=== PATIENT | female | born 1945 | race Caucasian/White ===

== ENCOUNTER 2023-02-25 09:36 | Outpatient (REF) | payer MEDICARE, SELFPAY ==
[2023-02-25 11:14] LABS: MANUAL DIFF FLAG NO
[2023-02-25 12:06] LABS: Basophils Absolute Auto 0.1 X10*3/uL (0.0-0.2); Basophils Percent Auto 0.9 % (0-2); Eosinophils Absolute Auto 0.2 X10*3/uL (0.0-0.4); Eosinophils Percent Auto 2.8 % (0-4); Hematocrit 39.5 % (37.0-47.0); Hemoglobin 13.3 g/dl (12.0-16.0); Imm Gran Abs Auto 0.01 X10*3/uL (0.00-0.03); Imm Gran Pct Auto 0.2 % (0.0-0.4); Lymphocytes Absolute Auto 2.5 X10*3/uL (1.2-4.9); Lymphocytes Percent Auto 38.5 % (20-40); Mean Corpuscular HGB Conc 33.7 g/dl (31.0-35.0); Mean Corpuscular Hemoglobin 31.5 pg (27.0-33.0); Mean Corpuscular Volume 93.6 fL (80.0-98.0); Mean Platelet Volume 9.3 fL (9.4-12.3); Monocytes Absolute Auto 0.6 X10*3/uL (0.1-1.2); Monocytes Percent Auto 9.7 % (2-11); Neutrophils Absolute Auto 3.1 x10*3/uL (2.0-8.3); Neutrophils Percent Auto 47.9 % (45-73); Platelet Count 217 X10*3/uL (160-400); Red Blood Count 4.22 X10*6/uL (4.20-5.50); Red Cell Distribution Width 13.5 % (11.0-16.0); White Blood Count 6.4 X10*3/uL (4.8-10.8)
[2023-02-25 14:32] LABS: Alanine Aminotransferase 32 U/L (0-31); Alkaline Phosphatase 84 U/L (39-117); Anion Gap 12 (12-20); Aspartate Amino Transferase 28 U/L (5-31); Bilirubin Total 0.6 mg/dL (0.0-1.0); Blood Urea Nitrogen 15 mg/dL (9-16); Calcium 9.1 mg/dL (8.4-10.2); Carbon Dioxide 27 mmol/L (22-29); Chloride 109 mmol/L (96-108); Estimated Glomerular Filt Rate > 60; Glucose Random 85 mg/dL (60-115); Sodium 144 mmol/L (135-145); Total Protein 6.6 g/dL (6.5-8.0)
[2023-02-25 14:52] LABS: Thyroid Stimulating Hormone 0.45 uIU/mL (0.32-4.0); Vitamin D 25-OH Total 24.7 ng/mL (>30)
== END 2023-02-25 09:37 | disposition home or self-care (01) ==
LOC: HO.MANLDS 09:36
PROVIDERS: Visit Provider Internal Medicine
DX: I10 Essential (primary) hypertension (principal); E03.9 Hypothyroidism, unspecified; Z13.21 Encounter for screening for nutritional disorder
CPT/HCPCS: 36415; 80053; 82306; 84443; 85025

== ENCOUNTER 2023-10-31 10:31 | Outpatient (REF) | payer MEDICARE, SELFPAY ==
[2023-11-01 09:09] LABS: Lyme Abs Screen <0.90 index
== END 2023-10-31 10:32 | disposition home or self-care (01) ==
LOC: HO.MANLDS 10:31
PROVIDERS: Visit Provider Internal Medicine
DX: A69.20 Lyme disease, unspecified (principal)
CPT/HCPCS: 36415; 86617; 86618

== ENCOUNTER 2025-03-13 09:40 | Outpatient (REF) | payer MEDICARE, SELFPAY ==
[2025-03-13 13:34] LABS: MANUAL DIFF FLAG NO
[2025-03-13 13:37] LABS: Basophils Absolute Auto 0.1 X10*3/uL (0.0-0.2); Eosinophils Absolute Auto 0.1 X10*3/uL (0.0-0.4); Eosinophils Percent Auto 1.5 % (0-4); Hematocrit 40.7 % (37.0-47.0); Hemoglobin 13.7 g/dl (12.0-16.0); Imm Gran Abs Auto 0.02 X10*3/uL (0.00-0.03); Imm Gran Pct Auto 0.3 % (0.0-0.4); Lymphocytes Absolute Auto 2.3 X10*3/uL (1.2-4.9); Lymphocytes Percent Auto 37.3 % (20-40); Mean Corpuscular HGB Conc 33.7 g/dl (31.0-35.0); Mean Corpuscular Hemoglobin 32.2 pg (27.0-33.0); Mean Corpuscular Volume 95.8 fL (80.0-98.0); Monocytes Absolute Auto 0.6 X10*3/uL (0.1-1.2); Monocytes Percent Auto 10.1 % (2-11); Neutrophils Percent Auto 49.8 % (45-73); Platelet Count 251 X10*3/uL (160-400); Red Blood Count 4.25 X10*6/uL (4.20-5.50); Red Cell Distribution Width 13.4 % (11.0-16.0); White Blood Count 6.1 X10*3/uL (4.8-10.8)
[2025-03-13 14:18] LABS: Alanine Aminotransferase 27 U/L (0-31); Albumin Level 4.1 g/dL (3.5-5.0); Alkaline Phosphatase 90 U/L (39-117); Anion Gap 13 (12-20); Aspartate Amino Transferase 31 U/L (5-31); Bilirubin Total 0.5 mg/dL (0.0-1.0); Blood Urea Nitrogen 16 mg/dL (9-16); Calcium 9.5 mg/dL (8.4-10.2); Carbon Dioxide 27 mmol/L (22-29); Chloride 106 mmol/L (96-108); Estimated Glomerular Filt Rate > 60; Glucose Random 102 mg/dL (60-115); Sodium 142 mmol/L (135-145); Total Protein 7.4 g/dL (6.5-8.0)
[2025-03-13 14:27] LABS: Thyroid Stimulating Hormone 3.89 uIU/mL (0.32-4.0)
== END 2025-03-13 09:41 | disposition home or self-care (01) ==
LOC: HO.MANLDS 09:40
PROVIDERS: Visit Provider Internal Medicine
DX: E78.00 Pure hypercholesterolemia, unspecified (principal); E03.9 Hypothyroidism, unspecified; I10 Essential (primary) hypertension
CPT/HCPCS: 36415; 80053; 84443; 85025

== ENCOUNTER 2025-11-11 09:00 | Outpatient (REF) | payer MEDICARE, SELFPAY ==
[2025-11-11 14:53] LABS: Appearance Urine Turbid; Glucose Urine UA Negative (Negative); PH 6.0 (5.0-9.0); UMIC TRIGGER UACC YES
[2025-11-11 14:58] LABS: Specific Gravity - Urine 1.025 (1.005-1.025)
[2025-11-11 15:04] LABS: UACC Culture Trigger YES
--- OUTSIDE RECORDS SUMMARY | 2025-11-11 16:00 | XMS_ITS | Encounter Summary ---
Author Organization [facility] Address [address] [place] [address] [place] [address] Phone Care Team Providers Care Certified Marine Mechanic Name Role Phone Salvador Alanis DO Primary Care Provider [phone] Encounter Details Date Type Department Care Team (Late Contact Info) Description 07/07/2021 Procedure Pass [facility], [address] [address] Social History Tobacco Use Types Packs/Day Years Used Date Smoking Tobacco: Never Smokeless Tobacco: Never Alcohol Use Standard Drinks/Week Comments No 0 (1 standard drink = 0.6 oz pur e alcohol) Comments No Sex and Gender Information Value Date Recorded Sex Assigned at Female 03/10/2018 11:16 AM EDT Legal Sex Female 10:10 PM EDT Gender Identity Female 03/10/2018 11:16 AM EDT Sexual Orientation Straight 03/10/2018 11 :16 AM EDT 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 Not on file N ot on file documented as of this encounter Plan of Treatment Upcoming Encounters Date Type Department Care Team (Late st Contact Info) Description 12/30/2025 1:00 PM EST Office Visit [facility] [address] [place] [address] 3rd Floor, [address] [place] [address] Cj Foreman MD 22 [facility], [address] [address] [email or web address] documented as of this encounter Visit Diagnoses Not on filedocumented in this encounter Care Teams Certified Marine Mechanic Relationship Specialty Start Date End Date Salvador Alanis DO [email or web address] PCP - General 09/01/17 documented as of this encounter Additional Source Comments The information contained in this document represents components of the legal health record. It is not the complete legal health record.[facility]
--- OUTSIDE RECORDS SUMMARY | 2025-11-11 16:00 | XMS_ITS | Encounter Summary ---
Author Organization [facility] Address [address] [place] [address] [place] [address] Phone Care Team Providers Care Sales And Marketing Vice President Name Role Phone Salvador Alanis DO Primary Care Provider [phone] Encounter Details Date Type Department Care Team (Late Contact Info) Description 06/01/2021 Procedure Pass [facility], [address] [address] Social History Tobacco Use Types Packs/Day Years [...] Description 12/30/2025 1:00 PM EST Office Visit [facility] [address] [place] [address] 3rd Floor, [address] [place] [address] Cj Foreman MD 22 [facility], [address] [address] [email or web address] documented as of this encounter Visit Diagnoses Not on filedocumented in this encounter Care Teams Sales And Marketing Vice President Relationship Specialty Start Date End Date Salvador Alanis DO [email or web address] PCP - General 09/01/17 documented as of this encounter Additional Source Comments The information contained in this document represents components of the legal health record. It is not the complete legal health record.[facility]
--- OUTSIDE RECORDS SUMMARY | 2025-11-11 16:00 | XMS_ITS | Encounter Summary ---
Author Organization [facility] Address [address] [facility] [address] [place] [address] Phone Care Team Providers Care Drip Box Tender Name Role Phone Salvador Alanis DO Primary Care Provider [phone] Encounter Details Date Type Department Care Team (Latest Contact Info) Description 12/31/2021 Transcribe Orders Virtual Department [address] [place] [address] Sheron Major PA [address] [facility] [place] [address] [place] [address] Other chest pain (Primary Dx) Social History Tobacco Use Types Packs/Day Years [...] Description 12/30/2025 1:00 PM EST Office Visit [facility] [address] [facility] 3rd Floor, [address] [place] [address] Cj Foreman MD 22 [facility], [address] [place] [address] documented as of this encounter Results * ECG 12-LEAD (01/04/2022 11:54 AM EST) Ventricular Rate EKG/MIN 62 BPM [facility] Atrial Rate 62 BPM [facility] NC Interval 208 ms [facility] QRS Duration 88 ms [facility] QT Interval 424 ms [facility] QTC Interval 430 ms [facility] P [place] 79 degrees [facility] R Wave [place] 36 degrees [facility] T Wave [place] 84 degrees [facility] 01/04/2022 11:5 4 AM EST 01/05/2022 8:39 AM EST Narrative [facility] - 01/05/2022 8:39 AM EST Normal sinus rhythm Possible Anterior infarct , age undetermined Abnormal ECG When compared with ECG of 07-DEC-2018 05:13, No significant change was found Confirmed by Brandon Maria ([id number]) on 01/05/2022 8:39:37 AM Sheron ESQUIVEL ECG ORDERABLES Final Resul t [facility] documented in this encounter Visit Diagnoses Diagnosis Other chest pain- Primary Other chest pain documented in this encounter Care Teams Drip Box Tender Relationship Specialty Start Date End Date Salvador Alanis DO PCP - General 09/01/17 documented as of this encounter Additional Source Comments The information contained in this document represents components of the legal health record. It is not the complete legal health record.[facility]
--- OUTSIDE RECORDS SUMMARY | 2025-11-11 16:00 | XMS_ITS | Encounter Summary ---
Author Organization [facility] Address [address] [facility] [address] [place] [address] Phone Care Team Providers Care Kitman Name Role Phone Salvador Alanis DO Primary Care Provider [phone] Encounter Details Date Type Department Care Team (Late st Contact Info) Description 09/24/2024 Procedure Pass [facility], [facility] [address] [place] [address] Social History Tobacco Use Types Packs/Day Years Used Date Smoking Tobacco: Never Smokeless Tobacco: Never Alcohol Use Standard Drinks/Week Comments No 0 (1 standard drink = 0.6 oz pur e alcohol) Home Health Assessment: Transportation Answer Date Recorded Lack of Transportation (Medical) No 04/19/2024 Lack of Transportation (Non-Medical) No 04/19/2024 Patient Unable or Declines to Respond No 04/19/2024 Education Answer Date Recorded Are you interested in more education? Not on nurys e 03/11/2023 Are you concerned about learning? Not on file 03/11/2023 No 03/11/2023 No 03/11/2023 Food Answer Date Recorded Within the past 6 months we worried whether our food would run out before we got money to buy more. Never True 02/27/2024 Within the past 6 months the food we bought just didn't last and we didn't have enough money to get more. Never True Residential Stability Answer Date Recor ded What is your housing situation today? I have tj sing 02/27/2024 How many times have you move d in the past 12 months? Zero (I did not move) 02/27/2024 Paying for Meds Answer Date Recorded Do you have trouble paying for medicines? No 02/27/2024 Paying Utility Bills Answer Date Record ed Do you have trouble paying your heating or elect ricity bill? No 02/27/2024 Transportation Answer Date Recorded Has the lack of transportati on kept you from medical appointments or from getting medications? No 02/27/2024 Digital Access Answer Date Recorded No 02/27/2024 Yes 02/27/2024 Do you have reliable internet access at home? Ye s 02/27/2024 Do you have a device (e.g., phone, tablet, computer) with a working camera? Yes 02/27/2024 Intimate Partner Violence Answer Date R ecorded Are you denied basic needs s uch as food, clothing, or medical care? No 02/27/2024 In the past 12 months have y ou been in a relationship with a person who hurts, threatens, or tries to control you? No 02/27/2024 Are you denied basic needs s uch as food, clothing, or medical care? No 02/27/2024 In the past 12 months have y ou been in a relationship with a person who hurts, threatens, or tries to control you? No 02/27/2024 Comments No Sex and Gender Information Value [...] Description 12/30/2025 1:00 PM EST Office Visit [facility] [address] [place] [address] 3rd Floor, [address] [place] [address] Cj Foreman MD [address] [place] [address], [address] [address] documented as of this encounter Visit Diagnoses Not on filedocumented in this encounter Care Teams Kitman Relationship Specialty Start Date End Date Salvador Alanis DO PCP - General 09/01/17 documented as of this encounter Additional Source Comments The information contained in this document represents components of the legal health record. It is not the complete legal health record.[facility]
--- OUTSIDE RECORDS SUMMARY | 2025-11-11 16:00 | XMS_ITS | Encounter Summary ---
Author Organization [facility] Address [address] [place] [address] [place] [address] Phone Care Team Providers Care Fire And Explosion Investigator Name Role Phone Salvador Alanis DO Primary Care Provider [phone] Encounter Details Date Type Department Care Team (Late st Contact Info) Description 05/09/2020 Ancillary Orders [facility] [address] [place] [address] Nickie Bird PA-C [address] [place] [address] Orth[facility] Medicine, [place] [address] [email or web address] Social History Tobacco Use Types Packs/Day Years [...] Description 12/30/2025 1:00 PM EST Office Visit [facility] [address] [place] [address] 3rd Floor, [address] [place], [place] [address] Cj Foreman MD 22 [facility], [address] [place] [address] [email or web address] documented as of this encounter Visit Diagnoses Not on filedocumented in this encounter Care Teams Fire And Explosion Investigator Relationship Specialty Start Date End Date IleanaSalvador mulliganDO [email or web address] PCP - General 09/01/17 documented as of this encounter Additional Source Comments The information contained in this document represents components of the legal health record. It is not the complete legal health record.[facility]
--- OUTSIDE RECORDS SUMMARY | 2025-11-11 16:00 | XMS_ITS | Encounter Summary ---
Author Organization [facility] Address [address] [facility] [address] [place] [address] Phone Care Team Providers Care Marine Engineering Technicians Name Role Phone Salvador Alanis DO Primary Care Provider [phone] Encounter Details Date Type Department Care Team (Late st Contact Info) Description 05/10/2025 Procedure Pass [facility] [address] [place] [address] Social History Tobacco Use Types Packs/Day Years [...] Description 12/30/2025 1:00 PM EST Office Visit [facility] [address] [place] [address] 3rd Floor, [address] [place] [address] Cj Foreman MD [address] [place] [address], [address] [address] documented as of this encounter Visit Diagnoses Not on filedocumented in this encounter Care Teams Marine Engineering Technicians Relationship Specialty Start Date End Date Salvador Alanis DO PCP - General 09/01/17 documented as of this encounter Additional Source Comments The information contained in this document represents components of the legal health record. It is not the complete legal health record.[facility]
--- OUTSIDE RECORDS SUMMARY | 2025-11-11 16:00 | XMS_ITS | Encounter Summary ---
Author Organization [facility] Address [address] [place] [address] [place] [address] Phone Care Team Providers Care Director School Of Nursing Name Role Phone Salvador Alanis DO Primary Care Provider [phone] Encounter Details Date Type Department Care Team (Late st Contact Info) Description 07/27/2022 Procedure Pass [facility], [address] [address] Social History Tobacco Use Types Packs/Day Years [...] Description 12/30/2025 1:00 PM EST Office Visit [facility] [address] [place] [address] 3rd Floor, [address] [place] [address] Cj Foreman MD 22 [facility], [address] [address] [email or web address] documented as of this encounter Visit Diagnoses Not on filedocumented in this encounter Care Teams Director School Of Nursing Relationship Specialty Start Date End Date Salvador Alanis DO [email or web address] PCP - General 09/01/17 documented as of this encounter Additional Source Comments The information contained in this document represents components of the legal health record. It is not the complete legal health record.[facility]
--- OUTSIDE RECORDS SUMMARY | 2025-11-11 16:00 | XMS_ITS | Encounter Summary ---
Author Organization [facility] Address [address] [facility] [address] [place] [address] Phone Care Team Providers Care Obstetrical Tech Name Role Phone Salvador Alanis DO Primary Care Provider Encounter Details Date Type Department Care Team (Late st Contact Info) Description 07/20/2024 Transcribe Orders [address] [address] Salvador Alanis DO [address] [facility] [address] [place], [place] [id number] Nonvenomous insect bite of face without infection, subsequent encounter (Primary Dx) Social History Tobacco Use Types [...] your housing situation today? I have tj gaines 02/27/2024 How many times have you move [...] Description 12/30/2025 1:00 PM EST Office Visit [facility] [address] [place] [address] 3rd Floor, [address] [place] [address] Cj Foreman MD 22 [facility], [address] [address] [email or web address] documented as of this encounter Results * Lyme Screen with Reflex to Immunoblot, Blood (07/20/2024 11:32 AM EDT) Lyme AB IgG Negative Negative [facility] Lyme AB IgM Negative Negative [facility] Blood 07/20/2024 11:3 2 AM EDT 07/20/2024 11:42 AM EDT us Salvador Alanis DO LAB BLOOD BKR ORDERABLES Final R esult [facility] [address] [place] [address] documented in this encounter Visit Diagnoses Diagnosis Nonvenomous insect bite of face without infection, subsequent encounter- Primary documented in this encounter Care Teams Obstetrical Tech Relationship Specialty Start Date End Date Salvador Alanis DO [email or web address] PCP - General 09/01/17 documented as of this encounter Additional Source Comments The information contained in this document represents components of the legal health record. It is not the complete legal health record.[facility]
--- OUTSIDE RECORDS SUMMARY | 2025-11-11 16:00 | XMS_ITS | Encounter Summary ---
Author Organization [facility] Address [address] [facility] [address] [place] [address] Phone Care Team Providers Care Analytical Engineer Name Role Phone Salvador Alanis DO Primary Care Provider [phone] Encounter Details Date Type Department Care Team (Late st Contact Info) Description 03/22/2025 Ancillary Orders [facility], [facility] [address] [place] [address] Salvador Alanis DO [address] [facility] [place] [address] [email or web address] Abnormal mammogram (Primary Dx) Social History Tobacco Use Types [...] Description 12/30/2025 1:00 PM EST Office Visit [facility] 22 [facility] 3rd Floor, [address] [place] [address] Cj Foreman MD 22 [facility], [address] [place] [address] [email or web address] documented as of this encounter Visit Diagnoses Diagnosis Abnormal mammogram- Primary Abnormal mammogram, unspecified documented in this encounter Care Teams Analytical Engineer Relationship Specialty Start Date End Date IleanaSalvador mulligan DO Jack [email or web address] PCP - General 09/01/17 documented as of this encounter Additional Source Comments The information contained in this document represents components of the legal health record. It is not the complete legal health record.[facility]
--- OUTSIDE RECORDS SUMMARY | 2025-11-11 16:00 | XMS_ITS | Encounter Summary ---
Author Organization [facility] Address [address] [facility] [address] [place] [address] Phone Care Team Providers Care Research Geologist Name Role Phone Salvador Alanis DO Primary Care Provider [phone] Encounter Details Date Type Department Care Team (Late Contact Info) Description 07/07/2021 Ancillary Orders [facility] Department [address] [place] [address] Salvador Alanis DO [address] [facility] [address] [place] [address] [email or web address] Breast screening Social History Tobacco Use Types Packs/Day Years [...] Description 12/30/2025 1:00 PM EST Office Visit [facility] [address] [facility] 3rd Floor, [address] [place] [address] Cj Foreman MD 22 [facility], [address] [place] [address] documented as of this encounter Results * BI MAMMOGRAM SCREENING WITH TOMOSYNTHESIS WITH CAD (BILATERAL) (09/25/2021 1:49 PM EST) Anatomical Region Laterality Modality Breast Left, Breast Right, Breast Bilateral Bila teral Mammography 09/25/2021 2:06 PM EST Impressions 09/25/2021 2:08 PM EST No mammographic evidence of malignancy. Recommend routine annual surveillance. BI-RADS CATEGORY: 2 - Benign finding. DENSITY: There are scattered fibroglandular densities. Narrative 09/25/2021 2:08 PM EST 76-year-old female with no current breast symptoms. Comparison made to previous on 09/24/2020 and as far back as 06/05/2015. Interpretation made in conjunction with computer-aided detection and tomosynthesis. There are scattered areas of fibroglandular density. Chronic left breast nodularity and benign bilateral micro/macro and vascular calcifications. There are no suspicious masses, areas of architectural distortion, or suspicious clusters of microcalcifications. Procedure Note Grady Bush MD - 09/25/2021 76-year-old female with no current breast symptoms. Comparison made toprevious on 09/24/2020 and as far back as 06/05/2015. Interpretation madein conjunction with computer-aided detection and tomosynthesis. There are scattered areas of fibroglandular density. Chronic left breastnodularity and benign bilateral micro/macro and vascular calcifications. There are no suspicious masses, areas of architectural distortion, orsuspicious clusters of microcalcifications. IMPRESSION: No mammographic evidence of malignancy. Recommend routine annualsurveillance. BI-RADS CATEGORY: 2 - Benign finding. DENSITY: There are scattered fibroglandular densities. us Salvador Alanis DO IMG MG EXAMS Final Result documented in this encounter Visit Diagnoses Diagnosis Breast screening Breast screening, unspecified Breast screening Breast screening, unspecified documented in this encounter Care Teams Research Geologist Relationship Specialty Start Date End Date Salvador Alanis DO [email or web address] PCP - General 09/01/17 documented as of this encounter Additional Source Comments The information contained in this document represents components of the legal health record. It is not the complete legal health record.[facility]
--- OUTSIDE RECORDS SUMMARY | 2025-11-11 16:00 | XMS_ITS | Encounter Summary ---
Author Organization [facility] Address [address] [place] [address] [place] [address] Phone Care Team Providers Care Bag Turner Name Role Phone Salvador Alanis DO Primary Care Provider [phone] Encounter Details Date Type Department Care Team (Late Contact Info) Description 08/14/2021 Procedure Pass [place] Admitting Dept - Virtual Department [address] [place] [address] Social History Tobacco Use Types Packs/Day Years [...] Description 12/30/2025 1:00 PM EST Office Visit [facility] [address] [place] [address] 3rd Floor, [address] [place] [address] Cj Foreman MD 22 [facility], [address] [address] [email or web address] documented as of this encounter Visit Diagnoses Not on filedocumented in this encounter Care Teams Bag Turner Relationship Specialty Start Date End Date Salvador Alanis DO [email or web address] PCP - General 09/01/17 documented as of this encounter Additional Source Comments The information contained in this document represents components of the legal health record. It is not the complete legal health record.[facility]
--- OUTSIDE RECORDS SUMMARY | 2025-11-11 16:00 | XMS_ITS | Encounter Summary ---
Author Organization [facility] Address [address] [place] [address] [place] [address] Phone Care Team Providers Care Aluminum Siding Mechanic Name Role Phone Salvador Alanis DO Primary Care Provider [phone] Encounter Details Date Type Department Care Team (Late st Contact Info) Description 05/09/2020 Ancillary Orders [address] [address] Nickie Bird PA-C [address] [place] [address] Orthopedics & Sports Medicine, [place] [address] [email or web address] Left ankle pain, unspecified chronicity Social History Tobacco Use Types Packs/Day Years [...] Description 12/30/2025 1:00 PM EST Office Visit [facility] [address] [place] [address] 3rd Floor, [address] [place] [address] Cj Foreman MD 22 [facility], [address] [place] [address] [email or web address] documented as of this encounter Results * XR ANKLE 3 OR MORE VIEWS (LEFT) (05/09/2020 2:53 PM EDT) Narrative SYSTEMGENERATED, DOCUMENTATION - 05/09/2020 2:53 PM EDT This image report has been auto-finalized and has not been read by a Radiologist. Interpretation has been included in the provider encounter note for this date of service. Nickie Bird PA-C IMG XR LOWER EXTREMITY F inal Result documented in this encounter Visit Diagnoses Diagnosis Left ankle pain, unspecified chronicity Left ankle pain, unspecified chronicity documented in this encounter Care Teams Aluminum Siding Mechanic Relationship Specialty Start Date End Date Salvador Alanis DO [email or web address] PCP - General 09/01/17 documented as of this encounter Additional Source Comments The information contained in this document represents components of the legal health record. It is not the complete legal health record.[facility]
--- OUTSIDE RECORDS SUMMARY | 2025-11-11 16:00 | XMS_ITS | Encounter Summary ---
Author Organization [facility] Address [address] [facility] [address] [place] [address] Phone Care Team Providers Care Otologist Name Role Phone Salvador Alanis DO Primary Care Provider [phone] Encounter Details Date Type Department Care Team (Late st Contact Info) Description 04/10/2025 Ancillary Orders [facility], Mammography- [facility] [address] [place] [address] Salvador Alanis DO [address] [place] [address] [email or web address] Abnormal mammogram (Primary Dx); Other abnormal and inconclusive findings on diagnostic imaging of breast Social History Tobacco Use Types Packs/Day Years [...] 12/30/2025 1:00 PM EST Office Visit [facility] [address] [place] [address] 3rd Floor, [address] [place] [address] Cj Foreman MD [address] [facility], [address] [place] [address] documented as of this encounter Results * BI MAMMOGRAM DIAGNOSTIC WITH TOMOSYNTHESIS WITH CAD (LEFT) (05/01/2025 1:58 PM EDT) Anatomical Region Laterality Modality Breast Left Left Mammography 05/01/2025 2:04 PM EDT Impressions 05/01/2025 2:46 PM EDT No imaging findings suspicious for malignancy. Bilateral screening mammography recommended in one year. BI-RADS 2 BENIGN Results and recommendations were communicated to the patient at time of examination. Narrative 05/01/2025 2:46 PM EDT BI MAMMOGRAM DIAGNOSTIC WITH TOMOSYNTHESIS WITH CAD (LEFT), BI US BREAST LIMITED (LEFT) Additional patient information: COMPARISON: Comparison is made with relevant prior imaging. Breast composition: There are scattered areas of fibroglandular density. FINDINGS: Left Mammogram: There is no persisting suspicious focal asymmetry in the anterior left breast. Ultrasound scanning of all of the subareolar and periareolar portions of the breast are performed. There is no sonographic abnormality. The finding is consistent with superimposed benign fibroglandular tissue. Procedure Note Andrea Flores MD - 05/01/2025 BI MAMMOGRAM DIAGNOSTIC WITH TOMOSYNTHESIS WITH CAD (LEFT), BI US BREASTLIMITED (LEFT) Additional patient information: COMPARISON: Comparison is made with relevant prior imaging. Breast composition: There are scattered areas of fibroglandular density. FINDINGS: Left Mammogram: There is no persisting suspicious focal asymmetry in the anterior leftbreast. Ultrasound scanning of all of the subareolar and periareolarportions of the breast are performed. There is no sonographic abnormality.The finding is consistent with superimposed benign fibroglandulartissue. IMPRESSION: No imaging findings suspicious for malignancy. Bilateral screeningmammography recommended in one year. BI-RADS 2 BENIGN Results and recommendations were communicated to the patient at time ofexamination. us Salvador A Bigda DO IMG MG EXAMS Final Result documented in this encounter Visit Diagnoses Diagnosis Abnormal mammogram- Primary Abnormal mammogram, unspecified Other abnormal and inconclusive findings on diagnostic imaging of breast Other abnormal and inconclusive findings on diagnostic imaging of breast documented in this encounter Care Teams Otologist Relationship Specialty Start Date End Date Salvador Alanis DO [email or web address] PCP - General 09/01/17 documented as of this encounter Additional Source Comments The information contained in this document represents components of the legal health record. It is not the complete legal health record.[facility]
--- OUTSIDE RECORDS SUMMARY | 2025-11-11 16:00 | XMS_ITS | Encounter Summary ---
Author Organization [facility] Address [address] [place] [address] [place] [address] Phone Care Team Providers Care Chief Minister Name Role Phone Salvador Alanis DO Primary Care Provider [phone] Reason for Referral * MRI/CAT Scan - Closed Specialty Diagnoses / Procedures Referred By Tara t Referred To Contact Radiology Diagnoses Mass of right knee Procedures MRI Knee (Right) Tyler Abebe MD Phone: tel: fax: [email or web address] Referral ID Status Reason Start Date Expiration Date Visits Re quested Visits Authorized [id number] Closed 06/01/2021 06/01/2022 1 1 Encounter Details Date Type Department Care Team (Late st Contact Info) Description 06/01/2021 Transcribe Orders Virtual Department 30 [place] [address] Tyler Abebe MD [address] [address] [email or web address] Mass of right knee (Primary Dx) Social History Tobacco Use Types [...] Date 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 Not on file Not on file N ot on file documented as of this encounter Plan of Treatment Upcoming Encounters Date Type Department Care Team (Late st Contact Info) Description 12/30/2025 1:00 PM EST Office Visit [facility] [address] [facility] 3rd Floor, [address] [place] [address] Cj Foreman MD 22 [facility], [address] [place] [address] [email or web address] documented as of this encounter Results * MRI KNEE WITHOUT CONTRAST (RIGHT) (06/18/2021 5:58 PM EDT) Anatomical Region Laterality Modality Knee Right Magnetic Resonan ce 06/18/2021 6:18 PM EDT Impressions 06/18/2021 6:40 PM EDT Fatty lesion at the posterior lateral margin of the knee does not have geographic defining boundaries of lipoma. No clearly worrisome components currently apparent. Degenerative changes about the knee as above described. Narrative 06/18/2021 6:40 PM EDT HISTORY: Right knee mass, lipomatous COMPARISON: Radiographs September 2013 TECHNIQUE: Exam performed on a 1.5 Natasha high-field MRI scanner. 3 plane axial proton density with fat saturation, sagittal T2 with fat saturation, and sagittal T1-weighted sequences are obtained. FINDINGS: A BB is placed in the region of the mass along the posterior medial aspect of the knee. There are no specific finding features of this area such as a capsule. There is some interstitial connective tissue apparent but it is no different than that seen elsewhere about the knee. No nonfatty soft tissue components apparent. Cruciate ligaments intact. Extensive degenerative change in the medial compartment including stents of degenerative tearing of medial meniscus and peripheral extrusion of mid-body. There is osteophyte formation anteriorly and peripherally. Lateral compartment has some cartilage heterogeneity and some irregularity but without the cartilage loss seen at the medial compartment. Degenerative signal is seen in the lateral meniscus without similar degrees of degenerative tearing. There is thinning in the patellar cartilage, more over the medial facet and lateral. No abnormal intra-axial. Only trace joint effusion. Trace Spencer's cyst. No worrisome marrow signal change. There does appear to be tendinopathy and some bony proliferation near the medial head gastrocnemius origin with what is probably some type change at was evident on the prior radiographs as well. There is abnormal signal and some tendon separation along the margin there. There is a small bony density near the origin of the lateral head of the gastrocnemius which could be a small tug change as well. This is less likely to be a sequestered body and is probably attached based on the T1 sagittal appearance. No worrisome marrow signal changes. Procedure Note Brandon Minor MD - 06/18/2021 HISTORY: Right knee mass, lipomatous COMPARISON: Radiographs September 2013 TECHNIQUE: Exam performed on a 1.5 Natasha high-field MRI scanner. 3 planeaxial proton density with fat saturation, sagittal T2 with fat saturation,and sagittal T1- weighted sequences are obtained. FINDINGS: A BB is placed in the region of the mass along the posterior medial aspectof the knee. There are no specific finding features of this area such as acapsule. There is some interstitial connective tissue apparent but it isno different than that seen elsewhere about the knee. No nonfatty softtissue components apparent. Cruciate ligaments intact. Extensive degenerative change in the medialcompartment including stents of degenerative tearing of medial meniscusand peripheral extrusion of mid-body. There is osteophyte formationanteriorly and peripherally. Lateral compartment has some cartilageheterogeneity and some irregularity but without the cartilage loss seen atthe medial compartment. Degenerative signal is seen in the lateralmeniscus without similar degrees of degenerative tearing. There is thinning in the patellar cartilage, more over the medial facetand lateral. No abnormal intra-axial. Only trace joint effusion. TraceBaker's cyst. No worrisome marrow signal change. There does appear to be tendinopathyand some bony proliferation near the medial head gastrocnemius origin withwhat is probably some type change at was evident on the prior radiographsas well. There is abnormal signal and some tendon separation along themargin there. There is a small bony density near the origin of the lateralhead of the gastrocnemius which could be a small tug change as well. Thisis less likely to be a sequestered body and is probably attached based onthe T1 sagittal appearance. No worrisome marrow signal changes. IMPRESSION: Fatty lesion at the posterior lateral margin of the knee does not havegeographic defining boundaries of lipoma. No clearly worrisome componentscurrently apparent. Degenerative changes about the knee as abovedescribed. us Tyler Abebe MD IMG MR EXTREMITY Final Res ult documented in this encounter Visit Diagnoses Diagnosis Mass of right knee- Primary Mass of right knee documented in this encounter Care Teams Chief Minister Relationship Specialty Start Date End Date Salvador Alanis DO [email or web address] PCP - General 09/01/17 documented as of this encounter Additional Source Comments The information contained in this document represents components of the legal health record. It is not the complete legal health record.[facility]
--- OUTSIDE RECORDS SUMMARY | 2025-11-11 16:00 | XMS_ITS | Encounter Summary ---
Author Organization [facility] Address [address] [place] [address] Phone Care Team Providers Care Sanitarian Inspector Name Role Phone Salvador Alanis DO Primary Care Provider [phone] Reason for Referral * MRI/CAT Scan - Closed Specialty Diagnoses / Procedures Referred By Tara pruett Referred To Contact Radiology Diagnoses Family history of ischemic heart disease and other diseases of the circulatory system Procedures MRI Angio Brain Salvador Alanis DO Phone: tel: fax: [email or web address] Referral ID Status Reason Start Date Expiration Date Visits Re quested Visits Authorized [id number] Closed 10/27/2022 10/27/2023 1 1 Encounter Details Date Type Department Care Team (Late st Contact Info) Description 10/27/2022 Transcribe Orders Virtual Department [address] [place] [address] Salvador Alanis DO [address] [place] [address] [email or web address] Family history of ischemic heart disease and other diseases of the circulatory system (Primary Dx) Social History Tobacco Use Types [...] Description 12/30/2025 1:00 PM EST Office Visit [facility] [address] [facility] 3rd Floor, [address] [place] [address] Cj Foreman MD 22 [facility], [address] [place] [address] [email or web address] documented as of this encounter Results * MRA HEAD WITHOUT CONTRAST (01/02/2023 1:54 PM EST) Anatomical Region Laterality Modality Head Magnetic Resonan ce 01/03/2023 12:3 8 PM EST Impressions 01/03/2023 3:29 PM EST No evidence of cerebral artery aneurysms. No other significant abnormalities on MRA of the brain. Narrative 01/03/2023 3:29 PM EST MRI ANGIO BRAIN WITHOUT CONTRAST HISTORY: First-degree relative with cerebral artery aneurysm. High risk screening. TECHNIQUE: MRI ANGIO BRAIN WITHOUT CONTRAST MRA of the head was performed utilizing yrwq-oq-jxvgnh technique (no gadolinium). Maximal intensity projection 3D angiographic reformatted images were performed. COMPARISON: CT brain 12/07/2018. FINDINGS: MRA HEAD: Anterior Circulation: Normal flow within the intracranial internal carotid arteries, anterior cerebral arteries and the middle cerebral arteries. No severe stenosis, occlusion, aneurysm or arteriovenous malformation. Posterior Circulation: Normal flow within the intracranial vertebral arteries, basilar artery and posterior cerebral arteries. No severe stenosis, occlusion, aneurysm or arteriovenous malformation. Procedure Note Andrea Flores MD - 01/03/2023 MRI ANGIO BRAIN WITHOUT CONTRAST HISTORY: First-degree relative with cerebral artery aneurysm. High riskscreening. TECHNIQUE: MRI ANGIO BRAIN WITHOUT CONTRAST MRA of the head was performed utilizing jlwp-gu-fqgaow technique (nogadolinium). Maximal intensity projection 3D angiographic reformattedimages were performed. COMPARISON: CT brain 12/07/2018. FINDINGS: MRA HEAD: Anterior Circulation: Normal flow within the intracranial internal carotidarteries, anterior cerebral arteries and the middle cerebral arteries. Nosevere stenosis, occlusion, aneurysm or arteriovenous malformation. Posterior Circulation: Normal flow within the intracranial vertebralarteries, basilar artery and posterior cerebral arteries. No severestenosis, occlusion, aneurysm or arteriovenous malformation. IMPRESSION: No evidence of cerebral artery aneurysms. No other significantabnormalities on MRA of the brain. Salvador Alanis DO IMG MR HEAD/NECK Final Result documented in this encounter Visit Diagnoses Diagnosis Family history of ischemic heart disease and other diseases of the circulatory system- Primary Family history of ischemic heart disease and other diseases of the circulatory system documented in this encounter Care Teams Sanitarian Inspector Relationship Specialty Start Date End Date Salvador Alanis DO [email or web address] PCP - General 09/01/17 documented as of this encounter Additional Source Comments The information contained in this document represents components of the legal health record. It is not the complete legal health record.[facility]
--- OUTSIDE RECORDS SUMMARY | 2025-11-11 16:00 | XMS_ITS | Encounter Summary ---
Author Organization [facility] Address [address] [place] [address] Phone Care Team Providers Care Historic Preservationist Name Role Phone Salvador Alanis DO Primary Care Provider [phone] Reason for Referral * Physical Therapy (Routine) - Closed Specialty Diagnoses / Procedures Referred By Tara pruett Referred To Contact Physical Therapy Diagnoses Encounter for rehabilitation System, Provider Not In, [facility] [id number] [place] [address] Phone: tel: Referral ID Status Reason Start Date Expiration Date Visits Re quested Visits Authorized [id number] Closed 05/08/2019 11/13/2019 25 25 Encounter Details Date Type Department Care Team (Late st Contact Info) Description 05/08/2019 Transcribe Orders [facility] [address] [place] [address] Salvador Alanis DO [address] [place] [address] [email or web address] Encounter for rehabilitation (Primary Dx) Social History Tobacco Use Types [...] Office Visit [facility] [address] [facility] 3rd Floor, [address] [place] [address] Cj Foreman MD [address] [facility], [address] [place] [address] [email or web address] Scheduled Referrals Name Type Priority Associated Diagnoses Orde r Schedule Ambulatory referral to [facility] Physical Therapy Outpatient Referral Routine Encounter for rehabilitation Ordered: 05/08/2019 documented as of this encounter Visit Diagnoses Diagnosis Encounter for rehabilitation- Primary documented in this encounter Care Teams Historic Preservationist Relationship Specialty Start Date End Date Salvador Alanis DO [email or web address] PCP - General 09/01/17 documented as of this encounter Additional Source Comments The information contained in this document represents components of the legal health record. It is not the complete legal health record.[facility]
--- OUTSIDE RECORDS SUMMARY | 2025-11-11 16:00 | XMS_ITS | Encounter Summary ---
Author Organization [facility] Address [address] [place] [address] [place] [address] Phone Care Team Providers Care Finishing Supervisor Name Role Phone Salvdaor Alanis DO Primary Care Provider [phone] Encounter Details Date Type Department Care Team (Late st Contact Info) Description 12/26/2024 Procedure Pass [facility] [address] [place] [address] Social History Tobacco Use Types Packs/Day Years [...] Description 12/30/2025 1:00 PM EST Office Visit [facility] [address] [place] [address] 3rd Floor, [address] [place] [address] Cj Foreman MD [address] [place] [address], [address] [address] documented as of this encounter Visit Diagnoses Not on filedocumented in this encounter Care Teams Finishing Supervisor Relationship Specialty Start Date End Date Salvador Alanis DO PCP - General 09/01/17 documented as of this encounter Additional Source Comments The information contained in this document represents components of the legal health record. It is not the complete legal health record.[facility]
--- OUTSIDE RECORDS SUMMARY | 2025-11-11 16:01 | XMS_ITS | Encounter Summary ---
Author Organization [facility] Address [address] [facility] [address] [place] [address] Phone Care Team Providers Care Community Organization Worker Name Role Phone Salvador Alanis DO Primary Care Provider [phone] Encounter Details Date Type Department Care Team (Late st Contact Info) Description 04/10/2025 Ancillary Orders [facility], Mammography- [facility] [address] [place] [address] Salvador Alanis DO [address] [place] [address] [email or web address] Abnormal mammogram (Primary Dx); Other abnormal and [...] Description 12/30/2025 1:00 PM EST Office Visit [facility] [address] [place] [address] 3rd Floor, [address] [place] [address] Cj Foreman MD [address] [facility], [address] [place] [address] [email or web address] documented as of this encounter Results * BI US BREAST LIMITED (LEFT) (05/01/2025 2:42 PM EDT) Anatomical Region Laterality Modality Breast Left, Breast Bilateral Left Ul trasound 05/01/2025 2:04 PM EDT Impressions 05/01/2025 2:46 [...] ofexamination. us Salvador A Bigda DO IMG US BREAST Final Result documented in this encounter Visit Diagnoses Diagnosis Abnormal mammogram- Primary Abnormal mammogram, unspecified Other abnormal and inconclusive findings on diagnostic imaging of breast Other abnormal and inconclusive findings on diagnostic imaging of breast documented in this encounter Care Teams Community Organization Worker Relationship Specialty Start Date End Date Salvador Alanis DO [email or web address] PCP - General 09/01/17 documented as of this encounter Additional Source Comments The information contained in this document represents components of the legal health record. It is not the complete legal health record.[facility]
--- OUTSIDE RECORDS SUMMARY | 2025-11-11 16:01 | XMS_ITS | Encounter Summary ---
Author Organization [facility] Address [address] [place] [address] [place] [address] Phone Care Team Providers Care Freight Unloader Name Role Phone Salvador Alanis DO Primary Care Provider [phone] Encounter Details Date Type Department Care Team (Late st Contact Info) Description 11/03/2021 Procedure Pass [facility] [address] [place] [address] Social History Tobacco Use Types Packs/Day Years [...] 12/30/2025 1:00 PM EST Office Visit [facility] [address] [place] [address] 3rd Floor, [address] [place] [address] Cj Foreman MD 22 [facility], [address] [place] [address] [email or web address] documented as of this encounter Visit Diagnoses Not on filedocumented in this encounter Care Teams Freight Unloader Relationship Specialty Start Date End Date Salvador Alanis DO [email or web address] PCP - General 09/01/17 documented as of this encounter Additional Source Comments The information contained in this document represents components of the legal health record. It is not the complete legal health record.[facility]
--- OUTSIDE RECORDS SUMMARY | 2025-11-11 16:01 | XMS_ITS | Encounter Summary ---
Author Organization [facility] Address [address] [place] [address] Phone Care Team Providers Care Forge Helper Name Role Phone London Persaud DO Primary Care Provider [phone] Encounter Details Date Type Department Care Team (Late st Contact Info) Description 11/02/2024 Transcribe Orders Virtual Department 30 [place] [address] London Persaud DO [address] [facility] [address] [email or web address] Encounter for screening for osteoporosis (Primary Dx) Social History Tobacco Use Types [...] Description 12/30/2025 1:00 PM EST Office Visit [facility] [address] [place] [address] 3rd Floor, [address] [place] [address] Cj Foreman MD 22 [facility], [address] [place] [address] documented as of this encounter Results * BD DXA AXIAL (SPINE) WITH HIP (09/11/2025 1:16 PM EDT) Anatomical Region Laterality Modality Bone Density Bone Density 09/11/2025 1:13 PM EDT Impressions 09/12/2025 4:44 PM EDT Interpretation: Osteoporosis. Narrative 09/12/2025 4:44 PM EDT Referred By: LONDON PERSAUD Indications: Osteoporosis Scanner: [email or web address] A with serial# of [id number] located at [facility] Bone Density Scan (DXA) 09/11/25 Details of prior DXA scans are available by clicking View Full Report BMD T- Z- Skeletal Site gm/cm2 score score BMD Change Since Prior Scan ------ ----- ----- PA Spine (L1 L2 L3) 1.008 -0.10 2.60 0.026 (2.6%)* since 01/16/2019 Total Hip (Left) 0.747 -1.60 0.60 -0.100 (-11.8%)* since 01/16/2019 Femoral Neck (Left) 0.563 -2.60 -0.20 -0.029 (-4.9%)* since 01/16/2019 ------ ----- ----- * Denotes significant change when >= 0.022 g/cm2 for the spine, 0.027 g/cm2 for the total hip, 0.029 g/cm2 for the femoral neck. Interpretation: Osteoporosis. Technical Quality: The PA Spine scan was of marginal quality because of scoliosis (which can decrease or increase BMD). FRAX: A FRAX(r) score was not calculated because the patient indicated they had a fragility fracture of spine or hip, which is generally an indication for osteoporosis treatment. Reviewed By: Qiuta Garza MD on 09/12/2025 16:44:19 Additional Information: -World Health Organization criteria classify adults based on lowest T-score at PA spine, hip or forearm: Normal (T-score >= -1.0), Osteopenia (T-score between -1 and -2.5), or Osteoporosis (T-score <= -2.5). At [facility], T-scores are compared to peak bone density of a young white gender matched reference population. - For premenopausal women and men under the age of 50, Z-scores (comparison to age, gender, and ethnicity matched reference population) are used: Above expected range for age (Z-score >= 2.0), Within expected range of age (Z-score 1.9 to -1.9), or Below expected range for age (Z-score <= -2.0). - The Bone Health and Osteoporosis Foundation recommends that treatment be considered in men aged more than 50 years and in postmenopausal women with ANY of the following: Prior hip or vertebral fractures; T-score of <= -2.5 at the PA spine or hip; or 10 year fracture probability by FRAX of >= 3% for the hip or >= 20% for major osteoporotic fracture. - The FRAX algorithm (https://www.arie.ac.uk/FRAX/tool.aspx) is designed to predict 10-year fracture risk in treatment-naive adults between the ages of 40 and 90. It is not intended to be used in those receiving pharmacologic osteoporosis treatment. - The TBS is derived from the texture of the DXA spine image and has been shown to be related to bone microarchitecture and fracture risk. This data provides information independent of BMD value. It adds to fracture risk assessment with a FRAX adjusted for TBS score. If your patient had a TBS and qualified for a FRAX score, the reported FRAX score has been adjusted for TBS. TBS Score Interpretation 1.350 and greater Normal bone microarchitecture 1.200 to 1.350 Partially degraded bone microarchitecture 1.200 and less Degraded bone microarchitecture - Including race/ethnicity in the generation of T- or Z-scores or in the FRAX calculation is complicated, and currently undergoing active review to ensure that we can give patients the best information on their risk of fracture. - Some prior studies may not be compatible with our comparison software. - Click on View Full Report to see subsequent pages with images and prior bone density results. Procedure Note Quita Garza MD - 09/12/2025 Referred By: LONDON PERSAUD Indications: Osteoporosis Scanner: [email or web address] A with serial# of [id number] located at [facility] Bone Density Scan (DXA) 09/11/25 Details of prior DXA scans are available by clicking View Full Report BMD T- Z- Skeletal Site gm/cm2 score score BMD Change Since Prior Scan ------ ----- PA Spine (L1 L2 L3) 1.008 -0.10 2.60 0.026 (2.6%)* since01/16/2019 Total Hip (Left) 0.747 -1.60 0.60 -0.100 (-11.8%)* since01/16/2019 Femoral Neck (Left) 0.563 -2.60 -0.20 -0.029 (-4.9%)* 01/16/2019 ------ ----- * Denotes significant change when >= 0.022 g/cm2 for the spine, 0.027g/cm2 for the total hip, 0.029 g/cm2 for the femoral neck. Interpretation: Osteoporosis. Technical Quality: The PA Spine scan was of marginal quality because of scoliosis (which can decrease or increase BMD). FRAX: A FRAX(r) score was not calculated because the patient indicatedthey had a fragility fracture of spine or hip, which is generally an indication for osteoporosis treatment. Reviewed By: Quita Garza MD on 09/12/2025 16:44:19 Additional Information: -World Health Organization criteria classify adults based on lowestT-score at PA spine, hip or forearm: Normal (T-score >= -1.0), Osteopenia (T-score between -1 and -2.5), or Osteoporosis (T-score <= -2.5). At [facility], T-scores are compared to peak bone density of a young white gender matched reference population. - For premenopausal women and men under the age of 50, Z-scores(comparison to age, gender, and ethnicity matched reference population) are used:Above expected range for age (Z-score >= 2.0), Within expected range of age (Z-score 1.9 to -1.9), or Below expected range for age (Z-score <= -2.0). - The Bone Health and Osteoporosis Foundation recommends that treatment be considered in men aged more than 50 years and in postmenopausal women with ANY of the following: Prior hip or vertebral fractures; T-score of <= -2.5 at the PA spine or hip; or 10 year fracture probability by FRAX of >= 3%for the hip or >= 20% for major osteoporotic fracture. - The FRAX algorithm (https://www.arie.ac.uk/FRAX/tool.aspx) is designed to predict 10-year fracture risk in treatment-naive adultsbetween the ages of 40 and 90. It is not intended to be used in those receiving pharmacologic osteoporosis treatment. - The TBS is derived from the texture of the DXA spine image and has been shown to be related to bone microarchitecture and fracture risk. This data provides information independent of BMD value. It adds to fracture risk assessment with a FRAX adjusted for TBS score. If your patient had a TBSand qualified for a FRAX score, the reported FRAX score has been adjusted for TBS. TBS Score Interpretation 1.350 and greater Normal bone microarchitecture 1.200 to 1.350 Partially degraded bone microarchitecture 1.200 and less Degraded bone microarchitecture - Including race/ethnicity in the generation of T- or Z-scores or in the FRAX calculation is complicated, and currently undergoing active review to ensure that we can give patients the best information on their risk of fracture. - Some prior studies may not be compatible with our comparison software. - Click on View Full Report to see subsequent pages with images andprior bone density results. IMPRESSION: Interpretation: Osteoporosis. us London Persaud DO IMG BD BONE DENSITY DEXA Final R esult documented in this encounter Visit Diagnoses Diagnosis Encounter for screening for osteoporosis- Primary Encounter for screening for osteoporosis documented in this encounter Care Teams Forge Helper Relationship Specialty Start Date End Date London Persaud DO [email or web address] PCP - General 09/01/17 documented as of this encounter Additional Source Comments The information contained in this document represents components of the legal health record. It is not the complete legal health record.[facility]
--- OUTSIDE RECORDS SUMMARY | 2025-11-11 16:01 | XMS_ITS | Encounter Summary ---
Author Organization [facility] Address [address] [place] [address] Phone Care Team Providers Care Problem Manager Name Role Phone Salvador Alanis DO Primary Care Provider [phone] Encounter Details Date Type Department Care Team (Late st Contact Info) Description 03/05/2025 Transcribe Orders Virtual Department 30 [place] [address] Salvador Alanis DO [address] [facility] [place] [address] [email or web address] Chronic cough (Primary Dx) Social History Tobacco Use Types [...] Description 12/30/2025 1:00 PM EST Office Visit [facility] [address] [place] [address] 3rd Floor, [address] [place] [address] Cj Foreman MD 22 [facility], [address] [place] [address] documented as of this encounter Results * XR PARANASAL SINUSES 3 OR MORE VIEWS (03/06/2025 11:39 AM EDT) Anatomical Region Laterality Modality Face Computed Radiogr aphy 03/06/2025 10:0 2 PM EDT Impressions 03/06/2025 10:07 PM EDT Possible left maxillary sinus polyp. Narrative 03/06/2025 10:07 PM EDT XR PARANASAL SINUSES 3 OR MORE VIEWS Referring clinician's provided indication for this examination in Epic: Outside Radiology Order; chronic cough COMPARISON: None FINDINGS: Frontal sinus is hypoplastic. Rounded soft tissue in the left maxillary sinus could reflect a polyp. Right maxillary sinus sphenoid sinus, and ethmoid air cells well-aerated and clear. Mastoid air cells clear. Procedure Note Arianna Benavidez MD - 03/06/2025 XR PARANASAL SINUSES 3 OR MORE VIEWS Referring clinician's provided indication for this examination in Epic:Outside Radiology Order; chronic cough COMPARISON: None FINDINGS: Frontal sinus is hypoplastic. Rounded soft tissue in the left maxillarysinus could reflect a polyp. Right maxillary sinus sphenoid sinus, andethmoid air cells well-aerated and clear. Mastoid air cells clear. IMPRESSION: Possible left maxillary sinus polyp. Salvador Alanis DO IMG XR HEAD AND SHUNT SERIES Fin al Result documented in this encounter Visit Diagnoses Diagnosis Chronic cough- Primary Cough Chronic cough Cough documented in this encounter Care Teams Problem Manager Relationship Specialty Start Date End Date Salvador Alanis DO PCP - General 09/01/17 documented as of this encounter Additional Source Comments The information contained in this document represents components of the legal health record. It is not the complete legal health record.[facility]
--- OUTSIDE RECORDS SUMMARY | 2025-11-11 16:01 | XMS_ITS | Encounter Summary ---
Author Organization [facility] Address [address] [place] [address] Phone Care Team Providers Care Shipwright Supervisor Name Role Phone Salvador Alanis DO Primary Care Provider [phone] Reason for Referral * Physical Therapy (Routine) - Closed Specialty Diagnoses / Procedures Referred By Tara pruett Referred To Contact Physical Therapy Diagnoses Encounter for rehabilitation Marilee Henry PA-C Phone: tel: fax: [email or web address] [address] [address] Phone: tel: Referral ID Status Reason Start Date Expiration Date Visits Re quested Visits Authorized [id number] Closed 12/12/2018 12/12/2019 1 1 Encounter Details Date Type Department Care Team (Late st Contact Info) Description 12/12/2018 Transcribe Orders [facility] [address] [place] [id number] Salvador Alanis DO [address] [place] [address] [place] [address] Encounter for rehabilitation (Primary Dx) Social History [...] Description 12/30/2025 1:00 PM EST Office Visit [facility] [address] [facility] 3rd Floor, [address] [place] [address] Cj Foreman MD 22 [facility], [address] [place] [address] [email or web address] Scheduled Referrals Name Type Priority Associated Diagnoses Orde r Schedule Ambulatory referral to [facility] Physical Therapy Outpatient Referral Routine Encounter for rehabilitation Ordered: 12/12/2018 documented as of this encounter Visit Diagnoses Diagnosis Encounter for rehabilitation- Primary documented in this encounter Care Teams Shipwright Supervisor Relationship Specialty Start Date End Date Salvador Alanis DO PCP - General 09/01/17 documented as of this encounter Additional Source Comments The information contained in this document represents components of the legal health record. It is not the complete legal health record.[facility]
--- OUTSIDE RECORDS SUMMARY | 2025-11-11 16:01 | XMS_ITS | Encounter Summary ---
Author Organization [facility] Address [address] [place] [address] [place] [address] Phone Care Team Providers Care Oceanographer Geological Name Role Phone Salvador Alanis DO Primary Care Provider [phone] Encounter Details Date Type Department Care Team (Late Contact Info) Description 10/27/2022 Procedure Pass [facility], [address] [address] Social History Tobacco Use Types Packs/Day Years [...] Description 12/30/2025 1:00 PM EST Office Visit [facility] [address] [place] [address] 3rd Floor, [address] [place] [address] Cj Foreman MD 22 [facility], [address] [address] [email or web address] documented as of this encounter Visit Diagnoses Not on filedocumented in this encounter Care Teams Oceanographer Geological Relationship Specialty Start Date End Date Salvador Alanis DO [email or web address] PCP - General 09/01/17 documented as of this encounter Additional Source Comments The information contained in this document represents components of the legal health record. It is not the complete legal health record.[facility]
--- OUTSIDE RECORDS SUMMARY | 2025-11-11 16:01 | XMS_ITS | Encounter Summary ---
Author Organization [facility] Address [address] [place] [address] Phone Care Team Providers Care Aws Consultant Name Role Phone Salvador Alanis DO Primary Care Provider Reason for Referral * MRI/CAT Scan - Closed Specialty Diagnoses / Procedures Referred By Tara pruett Referred To Contact Radiology Diagnoses Interstitial lung disease Procedures CT Chest Salvador Alanis DO [address] [place] [address] Phone: tel: fax: [email or web address] Referral ID Status Reason Start Date Expiration Date Visits Re quested Visits Authorized [id number] Closed 02/13/2025 12/16/2025 1 1 Encounter Details Date Type Department Care Team (Late st Contact Info) Description 02/13/2025 Transcribe Orders Virtual Department 30 [place] [address] Salvador Alanis DO [address] [place] [address] [email or web address] Interstitial lung disease (Primary Dx) Social History Tobacco Use Types [...] 12/30/2025 1:00 PM EST Office Visit [facility] [address] [facility] 3rd Floor, [address] [place] [address] Cj Foreman MD 22 [facility], [address] [place] [address] [email or web address] documented as of this encounter Results * CT CHEST (HIGH RESOLUTION) WITHOUT CONTRAST (02/21/2025 4:30 PM EDT) Anatomical Region Laterality Modality Chest Computed Tomogra phy 02/25/2025 9:55 AM EDT Impressions 02/25/2025 10:00 AM EDT 1. No evidence of interstitial lung disease. 2. Several bilateral pulmonary nodules measuring up to 4 mm. If this individual is considered high risk for primary lung malignancy, a follow-up low-dose chest CT in 12 months can be considered. 3. Aneurysmal dilatation of the ascending aorta. Narrative 02/25/2025 10:[address] CHEST (HIGH RESOLUTION) WITHOUT CONTRAST Referring clinician's provided indication for this examination in [facility]: * Interstitial lung disease; Outside Radiology Order TECHNIQUE: Multidetector CT of the chest was performed without intravenous contrast using tailored dose modulation techniques. Thin inspiratory, expiratory and inspiratory prone images were obtained as part of a high-resolution chest CT protocol. COMPARISON: None available. FINDINGS: Devices/Tubes/Lines: None. Lungs: No subpleural reticulation, traction bronchiectasis, or honeycombing. Minimal biapical pleural-parenchymal scarring. There are several bilateral pulmonary nodules measuring up to 4 mm including a 4 mm left upper lobe nodule (6:129), 3 mm right upper lobe nodule (6:129), and 4 mm lingular nodule (6:235). The central airways are clear. Prone imaging shows no posterior reticulation or ground glass opacity. Expiratory imaging shows no significant air trapping. Pleura: Normal. No pleural effusion or pneumothorax. Mediastinum: No pericardial effusion. Status post aortic valve replacement. Aneurysmal dilatation of the ascending aorta measuring 4.8 cm. Coronary artery calcification status post CABG. Small hiatus hernia. Lymph Nodes: No enlarged supraclavicular, axillary, or mediastinal lymph nodes by CT size criteria. Upper Abdomen: Vascular calcifications. Absence of intravenous contrast limits sensitivity for detecting solid organ findings. Chest Wall: No suspicious chest wall mass. Limited evaluation of breast parenchyma by CT. Bones: No destructive osseous lesions. Status post median sternotomy. Degenerative changes are in the imaged spine. Healed left rib fracture deformities. Procedure Note Laila Butt MD - 02/25/2025 CT CHEST (HIGH RESOLUTION) WITHOUT CONTRAST Referring clinician's provided indication for this examination in Epic: *Interstitial lung disease; Outside Radiology Order TECHNIQUE: Multidetector CT of the chest was performed without intravenouscontrast using tailored dose modulation techniques. Thin inspiratory,expiratory and inspiratory prone images were obtained as part [facility]. COMPARISON: None available. FINDINGS: Devices/Tubes/Lines: None. Lungs: No subpleural reticulation, traction bronchiectasis, orhoneycombing. Minimal biapical pleural-parenchymal scarring. There areseveral bilateral pulmonary nodules measuring up to 4 mm including a 4 mmleft upper lobe nodule (6:129), 3 mm right upper lobe nodule (6:129), and4 mm lingular nodule (6:235). The central airways are clear. Prone imagingshows no posterior reticulation or ground glass opacity. Expiratoryimaging shows no significant air trapping. Pleura: Normal. No pleural effusion or pneumothorax. Mediastinum: No pericardial effusion. Status post aortic valvereplacement. Aneurysmal dilatation of the ascending aorta measuring 4.8cm. Coronary artery calcification status post CABG. Small hiatus hernia. Lymph Nodes: No enlarged supraclavicular, axillary, or mediastinal lymphnodes by CT size criteria. Upper Abdomen: Vascular calcifications. Absence of intravenous contrastlimits sensitivity for detecting solid organ findings. Chest Wall: No suspicious chest wall mass. Limited evaluation of breastparenchyma by CT. Bones: No destructive osseous lesions. Status post median sternotomy.Degenerative changes are in the imaged spine. Healed left rib fracturedeformities. IMPRESSION: 1. No evidence of interstitial lung disease. 2. Several bilateral pulmonary nodules measuring up to 4 mm. If thisindividual is considered high risk for primary lung malignancy, afollow-up low-dose chest CT in 12 months can be considered. 3. Aneurysmal dilatation of the ascending aorta. us Salvador Alanis DO IM CT CHEST Final Result documented in this encounter Visit Diagnoses Diagnosis Interstitial lung disease- Primary Postinflammatory pulmonary fibrosis Interstitial lung disease Postinflammatory pulmonary fibrosis documented in this encounter Care Teams Aws Consultant Relationship Specialty Start Date End Date Salvador Alanis DO [email or web address] PCP - General 09/01/17 documented as of this encounter Additional Source Comments The information contained in this document represents components of the legal health record. It is not the complete legal health record.[facility]
--- OUTSIDE RECORDS SUMMARY | 2025-11-11 16:01 | XMS_ITS | Encounter Summary ---
Author Organization [facility] Address [address] [facility] [address] [place] [address] Phone Care Team Providers Care Cotton Jammer Name Role Phone Salvador Alanis DO Primary Care Provider [phone] Encounter Details Date Type Department Care Team (Late st Contact Info) Description 05/07/2024 Procedure Pass [facility] [address] [place] [address] Social History Tobacco Use Types Packs/Day Years [...] Description 12/30/2025 1:00 PM EST Office Visit [facility] [address] [place] [address] 3rd Floor, [address] [place] [address] Cj Foreman MD [address] [place] [address], [address] [address] documented as of this encounter Visit Diagnoses Not on filedocumented in this encounter Care Teams Cotton Jammer Relationship Specialty Start Date End Date Salvador Alanis DO [email or web address] PCP - General 09/01/17 documented as of this encounter Additional Source Comments The information contained in this document represents components of the legal health record. It is not the complete legal health record.[facility]
--- OUTSIDE RECORDS SUMMARY | 2025-11-11 16:01 | XMS_ITS | Encounter Summary ---
Author Organization [facility] Address [address] [facility] [address] [place] [address] Phone Care Team Providers Care Forecast Analyst Name Role Phone Salvador Alanis DO Primary Care Provider [phone] Encounter Details Date Type Department Care Team (Late st Contact Info) Description 08/23/2019 Ancillary Orders [facility] Department [address] [place] [address] Salvador Alanis DO [address] [facility] [place] [address] [place] [address] [email or web address] Breast screening Social History Tobacco Use Types [...] Description 12/30/2025 1:00 PM EST Office Visit [facility] [address] [facility] 3rd Floor, [address] [place] [address] Cj Foreman MD [address] [facility], [address] [place] [address] documented as of this encounter Results * BI MAMMOGRAM SCREENING WITH TOMOSYNTHESIS WITH CAD (BILATERAL) (08/31/2019 12:28 PM EDT) Anatomical Region Laterality Modality Breast Left, Breast Right, Breast Bilateral Bila teral Mammography 08/31/2019 5:38 PM EDT Impressions 08/31/2019 5:43 PM EDT BILATERAL BREASTS: Negative, no evidence of malignancy. Normal interval follow- up is recommended in 12 months. Bi-RADS: BI-RADS CATEGORY: 1 - Negative. DENSITY: The breast tissue is heterogeneously dense, an appearance which lowers the sensitivity of mammography. POS - [id number] Narrative 08/31/2019 5:43 PM EDT STUDY: Bilateral screening mammography with tomosynthesis and CAD TECHNIQUE: Bilateral full-field digital screening mammography is obtained and read in conjunction with computer-aided detection. Tomosynthesis as well as 2-D C view imaging were obtained. COMPARISON: Comparison made to multiple prior, most recent August 14, 2018, and most remote March 22, 2013. BREAST COMPOSITION: The breasts are heterogeneously dense, which may obscure small masses. BILATERAL BREASTS: No significant masses, calcifications or other abnormalities are seen. Procedure Note Anne-Marie Capps MD - 08/31/2019 STUDY: Bilateral screening mammography with tomosynthesis and CAD TECHNIQUE: Bilateral full-field digital screening mammography is obtainedand read in conjunction with computer-aided detection. Tomosynthesis aswell as 2-D C view imaging were obtained. COMPARISON: Comparison made to multiple prior, most recent August, and most remote March 22, 2013. BREAST COMPOSITION: The breasts are heterogeneously dense, which mayobscure small masses. BILATERAL BREASTS: No significant masses, calcifications or otherabnormalities are seen. IMPRESSION: BILATERAL BREASTS: Negative, no evidence of malignancy. Normal intervalfollow-up is recommended in 12 months. Bi-RADS: BI-RADS CATEGORY: 1 - Negative. DENSITY: The breast tissue is heterogeneously dense, an appearance whichlowers the sensitivity of mammography. POS - [id number] Salvador Jack Annabelle AGUILAR IMG MG EXAMS Final Result documented in this encounter Visit Diagnoses Diagnosis Breast screening Breast screening, unspecified Breast screening Breast screening, unspecified documented in this encounter Care Teams Forecast Analyst Relationship Specialty Start Date End Date Salvador Alanis DO PCP - General 09/01/17 documented as of this encounter Additional Source Comments The information contained in this document represents components of the legal health record. It is not the complete legal health record.[facility]
--- OUTSIDE RECORDS SUMMARY | 2025-11-11 16:01 | XMS_ITS | Encounter Summary ---
Author Organization [facility] Address [address] [facility] [address] [place] [address] Phone Care Team Providers Care Editor Continuity And Script Name Role Phone Salvador Alanis DO Primary Care Provider [phone] Encounter Details Date Type Department Care Team (Late st Contact Info) Description 02/13/2025 Procedure Pass [facility], Ct Scan - [address] [address] Social History Tobacco Use Types Packs/Day Years [...] Description 12/30/2025 1:00 PM EST Office Visit [facility] [address] [place] [address] 3rd Floor, [address] [place] [address] Cj Foreman MD [address] [place] [address], [address] [address] [email or web address] documented as of this encounter Visit Diagnoses Not on filedocumented in this encounter Care Teams Editor Continuity And Script Relationship Specialty Start Date End Date Salvador Alanis DO [phone] (work) [email or web address] PCP - General 09/01/17 documented as of this encounter Additional Source Comments The information contained in this document represents components of the legal health record. It is not the complete legal health record.[facility]
--- OUTSIDE RECORDS SUMMARY | 2025-11-11 16:01 | XMS_ITS | Encounter Summary ---
Author Organization [facility] Address [address] [facility] [address] [place] [address] Phone Care Team Providers Care Back Shoe Operator Name Role Phone Salvador Alanis DO Primary Care Provider [phone] Encounter Details Date Type Department Care Team (Late st Contact Info) Description 02/13/2025 Transcribe Orders Virtual Department 30 [place] [address] Salvador Alanis DO [address] [place] [address] [email or web address] Dysphagia, unspecified type (Primary Dx) Social History Tobacco Use Types [...] Description 12/30/2025 1:00 PM EST Office Visit [facility] [address] [place] [address] 3rd Floor, [address] [place] [address] Cj Foreman MD [address] [facility], [address] [place] [address] documented as of this encounter Results * FL (Speech) Video Swallow Study (03/06/2025 12:48 PM EDT) Anatomical Region Laterality Modality Radio Fluoroscop y 03/06/2025 12:5 5 PM EDT Impressions 03/06/2025 4:33 PM EDT No connie aspiration was observed during this examination. Please refer to the clinical notes by the Speech Pathologist for detailed description of the Modified Swallow findings. FLUOROSCOPY TIME: 1 minute 47 seconds NUMBER OF IMAGES: [id number] The examination was performed by RRASánchez. Dr. Jenn Reece was immediately available for portions of the procedure as needed. ATTESTATION: I, Jenn Reece as teaching physician, have reviewed the images for this case and if necessary edited the report originally created by Sánchez Brody. Narrative 03/06/2025 4:33 PM EDT FL MODIFIED BARIUM SWALLOW HISTORY:Dysphagia. COMPARISON:CT chest 02/21/2025. TECHNIQUE: Fluoroscopic assistance was provided for the speech pathologist during video swallow. The patient was observed in the lateral projection while being fed various consistencies of barium (thin liquids, pudding and cracker). FINDINGS: The oral and pharyngeal stages of swallowing will be reported separately by the Department of Speech and Language Pathology. No connie aspiration demonstrated with all trialed barium consistencies. There was an episode of laryngeal penetration with thin liquids. No significant pharyngeal residue, nasopharyngeal reflux or cricopharyngeal achalasia visualized fluoroscopically. Large ventral osteophytes are visualized at C3-6. Procedure Note Jenn Reece MD - 03/06/2025 FL MODIFIED BARIUM SWALLOW HISTORY:Dysphagia. COMPARISON:CT chest 02/21/2025. TECHNIQUE: Fluoroscopic assistance was provided for the speech pathologist duringvideo swallow. The patient was observed in the lateral projection whilebeing fed various consistencies of barium (thin liquids, pudding andcracker). FINDINGS: The oral and pharyngeal stages of swallowing will be reported separatelyby the Department of Speech and Language Pathology. No connie aspiration demonstrated with all trialed barium consistencies.There was an episode of laryngeal penetration with thin liquids. Nosignificant pharyngeal residue, nasopharyngeal reflux or cricopharyngealachalasia visualized fluoroscopically. Large ventral osteophytes arevisualized at C3-6. IMPRESSION: No connie aspiration was observed during this examination. Please refer to the clinical notes by the Speech Pathologist for detaileddescription of the Modified Swallow findings. FLUOROSCOPY TIME: 1 minute 47 seconds NUMBER OF IMAGES: [id number] The examination was performed by Sánchez LEONARDO. Dr. Jenn Reece wasimmediately available for portions of the procedure as needed. ATTESTATION: I, Jenn Reece as teaching physician, have reviewed theimages for this case and if necessary edited the report originally createdby Sánchez Brody. us Salvador Alanis DO IMG FL EXAMS Final Result documented in this encounter Visit Diagnoses Diagnosis Dysphagia, unspecified type- Primary Dysphagia, unspecified type documented in this encounter Care Teams Back Shoe Operator Relationship Specialty Start Date End Date Salvador Alanis DO [email or web address] PCP - General 09/01/17 documented as of this encounter Additional Source Comments The information contained in this document represents components of the legal health record. It is not the complete legal health record.[facility]
--- OUTSIDE RECORDS SUMMARY | 2025-11-11 16:02 | XMS_ITS | Encounter Summary ---
Author Organization [facility] Address [address] [place] [address] [place] [address] Phone Care Team Providers Care Screen Making Supervisor Name Role Phone Salvador Alanis DO Primary Care Provider [phone] Encounter Details Date Type Department Care Team (Late st Contact Info) Description 10/13/2017 Transcribe Orders [address] [address] Nakul Álvarez MD [email or web address] Pain of lower extremity, unspecified laterality (Primary Dx) Social History Tobacco Use Types Packs/Day Years Used Date Smoking Tobacco: Never Smokeless Tobacco: Never Alcohol Use Standard Drinks/Week Comments No 0 (1 standard drink = 0.6 oz pur e alcohol) Comments Unknown Sex and Gender Information Value Date Recorded [...] 12/30/2025 1:00 PM EST Office Visit [facility] [address] [place] [address] 3rd Floor, [address] [place], [place] [phone] Cj Foreman MD [address] [facility], [address] [place] [id number] [email or web address] documented as of this encounter Results * (ABNORMAL) Urinalysis with sediment (10/13/2017 10:47 AM EST) WBC 0-4(A) NONE SEEN /hpf [facility] RBC 0-2(A) NONE SEEN /hpf [facility] URINE EPITHELIAL 0-4(A) NONE SEEN [facility] MUCUS Trace(A) NONE SEEN /hpf [facility] BACTERIA NONE SEEN NONE SEEN [facility] COLOR Yellow Yellow [facility] CLARITY Clear [facility] GLUCOSE Negative Negative [facility] BILI Negative Negative [facility] KETONES Negative Negative [facility] SPECIFIC GRAVITY <1.005 1.005 - 1.030 [facility] BLOOD 1+(A) Negative [facility] PH 5.5 5.0 - 8.0 [facility] Protein-UA Negative Negative [facility] NITRITE Negative Negative [facility] Leukocyte esterase, ur Negative Negative [facility] Urine (Urine) 10/13/2017 10: 47 AM EST 10/13/2017 12:50 PM EST Nakul Álvarez MD LAB URINE ORDERABLES Final Result [address] [address] * Amylase (10/13/2017 10:47 AM EST) AMYLASE 53 28 - 100 U/L [facility] Blood 10/13/2017 10:4 7 AM EST 10/13/2017 12:49 PM EST Nakul Álvarez MD LAB BLOOD BKR ORDERABLES Fi nal Result Performing Organization Address City/[facility]/ZIP Co de Phone Number [address] [address] documented in this encounter Visit Diagnoses Diagnosis Pain of lower extremity, unspecified laterality- Primary documented in this encounter Care Teams Screen Making Supervisor Relationship Specialty Start Date End Date Salvador Alanis DO PCP - General 09/01/17 documented as of this encounter Additional Source Comments The information contained in this document represents components of the legal health record. It is not the complete legal health record.[facility]
--- OUTSIDE RECORDS SUMMARY | 2025-11-11 16:02 | XMS_ITS | Encounter Summary ---
Author Organization [facility] Address [address] [facility] [address] [place] [address] Phone Care Team Providers Care Foreign Car Mechanic Name Role Phone Salvador Alanis DO Primary Care Provider [phone] Encounter Details Date Type Department Care Team (Late st Contact Info) Description 04/25/2024 Procedure Pass [facility] [address] [place] [address] Social History Tobacco Use Types Packs/Day Years [...] 12/30/2025 1:00 PM EST Office Visit [facility] [address] [place] [address] 3rd Floor, [address] [place] [address] Cj Foreman MD [address] [place] [address], [address] [address] documented as of this encounter Visit Diagnoses Not on filedocumented in this encounter Care Teams Foreign Car Mechanic Relationship Specialty Start Date End Date Salvador Alanis DO PCP - General 09/01/17 documented as of this encounter Additional Source Comments The information contained in this document represents components of the legal health record. It is not the complete legal health record.[facility]
--- OUTSIDE RECORDS SUMMARY | 2025-11-11 16:02 | XMS_ITS | Encounter Summary ---
Author Organization [facility] Address [address] [place] [address] [place] [address] Phone Care Team Providers Care Microsoft Bi Architect Name Role Phone Salvador Alanis DO Primary Care Provider [phone] Encounter Details Date Type Department Care Team (Late st Contact Info) Description 09/26/2020 Procedure Pass [facility], [address] [address] Social History Tobacco Use Types Packs/Day Years [...] Description 12/30/2025 1:00 PM EST Office Visit [facility] [address] [place] [address] 3rd Floor, [address] [place] [address] Cj Foreman MD [address] [facility], [address] [address] [email or web address] documented as of this encounter Visit Diagnoses Not on filedocumented in this encounter Care Teams Microsoft Bi Architect Relationship Specialty Start Date End Date Salvador Alanis DO [email or web address] PCP - General 09/01/17 documented as of this encounter Additional Source Comments The information contained in this document represents components of the legal health record. It is not the complete legal health record.[facility]
--- OUTSIDE RECORDS SUMMARY | 2025-11-11 16:02 | XMS_ITS | Encounter Summary ---
Author Organization [facility] Address [address] [facility] [address] [place] [address] Phone Care Team Providers Care Events Intern Name Role Phone Salvador Alanis DO Primary Care Provider [phone] Encounter Details Date Type Department Care Team (Late st Contact Info) Description 02/13/2018 Ancillary Orders Virtual Department [address] [place] [address] Daija Colmenares CNP [address] [place] [address] [email or web address] Pleurodynia; Contusion of left orbital tissues, initial encounter Social History Tobacco Use Types Packs/Day Years [...] Description 12/30/2025 1:00 PM EST Office Visit [facility] [address] [facility] 3rd Floor, [address] [place] [address] Cj Foreman MD [address] [facility], [address] [place] [address] [email or web address] documented as of this encounter Results * XR Orbits Series (02/13/2018 5:01 PM EDT) Anatomical Region Laterality Modality Face Radiographic Madina ging 02/13/2018 5:01 PM EDT Impressions 02/13/2018 5:06 PM EDT No acute fracture. POS - [id number] Narrative 02/13/2018 5:06 PM EDT HISTORY: As above. COMPARISON: CT head 03/07/2013. ORBIT RADIOGRAPH FINDINGS: 6 views obtained. No fracture or malalignment. Paranasal sinuses are clear. Mastoids are clear. No acute soft tissue findings. Procedure Note Lisset Cervantes MD - 02/13/2018 HISTORY: As above. COMPARISON: CT head 03/07/2013. ORBIT RADIOGRAPH FINDINGS: 6 views obtained. No fracture or malalignment. Paranasal sinuses areclear. Mastoids are clear. No acute soft tissue findings. IMPRESSION: No acute fracture. POS - [id number] Daija Colmenares BINDING END STITCHER IMG XR HEAD AND SHUNT SERIE S Final Result * XR RIBS 2 VIEWS (LEFT) (02/13/2018 5:01 PM EDT) Anatomical Region Laterality Modality Chest Radiographic Madina ging 02/13/2018 5:06 PM EDT Impressions 02/13/2018 5:09 PM EDT No acute fracture. POS - [id number] Narrative 02/13/2018 5:09 PM EDT HISTORY: As above. COMPARISON: Left rib x-rays 06/08/2016. LEFT RIB RADIOGRAPH FINDINGS: 4 views obtained. No acute fracture or malalignment. Chronic left anterior sixth rib fracture. No destructive bone lesions. Again noted are mediastinal wires and aortic valve prosthesis. No acute soft tissue findings. Imaged left lung is clear. Procedure Note Lisset Cervantes MD - 02/13/2018 HISTORY: As above. COMPARISON: Left rib x-rays 06/08/2016. LEFT RIB RADIOGRAPH FINDINGS: 4 views obtained. No acute fracture or malalignment. Chronic leftanterior sixth rib fracture. No destructive bone lesions. Again notedare mediastinal wires and aortic valve prosthesis. No acute soft tissuefindings. Imaged left lung is clear. IMPRESSION: No acute fracture. POS - [id number] us Daija Colmenares BINDING END STITCHER IMG XR CHEST Final Resul t documented in this encounter Visit Diagnoses Diagnosis Pleurodynia Painful respiration Contusion of left orbital tissues, initial encounter Contusion of left orbital tissues, initial encounter Pleurodynia Painful respiration documented in this encounter Care Teams Events Intern Relationship Specialty Start Date End Date Salvador Alanis DO [email or web address] PCP - General 09/01/17 documented as of this encounter Additional Source Comments The information contained in this document represents components of the legal health record. It is not the complete legal health record.[facility]
--- OUTSIDE RECORDS SUMMARY | 2025-11-11 16:02 | XMS_ITS | Encounter Summary ---
Author Organization [facility] Address [address] [place] [address] Phone Care Team Providers Care Delinquent Tax Collector Assistant Name Role Phone Salvador Alanis DO Primary Care Provider [phone] Reason for Referral * Outpatient Procedure - Closed Specialty Diagnoses / Procedures Referred By Tara pruett Referred To Contact Radiology Diagnoses Nonrheumatic aortic (valve) stenosis Procedures Adult Echo TTE Salvador Alanis DO Phone: tel: fax: [email or web address] Referral ID Status Reason Start Date Expiration Date Visits Re quested Visits Authorized [id number] Closed 05/07/2024 05/07/2025 1 1 Encounter Details Date Type Department Care Team (Late st Contact Info) Description 05/07/2024 Transcribe Orders Virtual Department 30 [place] [address] Salvador Alanis DO [address] [facility] [place] [address] [email or web address] Nonrheumatic aortic (valve) stenosis (Primary Dx) Social History Tobacco Use Types [...] Description 12/30/2025 1:00 PM EST Office Visit [facility] [address] [facility] 3rd Floor, [address] [place] [address] Cj Foreman MD 22 [facility], [address] [place] [address] [email or web address] documented as of this encounter Results * TTE COMPREHENSIVE (05/11/2024 9:25 AM EDT) Body Surface Area 1.76 m2 Height 160 cm Weight 73 kg Systolic BP 118 mmHg Diastolic BP 64 mmHg Interventricular Septum Thickness 12 6 - 11 mm Left Ventricle Internal Diameter End Diastole 37 37 - 52 mm Left Ventricle Internal Diameter End Systole 27 <35 mm Left Ventricular Outflow Tract Diameter 19.0 mm LVOT VTI REST 161.0 mm Left Ventricular Outflow Tract Velocity 0.7 m/s Left Ventricular Outflow Tract Gradient at Rest 2 mmHg Left Ventricular Posterior Wall Thickness 8 6 - 11 mm Ejection Fraction 64 50 - 75 Percent Left Atrium Dimension Anterior-Posterior 32 15 - 40 mm Aortic Valve Mean Gradient 15 mmHg Aortic Valve Time Velocity Integral 558.0 mm Aortic Valve Peak Velocity 268.0 cm/s Aortic Valve Peak Gradient 29 mmHg Aortic Sinus Diameter 31 <40 mm Ascending Aorta Diameter 47 <36 mm Inferior Vena Cava Diameter 18 <21 mm Mitral Valve A Wave Speed 80.8 cm/s Mitral Valve E Wave Speed 103.0 cm/s Right Ventricle Basal Diameter 42 25 - 41 mm Tricuspid Valve Peak Velocity 2.7 m/s Raw LV EF% 47 % Relative Wall Thickness 0.43 0.22 - 0.42 Aortic Valve Prosthetic Peak Gradient 29 mmHg Aortic Valve Prosthetic Mean Gradient 15 mmHg Aortic Valve Sinus Index by BSA 18 mm/m2 Aorta Sinus Index by Height 1.94 cm/m Aorta Sinus CSA index by Height 4.71 cm2/m Ascending Aorta Index 27 mm/m2 Asc Aorta CSA Index by Height 10.84 cm2/m Right Ventricle to Right Atrium Pressure Gradient 29 mmHg Right Ventricle Peak Systolic Pressure (Assuming RAP 10) 39 mmHg RVSP (Exclusive of RAP) 29 mmHg MGB CV ECHO TV RVSP (ASSUMING RAP OF 5) 34 mmHg Ascending Aorta Index 27 mm Aortic Sinus Index 18 mm Ascending Aorta Diameter 27 mm Aortic Valve Sinus Index 1 18 19 - 27 mm AO ASC DIAM BSA INDEX 26.70 Left Atrial Volume Index 31 16 - 34 mL/m2 Right Ventricle Peak Systolic Pressure 32 mmHg Left Ventricle Ea Lateral Wave Speed 10.2 cm/s Right Ventricle TAPSE 20 >=17 mm MV E/E' Tissue Velocity Lateral 10.10 Right Ventricle Pulse Doppler S Wave 8.5 >=9.5 cm/s Aortic Valve Peak Velocity 268.0 m/s Left Ventricle E Wave Speed 103.0 cm/s Left Ventricle A Wave Speed 80.8 cm/s MV E/A ratio 1.3 Left Ventricle Ea Septal Wave Speed 5.0 cm/s MV E/e' septal 20.60 Left Ventricle E/e' Average 15.3 Left Atrial Volume 55 mL Left Atrial Volume Index by Height 34 mL/m Right Atrium Area 15 cm2 Right Atrium Area index 9 cm2/m2 Right Atrium Pressure Estimated 3 mmHg Echo E/Ea 20.60 Anatomical Region Laterality Modality Heart Ultrasound Narrative 05/11/2024 10:14 AM EDT 1. This patient was imagers normal sinus rhythm. The estimated ejection fraction is normal at 65%. Left ventricular thickness is normal there are no regional wall motion abnormalities. The diastolic function on the study is determinate. 2. Normal RV size and function. 3. There is a bioprosthetic aortic valve in place which is well-seated. The peak gradient is 29 mmHg mean gradient is 15 mmHg, the ascending aortic root is moderately dilated at 47 mm. 4. Mild mitral and mild to moderate tricuspid insufficiency, the PA pressure is 30 to 35 mmHg. 5. Normal pericardium and when compared to a prior echocardiogram done in April 2023, there is no significant change. Left Ventricle The left ventricle is normal in size. There is discrete upper septal hypertrophy. There is normal left ventricular systolic function. The LV ejection fraction is 64% (calculated via biplane measurement). There are no wall motion abnormalities. LV diastolic function parameters are indeterminate in total. The E/A ratio is 1.3. The e' septal wave velocity is 5.0 cm/s. The e' lateral wave velocity is 10.2 cm/s. The average E/e' ratio is 15.3. Right Ventricle The right ventricle is normal in size. The RV basal dimension is 42 mm. There is normal right ventricular systolic function. TAPSE is 20 mm. RV S' wave is 8.5 cm/s. Left Atrium The left atrium is normal in size. The left atrial volume is 55 mL. There are normal flow patterns in the pulmonary vein. Right Atrium The right atrial area is 15 cm2. The IVC is normal in size with normal inspiratory collapse. This is consistent with normal RA pressure. The IVC diameter is 18 mm (normal <= 21 mm). Hepatic veins are normal in size. Mitral Valve There is mitral annular calcification. There is no mitral stenosis. There is mild mitral regurgitation. Tricuspid Valve The tricuspid valve appears normal. There is no tricuspid stenosis. There is mild to moderate tricuspid regurgitation with a centrally directed jet. The RV systolic pressure was calculated at 32 mmHg (using TR peak velocity of 2.7 m/s and assuming an RA pressure of 3 mmHg). Aortic Valve There is a bioprosthetic aortic valve, which is well-seated. The aortic valve peak prosthetic velocity is 268.0 m/s. The aortic valve peak and mean prosthetic gradients are 29 mmHg and 15 mmHg respectively. There is no aortic stenosis. There is no aortic regurgitation. The ascending aorta is moderately dilated. The ascending aortic diameter is 47 mm. Pulmonic Valve The pulmonic valve appears normal. There is trace to mild pulmonic regurgitation. Pericardium There is no pericardial effusion. There are no pleural effusions. General Findings The image quality was good (2). Technique(s) used in the evaluation: Color flow Doppler and Spectral Doppler. The predominant rhythm during the study was sinus. Comparison Findings Compared to prior report on 04/18/2023, IAS/IVS The interatrial septum appears normal. A patent foramen ovale (PFO) cannot be confirmed or excluded. There is normal septal structure. There is no evidence of a ventricular septal defect. us Salvador Alanis DO CV ECHO ORDERABLES Final Result documented in this encounter Visit Diagnoses Diagnosis Nonrheumatic aortic (valve) stenosis- Primary Nonrheumatic aortic (valve) stenosis documented in this encounter Care Teams Delinquent Tax Collector Assistant Relationship Specialty Start Date End Date Salvador Alanis DO [email or web address] PCP - General 09/01/17 documented as of this encounter Additional Source Comments The information contained in this document represents components of the legal health record. It is not the complete legal health record.[facility]
--- OUTSIDE RECORDS SUMMARY | 2025-11-11 16:02 | XMS_ITS | Encounter Summary ---
Author Organization [facility] Address [address] [place] [address] Phone Care Team Providers Care Powder Coat Painter Name Role Phone Salvador Alanis DO Primary Care Provider [phone] Encounter Details Date Type Department Care Team (Late Contact Info) Description 02/13/2018 Ancillary Orders Virtual Department [address] [place] [address] Daija Colmenares CERTIFIED NUTRITIONIST [address] [place] [address] Pleurodynia Social History Tobacco Use Types Packs/Day Years [...] Description 12/30/2025 1:00 PM EST Office Visit [facility] [address] [facility] 3rd Floor, [address] [place] [address] Cj Foreman MD 22 [facility], [address] [place] [address] documented as of this encounter Results * XR RIBS 2 VIEWS (RIGHT) (02/13/2018 5:00 PM EDT) Anatomical Region Laterality Modality Chest Radiographic Madina ging 02/13/2018 5:03 PM EDT Impressions 02/13/2018 5:06 PM EDT No acute fracture. POS - [id number] Narrative 02/13/2018 5:06 PM EDT HISTORY: As above. COMPARISON: Chest CT 10/29/2016. RIGHT RIB RADIOGRAPH FINDINGS: 4 views obtained. No acute fracture or malalignment. No destructive bone lesions. Again noted are median sternotomy changes and aortic valve prosthesis. Stable multilevel thoracic lumbar spine endplate spurring. Imaged right lung is clear. No acute soft tissue findings. Procedure Note Lisset Cervantes MD - 02/13/2018 HISTORY: As above. COMPARISON: Chest CT 10/29/2016. RIGHT RIB RADIOGRAPH FINDINGS: 4 views obtained. No acute fracture or malalignment. No destructive bonelesions. Again noted are median sternotomy changes and aortic valveprosthesis. Stable multilevel thoracic lumbar spine endplate spurring.Imaged right lung is clear. No acute soft tissue findings. IMPRESSION: No acute fracture. POS - [id number] Daija Colmenares CERTIFIED NUTRITIONIST IMG XR CHEST Final Resul t documented in this encounter Visit Diagnoses Diagnosis Pleurodynia Painful respiration Pleurodynia Painful respiration documented in this encounter Care Teams Powder Coat Painter Relationship Specialty Start Date End Date Salvador Alanis DO PCP - General 09/01/17 documented as of this encounter Additional Source Comments The information contained in this document represents components of the legal health record. It is not the complete legal health record.[facility]
--- OUTSIDE RECORDS SUMMARY | 2025-11-11 16:02 | XMS_ITS | Encounter Summary ---
Author Organization [facility] Address [address] [place] [address] [place] [phone] Phone Care Team Providers Care Histology Assistant Name Role Phone Salvador Alanis DO Primary Care Provider [phone] Reason for Referral * MRI/CAT Scan - Closed Specialty Diagnoses / Procedures Referred By Tara pruett Referred To Contact Radiology Diagnoses Left upper quadrant pain Procedures CT Abdomen/Pelvis Nakul Álvarez MD [email or web address] Referral ID Status Reason Start Date Expiration Date Visits Re quested Visits Authorized [id number] Closed 09/10/2017 09/10/2018 1 1 Encounter Details Date Type Department Care Team (Late st Contact Info) Description 09/10/2017 Ancillary Orders Virtual Department [address] [place] [address] Nakul Álvarez MD [email or web address] Left upper quadrant pain Social History Tobacco Use Types Packs/Day Years Used Date Smoking Tobacco: Never Assessed Comments Unknown Sex and Gender Information Value Date Recorded Sex Assigned at Female 03/10/2018 11:16 AM EDT Legal Sex Female 10:10 PM EDT Gender Identity Female 03/10/2018 11:16 AM EDT Sexual Orientation Straight 03/10/2018 11 :16 AM EDT documented as of this encounter Plan of Treatment Upcoming Encounters Date Type Department Care Team (Late Contact Info) Description 12/30/2025 1:00 PM EST Office Visit [facility] [address] [place] [address] 3rd Floor, [address] [place] [address] Cj Foreman MD 22 [facility], [address] [place] [address] [email or web address] documented as of this encounter Results * CT ABDOMEN/PELVIS WITH CONTRAST (09/19/2017 12:05 PM EST) Anatomical Region Laterality Modality Abdomen, Pelvis Computed Tomogra phy 09/19/2017 11:5 8 AM EST Impressions 09/19/2017 12:[address] evaluation of the abdomen and pelvis. No explanation for left upper quadrant pain is seen. No explanation for weight loss or decreased appetite is noted. TOTAL CTDIvol: 7.30 mGy S/S: Left upper quadrant pain intermittent x2 years, weight loss, decreased appetite POS - [id number] Narrative 09/19/2017 12:13 PM EST COMPARISON: CT abdomen 01/26/2016 TECHNIQUE: After the administration of oral and intravenous contrast, multidetector CT is obtained from dome of the liver through the inferior pubic rami. Multiplanar reformatted images generated. Automated exposure control utilized. FINDINGS: There is minor bibasilar volume loss. No acute infiltration is seen. No significant pleural fluid is evident. The liver is homogeneous. No focal findings of concern are noted. No bile duct dilatation is seen. The spleen is unremarkable. The pancreas is within the range of normal and is unchanged. No adrenal masses are seen. No hydronephrosis or nephrolithiasis is noted. No significant renal parenchymal mass lesion is seen. The urinary bladder is unremarkable. The patient appears to have had a prior hysterectomy. Small non-specific periaortic lymph nodes are present. No pathologic lymphadenopathy is seen. There is sigmoid diverticulosis without diverticulitis. There is a moderate amount of stool the colon without distention or displacement seen. The terminal ileum is unremarkable. There are moderate degenerative changes throughout the thoracolumbar spine. Procedure Note Jean Claude Kwon MD - 09/19/2017 COMPARISON: CT abdomen 01/26/2016 TECHNIQUE: After the administration of oral and intravenous contrast,multidetector CT is obtained from dome of the liver through the inferiorpubic rami. Multiplanar reformatted images generated. Automated exposurecontrol utilized. FINDINGS: There is minor bibasilar volume loss. No acute infiltration is seen. Nosignificant pleural fluid is evident. The liver is homogeneous. No focal findings of concern are noted. No bileduct dilatation is seen. The spleen is unremarkable. The pancreas is within the range of normal and is unchanged. No adrenal masses are seen. No hydronephrosis or nephrolithiasis is noted. No significant renalparenchymal mass lesion is seen. The urinary bladder is unremarkable. The patient appears to have had a prior hysterectomy. Small non-specific periaortic lymph nodes are present. No pathologiclymphadenopathy is seen. There is sigmoid diverticulosis without diverticulitis. There is amoderate amount of stool the colon without distention or displacementseen. The terminal ileum is unremarkable. There are moderate degenerative changes throughout the thoracolumbarspine. IMPRESSION: Unremarkable CT evaluation of the abdomen and pelvis. No explanation forleft upper quadrant pain is seen. No explanation for weight loss ordecreased appetite is noted. TOTAL CTDIvol: 7.30 mGy S/S: Left upper quadrant pain intermittent x2 years, weight loss,decreased appetite POS - [id number] Nakul Álvarez MD IM CT ABD/PELVIS Final Res ult documented in this encounter Visit Diagnoses Diagnosis Left upper quadrant pain Abdominal pain, left upper quadrant Left upper quadrant pain Abdominal pain, left upper quadrant documented in this encounter Care Teams Histology Assistant Relationship Specialty Start Date End Date Salvador Alanis DO [email or web address] PCP - General 09/01/17 documented as of this encounter Additional Source Comments The information contained in this document represents components of the legal health record. It is not the complete legal health record.[facility]
--- OUTSIDE RECORDS SUMMARY | 2025-11-11 16:02 | XMS_ITS | Encounter Summary ---
Author Organization [facility] Address [address] [place] [address] Phone Care Team Providers Care Grievance And Appeals Coordinator Name Role Phone Salvador Alanis DO Primary Care Provider [phone] Encounter Details Date Type Department Care Team (Late st Contact Info) Description 02/20/2018 Ancillary Orders [facility], X-Ray - [address] [address] Daija Colmenares, MOLD MACHINE OPERATOR 12 [place], [place] [id number] [email or web address] Pain of left hand Social History Tobacco Use Types Packs/Day Years [...] EST Office Visit [facility] [address] [facility] 3rd Floor, [address] [place] [address] Cj Foreman MD 22 [facility], [address] [place] [address] documented as of this encounter Results * XR WRIST 3 OR MORE VIEWS (LEFT) (02/20/2018 2:36 PM EDT) Anatomical Region Laterality Modality Wrist Left Radiographic Madina ging 02/20/2018 2:40 PM EDT Impressions 02/20/2018 2:41 PM EDT No acute fracture or bony displacement is seen. S/S: Trauma 1 1/2 weeks ago, pain POS - [id number] Narrative 02/20/2018 2:41 PM EDT COMPARISON: None FINDINGS: 5 views of the left wrist are obtained. The navicular bone appears intact. No acute fracture or bony displacement is evident. There are mild degenerative changes of the base the first minute carpal. Minor triangular fibrocartilage calcification is evident. Procedure Note Jean Claude Kwon MD - 02/20/2018 COMPARISON: None FINDINGS: 5 views of the left wrist are obtained. The navicular bone appears intact. No acute fracture or bony displacement is evident. There are mild degenerative changes of the base the first minute carpal. Minor triangular fibrocartilage calcification is evident. IMPRESSION: No acute fracture or bony displacement is seen. S/S: Trauma 1 1/2 weeks ago, pain POS - [id number] Daija Colmenares MOLD MACHINE OPERATOR IMG XR UPPER EXTREMITY Bhavna l Result * XR HAND 3 OR MORE VIEWS (LEFT) (02/20/2018 2:34 PM EDT) Anatomical Region Laterality Modality Hand Left Radiographic Madina ging 02/20/2018 2:37 PM EDT Impressions 02/20/2018 2:40 PM EDT No acute fracture or bony displacement is seen. Degenerative changes evident particularly in the DIP joints. S/S: Trauma, fall one half weeks ago, lateral posterior hand and wrist pain POS - [id number] Narrative 02/20/2018 2:40 PM EDT COMPARISON: None FINDINGS: 4 views of the left hand are obtained. There is minor diffuse interphalangeal joint space narrowing consistent with mild osteoarthritis particularly the DIP joints. No acute fracture or bony displacement is noted. Procedure Note Jean Claude Kwon MD - 02/20/2018 COMPARISON: None FINDINGS: 4 views of the left hand are obtained. There is minor diffuse interphalangeal joint space narrowing consistentwith mild osteoarthritis particularly the DIP joints. No acute fracture or bony displacement is noted. IMPRESSION: No acute fracture or bony displacement is seen. Degenerative changesevident particularly in the DIP joints. S/S: Trauma, fall one half weeks ago, lateral posterior hand and wristpain POS - [id number] Daija Colmenares MOLD MACHINE OPERATOR IMG XR UPPER EXTREMITY Bhavna l Result documented in this encounter Visit Diagnoses Diagnosis Pain of left hand Pain of left hand Pain of left hand documented in this encounter Care Teams Grievance And Appeals Coordinator Relationship Specialty Start Date End Date Salvador Alanis DO PCP - General 09/01/17 documented as of this encounter Additional Source Comments The information contained in this document represents components of the legal health record. It is not the complete legal health record.[facility]
--- OUTSIDE RECORDS SUMMARY | 2025-11-11 16:02 | XMS_ITS | Encounter Summary ---
Author Organization [facility] Address [address] [place] [address] [place] [address] Phone Care Team Providers Care Grinding Wheel Dresser Name Role Phone Salvador Alanis DO Primary Care Provider [phone] Encounter Details Date Type Department Care Team (Late st Contact Info) Description 08/11/2020 Procedure Pass [facility], [address] [address] Social History Tobacco Use Types Packs/Day Years [...] Description 12/30/2025 1:00 PM EST Office Visit [facility] [address] [place] [address] 3rd Floor, [address] [place] [address] Cj Foreman MD 22 [facility], [address] [address] [email or web address] documented as of this encounter Visit Diagnoses Not on filedocumented in this encounter Care Teams Grinding Wheel Dresser Relationship Specialty Start Date End Date Salvador Alanis DO [email or web address] PCP - General 09/01/17 documented as of this encounter Additional Source Comments The information contained in this document represents components of the legal health record. It is not the complete legal health record.[facility]
--- OUTSIDE RECORDS SUMMARY | 2025-11-11 16:02 | XMS_ITS | Encounter Summary ---
Author Organization [facility] Address [address] [place] [address] Phone Care Team Providers Care Blender/Braze Applicator Name Role Phone Salvador Alanis DO Primary Care Provider [phone] Encounter Details Date Type Department Care Team (Late st Contact Info) Description 09/10/2017 Procedure Pass [facility], Ct Scan - [address] [address] Social History Tobacco Use Types Packs/Day Years [...] Description 12/30/2025 1:00 PM EST Office Visit [facility] [address] [place] [address] [address] [facility], [address] [place] [address] Cj Foreman MD [address] [place] [address] documented as of this encounter Visit Diagnoses Not on filedocumented in this encounter Care Teams Blender/Braze Applicator Relationship Specialty Start Date End Date Salvador Alanis DO PCP - General 09/01/17 documented as of this encounter Additional Source Comments The information contained in this document represents components of the legal health record. It is not the complete legal health record.[facility]
--- OUTSIDE RECORDS SUMMARY | 2025-11-11 16:02 | XMS_ITS | Encounter Summary ---
Author Organization [facility] Address [address] [facility] [address] [place] [address] Phone Care Team Providers Care Fur Puller Name Role Phone Salvador Alanis DO Primary Care Provider [phone] Encounter Details Date Type Department Care Team (Late st Contact Info) Description 09/26/2020 Ancillary Orders Virtual Department [address] [place] [address] Salvador Alanis DO [address] [facility] [place] [address] [place] [address] Abnormal mammogram Social History Tobacco Use Types Packs/Day Years [...] Description 12/30/2025 1:00 PM EST Office Visit [facility] [address] [facility] 3rd Floor, [address] [place] [address] Cj Foreman MD [address] [facility], [address] [place] [address] documented as of this encounter Results * BI US BREAST LIMITED (LEFT) (10/08/2020 11:05 AM EST) Anatomical Region Laterality Modality Breast Left, Breast Bilateral Left Ul trasound 10/08/2020 12:1 4 PM EST Impressions 10/08/2020 12:17 PM EST Small density demonstrated on mammography appears to represent a simple cyst. There is mild grossly symmetric prominence of the retroareolar ducts bilaterally, of doubtful significance in the absence of nipple discharge. In the absence of clinically significant findings routine annual screening mammography would appear adequate for follow-up. The results of this examination and recommendations were reviewed directly with the patient. BI-RADS CATEGORY 2 - BENIGN POS [id number] Narrative 10/08/2020 12:17 PM EST Comparisons made with current mammographic study. At the approximate 3:00 position in the superficial periareolar tissues is a 3 mm sharply circumscribed anechoic structure displaying enhanced through-transmission, correlating fairly well in size and location the mammographic abnormality and consistent with a simple cyst. No solid mass identified in this region. There is mild prominence of the retroareolar ducts which appears similar to the left upon limited left retroareolar evaluation. Procedure Note Oleg Ding MD - 10/08/2020 Comparisons made with current mammographic study. At the approximate 3:00position in the superficial periareolar tissues is a 3 mm sharplycircumscribed anechoic structure displaying enhanced through-transmission,correlating fairly well in size and location the mammographic abnormalityand consistent with a simple cyst. No solid mass identified in thisregion. There is mild prominence of the retroareolar ducts which appearssimilar to the left upon limited left retroareolar evaluation. IMPRESSION: Small density demonstrated on mammography appears to represent a simplecyst. There is mild grossly symmetric prominence of the retroareolar ductsbilaterally, of doubtful significance in the absence of nipple discharge.In the absence of clinically significant findings routine annual screeningmammography would appear adequate for follow-up. The results of this examination and recommendations were reviewed directlywith the patient. BI-RADS CATEGORY 2 - BENIGN POS [id number] us Salvador A Bigda DO IMG US BREAST Final Result * BI MAMMOGRAM DIAGNOSTIC WITH TOMOSYNTHESIS NO CAD (LEFT) (10/08/2020 10:32 AM EST) Anatomical Region Laterality Modality Breast Left Left Mammography 10/08/2020 10:4 0 AM EST Impressions 10/08/2020 11:31 AM EST Focal density demonstrated on recent mammography represents a simple cyst. In the absence of clinically significant findings routine annual screening mammography would appear adequate for follow-up. The results of this examination were discussed directly with the patient. BI-RADS CATEGORY: 2 - Benign finding. DENSITY: The breast tissue is heterogeneously dense, which could obscure a lesion on mammography. LEFT RECOMMENDATION DUE DATE: 12 Months Left Mammography Screening Narrative 10/08/2020 11:31 AM EST Spot compression C-view and tomographic craniocaudal and mediolateral imaging was performed and compared with multiple prior studies, most recently 09/24/2020. The small circumscribed nodular density persists and is located at the approximate 3:00 position this was subsequently assessed on ultrasound and found to represent a cyst in the superficial tissues. Procedure Note Oleg Ding MD - 10/08/2020 Spot compression C-view and tomographic craniocaudal and mediolateralimaging was performed and compared with multiple prior studies, mostrecently 09/24/2020. The small circumscribed nodular density persists andis located at the approximate 3:00 position this was subsequently assessedon ultrasound and found to represent a cyst in the superficial tissues. IMPRESSION: Focal density demonstrated on recent mammography represents a simple cyst.In the absence of clinically significant findings routine annual screeningmammography would appear adequate for follow-up. The results of this examination were discussed directly with thepatient. BI-RADS CATEGORY: 2 - Benign finding. DENSITY: The breast tissue is heterogeneously dense, which could obscurea lesion on mammography. LEFT RECOMMENDATION DUE DATE: 12 Months Left Mammography Screening us Salvador A Bigda DO IMG MG EXAMS Final Result documented in this encounter Visit Diagnoses Diagnosis Abnormal mammogram Abnormal mammogram, unspecified Abnormal mammogram Abnormal mammogram, unspecified Abnormal mammogram Abnormal mammogram, unspecified documented in this encounter Care Teams Fur Puller Relationship Specialty Start Date End Date Salvador Alanis PCP - General 09/01/17 documented as of this encounter Additional Source Comments The information contained in this document represents components of the legal health record. It is not the complete legal health record.[facility]
--- OUTSIDE RECORDS SUMMARY | 2025-11-11 16:02 | XMS_ITS | Encounter Summary ---
Author Organization [facility] Address [address] [place] [address] [place] [address] Phone Care Team Providers Care Assisted Living Nursing Director Name Role Phone Salvador Alanis DO Primary Care Provider [phone] Encounter Details Date Type Department Care Team (Late Contact Info) Description 01/15/2021 Procedure Pass [facility] [address] [place] [address] Social History Tobacco Use Types Packs/Day Years [...] 12/30/2025 1:00 PM EST Office Visit [facility] [address] [place] [address] 3rd Floor, [address] [place] [address] Cj Foreman MD [address] [facility], [address] [place] [address] [email or web address] documented as of this encounter Visit Diagnoses Not on filedocumented in this encounter Care Teams Assisted Living Nursing Director Relationship Specialty Start Date End Date Salvador Alanis DO [email or web address] PCP - General 09/01/17 documented as of this encounter Additional Source Comments The information contained in this document represents components of the legal health record. It is not the complete legal health record.[facility]
--- OUTSIDE RECORDS SUMMARY | 2025-11-11 16:03 | XMS_ITS | Encounter Summary ---
Author Organization [facility] Address [address] [facility] [address] [place] [address] Phone Care Team Providers Care Early Childhood Assistant Name Role Phone Salvador Alanis DO Primary Care Provider [phone] Encounter Details Date Type Department Care Team (Late st Contact Info) Description 01/21/2023 Transcribe Orders Virtual Department [address] [place] [address] Salvador Alanis DO [address] [place] [address] [email or web address] Syncope and collapse (Primary Dx) Social History Tobacco Use Types [...] Description 12/30/2025 1:00 PM EST Office Visit [facility] [address] [facility] 3rd Floor, [address] [place] [address] Cj Foreman MD [address] [facility], [address] [place] [address] [email or web address] documented as of this encounter Visit Diagnoses Diagnosis Syncope and collapse- Primary documented in this encounter Care Teams Early Childhood Assistant Relationship Specialty Start Date End Date Annabelle Salvador DO Jack [email or web address] PCP - General 09/01/17 documented as of this encounter Additional Source Comments The information contained in this document represents components of the legal health record. It is not the complete legal health record.[facility]
--- OUTSIDE RECORDS SUMMARY | 2025-11-11 16:03 | XMS_ITS | Encounter Summary ---
Author Organization [facility] Address [address] [facility] [address] [place] [address] Phone Care Team Providers Care Reimbursement Spec Name Role Phone Salvador Alanis DO Primary Care Provider [phone] Encounter Details Date Type Department Care Team (Late st Contact Info) Description 07/04/2023 Procedure Pass [facility], [facility] [address] [place], [place] [id number] Social History Tobacco Use Types Packs/Day Years Used Date Smoking Tobacco: Never Smokeless Tobacco: Never Alcohol Use Standard Drinks/Week Comments No 0 (1 standard drink = 0.6 oz pur e alcohol) Education Answer Date Recorded Are you interested in more education? Not on nurys e 03/11/2023 Are you concerned about learning? Not on file 03/11/2023 No 03/11/2023 No 03/11/2023 Digital Access Answer Date Recorded No 04/06/2023 No 04/06/2023 Reliable internet access at home? Not on file 04/06/2023 Device with a working camera? Not on file Comments No Sex and Gender Information Value [...] Description 12/30/2025 1:00 PM EST Office Visit [facility] [address] [facility] 3rd Floor, [address] [place] [address] Cj Foreman MD [address] [place] [address], [address] [place] [address] [email or web address] documented as of this encounter Visit Diagnoses Not on filedocumented in this encounter Care Teams Reimbursement Spec Relationship Specialty Start Date End Date Salvador Alanis DO [email or web address] PCP - General 09/01/17 documented as of this encounter Additional Source Comments The information contained in this document represents components of the legal health record. It is not the complete legal health record.[facility]
--- OUTSIDE RECORDS SUMMARY | 2025-11-11 16:03 | XMS_ITS | Encounter Summary ---
Author Organization [facility] Address [address] [place] [address] [place] [address] Phone Care Team Providers Care Surgical Appliances Salesperson Name Role Phone Salvador Alanis DO Primary Care Provider [phone] Encounter Details Date Type Department Care Team (Late Contact Info) Description 07/04/2023 Transcribe Orders Virtual Department [address] [place] [address] Salvador Alanis DO [address] [facility] [place] [address] [email or web address] Breast screening (Primary Dx) Social History Tobacco Use Types [...] Description 12/30/2025 1:00 PM EST Office Visit [facility] [address] [facility] 3rd Floor, [address] [place] [address] Cj Foreman MD 22 [facility], [address] [place] [address] [email or web address] documented as of this encounter Results * BI MAMMOGRAM SCREENING WITH TOMOSYNTHESIS WITH CAD (BILATERAL) (12/06/2023 3:00 PM EST) Anatomical Region Laterality Modality Breast Left, Breast Right, Breast Bilateral Bila teral Mammography 12/09/2023 5:28 PM EST Impressions 12/12/2023 8:35 AM EST No mammographic signs of malignancy. Annual screening is recommended. BI-RADS CATEGORY: 2 - Benign finding. DENSITY: There are scattered fibroglandular densities. Narrative 12/12/2023 8:35 AM EST Bilateral mammography is performed in conjunction with computed aided detection. 3-D tomography along with 2-D C view imaging was also performed. Comparison made to previous dated as far back as 08/05/2017 and as recent as 09/27/2022. No suspicious masses, areas of architectural distortion or suspicious microcalcifications. Stable bilateral circumscribed masses, possibly intramammary lymph nodes. Stable diffusely distributed bilateral microcalcifications and mild bilateral vascular calcifications. Procedure Note Andrea Flores MD - 12/12/2023 Bilateral mammography is performed in conjunction with computed aideddetection. 3-D tomography along with 2-D C view imaging was alsoperformed. Comparison made to previous dated as far back as 08/05/2017 andas recent as 09/27/2022. No suspicious masses, areas of architectural distortion or suspiciousmicrocalcifications. Stable bilateral circumscribed masses, possiblyintramammary lymph nodes. Stable diffusely distributed bilateralmicrocalcifications and mild bilateral vascular calcifications. IMPRESSION: No mammographic signs of malignancy. Annual screening is recommended. BI-RADS CATEGORY: 2 - Benign finding. DENSITY: There are scattered fibroglandular densities. Salvador Alanis DO IMG MG EXAMS Final Result documented in this encounter Visit Diagnoses Diagnosis Breast screening- Primary Breast screening, unspecified Breast screening Breast screening, unspecified documented in this encounter Care Teams Surgical Appliances Salesperson Relationship Specialty Start Date End Date Salvador Alanis DO [email or web address] PCP - General 09/01/17 documented as of this encounter Additional Source Comments The information contained in this document represents components of the legal health record. It is not the complete legal health record.[facility]
--- OUTSIDE RECORDS SUMMARY | 2025-11-11 16:03 | XMS_ITS | Encounter Summary ---
Author Organization [facility] Address [address] [place] [address] [place] [address] Phone Care Team Providers Care Battery Installer Name Role Phone Salvador Alanis DO Primary Care Provider [phone] Encounter Details Date Type Department Care Team (Late st Contact Info) Description 12/14/2022 Procedure Pass [facility] [address] [place] [address] Social History Tobacco Use Types Packs/Day Years [...] 1:00 PM EST Office Visit [facility] [address] [place] [address] 3rd Floor, [address] [place] [address] Cj Foreman MD [address] [facility], [address] [place] [address] [email or web address] documented as of this encounter Visit Diagnoses Not on filedocumented in this encounter Care Teams Battery Installer Relationship Specialty Start Date End Date Salvador Alanis DO [email or web address] PCP - General 09/01/17 documented as of this encounter Additional Source Comments The information contained in this document represents components of the legal health record. It is not the complete legal health record.[facility]
--- OUTSIDE RECORDS SUMMARY | 2025-11-11 16:03 | XMS_ITS | Encounter Summary ---
Author Organization [facility] Address [address] [facility] [address] [place] [address] Phone Care Team Providers Care Flight Surveyor Name Role Phone Salvador Alanis DO Primary Care Provider [phone] Encounter Details Date Type Department Care Team (Late st Contact Info) Description 03/22/2025 Procedure Pass [facility], [facility] [address] [place] [address] Social History Tobacco Use Types Packs/Day Years [...] Description 12/30/2025 1:00 PM EST Office Visit [facility] [address] [place] [address] 3rd Floor, [address] [place] [address] Cj Foreman MD [address] [place] [address], [address] [address] documented as of this encounter Visit Diagnoses Not on filedocumented in this encounter Care Teams Flight Surveyor Relationship Specialty Start Date End Date Salvador Alanis DO PCP - General 09/01/17 documented as of this encounter Additional Source Comments The information contained in this document represents components of the legal health record. It is not the complete legal health record.[facility]
--- OUTSIDE RECORDS SUMMARY | 2025-11-11 16:03 | XMS_ITS | Encounter Summary ---
Author Organization [facility] Address [address] [facility] [address] [place] [address] Phone Care Team Providers Care Honey Processor Name Role Phone Salvador Alanis DO Primary Care Provider [phone] Encounter Details Date Type Department Care Team (Late st Contact Info) Description 02/02/2023 Transcribe Orders [facility] [address] [place] [address] Salvador Alanis DO [address] [facility] [address] [place], [place] [id number] Social History Tobacco Use Types Packs/Day Years [...] Office Visit [facility] [address] [place] [address] 3rd Floor, [address] [place] [address] Cj Foreman MD [address] [facility], [address] [place] [address] [email or web address] documented as of this encounter Visit Diagnoses Not on filedocumented in this encounter Care Teams Honey Processor Relationship Specialty Start Date End Date Annabelle Salvador DO Jack [email or web address] PCP - General 09/01/17 documented as of this encounter Additional Source Comments The information contained in this document represents components of the legal health record. It is not the complete legal health record.[facility]
--- OUTSIDE RECORDS SUMMARY | 2025-11-11 16:03 | XMS_ITS | Encounter Summary ---
Author Organization [facility] Address [address] [facility] [address] [place] [address] Phone Care Team Providers Care Account Management Specialist Name Role Phone Salvador Alanis DO Primary Care Provider [phone] Encounter Details Date Type Department Care Team (Late st Contact Info) Description 02/27/2024 Procedure Pass [facility], [facility] Scan - [address] [address] Social History Tobacco Use Types Packs/Day Years [...] Description 12/30/2025 1:00 PM EST Office Visit [facility] [address] [place] [address] [facility], [address] [place] [address] Cj Foreman MD [address] [place] [address] [email or web address] documented as of this encounter Visit Diagnoses Not on filedocumented in this encounter Care Teams Account Management Specialist Relationship Specialty Start Date End Date Salvador Alanis DO PCP - General 09/01/17 documented as of this encounter Additional Source Comments The information contained in this document represents components of the legal health record. It is not the complete legal health record.[facility]
--- OUTSIDE RECORDS SUMMARY | 2025-11-11 16:03 | XMS_ITS | Encounter Summary ---
Author Organization [facility] Address [address] [facility] [address] [place] [address] Phone Care Team Providers Care Wax Machine Operator Name Role Phone Salvador Alanis DO Primary Care Provider [phone] Encounter Details Date Type Department Care Team (Late st Contact Info) Description 07/06/2018 Ancillary Orders [facility] Department [address] [place] [address] Salvador Alanis DO [address] [facility] [place] [address] Breast screening Social History Tobacco Use Types [...] Description 12/30/2025 1:00 PM EST Office Visit [facility] [address] [facility] 3rd Floor, [address] [place] [address] Cj Foreman MD [address] [facility], [address] [place] [address] documented as of this encounter Results * BI MAMMOGRAM SCREENING WITH TOMOSYNTHESIS WITH CAD (BILATERAL) (08/14/2018 12:46 PM EDT) Anatomical Region Laterality Modality Breast Left, Breast Right, Breast Bilateral Bila teral Mammography 08/14/2018 1:21 PM EDT Impressions 08/14/2018 1:23 PM EDT Stable appearance relative to prior imaging. No findings suggestive of malignancy are seen. BI-RADS CATEGORY: 2 - Benign finding. DENSITY: There are scattered fibroglandular densities. POS - [id number] Narrative 08/14/2018 1:23 PM EDT Full-field digital mammography is obtained with computer-aided detection. Comparison with prior imaging from 08/05/2017 is made with older imaging dating back as far as 02/07/2012 also reviewed. There is scattered fibroglandular density evident in the breasts. In addition to 2-D C view imaging, tomosynthesis images are obtained in two projections of each breast. There are scattered bilateral vascular and coarsened calcifications present. These are unchanged. No dominant soft tissue mass of concern, suspicious cluster of calcifications, significant interval skin changes, or architectural distortion is identified. Procedure Note Jean Claude Kwon MD - 08/14/2018 Full-field digital mammography is obtained with computer-aided detection.Comparison with prior imaging from 08/05/2017 is made with older imagingdating back as far as 02/07/2012 also reviewed. There is scattered fibroglandular density evident in the breasts. Inaddition to 2-D C view imaging, tomosynthesis images are obtained in twoprojections of each breast. There are scattered bilateral vascular and coarsened calcificationspresent. These are unchanged. No dominant soft tissue mass of concern,suspicious cluster of calcifications, significant interval skin changes,or architectural distortion is identified. IMPRESSION: Stable appearance relative to prior imaging. No findings suggestive ofmalignancy are seen. BI-RADS CATEGORY: 2 - Benign finding. DENSITY: There are scattered fibroglandular densities. POS - [id number] us Salvador Alanis DO IMG MG EXAMS Final Result documented in this encounter Visit Diagnoses Diagnosis Breast screening Breast screening, unspecified Breast screening Breast screening, unspecified documented in this encounter Care Teams Wax Machine Operator Relationship Specialty Start Date End Date IleanaSalvador mulligan DO PCP - General 09/01/17 documented as of this encounter Additional Source Comments The information contained in this document represents components of the legal health record. It is not the complete legal health record.[facility]
--- OUTSIDE RECORDS SUMMARY | 2025-11-11 16:03 | XMS_ITS | Encounter Summary ---
Author Organization [facility] Address [address] [facility] [facility] [place] [address] Phone Care Team Providers Care Trust Evaluation Supervisor Name Role Phone Salvador Alanis DO Primary Care Provider [phone] Encounter Details Date Type Department Care Team (Late Contact Info) Description 09/05/2018 Ancillary Orders [facility] Department [address] [place] [address] Salvador Alanis DO [address] [facility] [place] [address] [place] [address] Osteopenia, unspecified location Social History Tobacco Use Types Packs/Day Years [...] Description 12/30/2025 1:00 PM EST Office Visit [facility] [address] [facility] 3rd Floor, [address] [place] [address] Cj Foreman MD [address] [facility], [address] [place] [address] documented as of this encounter Results * BD DXA SPINE AND HIP WITH FOREARM (01/16/2019 12:57 PM EST) Anatomical Region Laterality Modality Bone Density Bone Density 01/16/2019 1:06 PM EST Impressions 01/16/2019 1:26 PM EST Ongoing osteopenia based on left forearm, and now right hip BMD with mild loss of density at both those sites since 2014. POS -[id number] Narrative 01/16/2019 1:26 PM EST This is a 73-year-old female who reports a perceived height loss of about 2 inches. Past but no recent hormone therapy. No history of steroid use. Currently taking calcium supplements.. Comparison is made to 05/06/2014. Evaluation of the lumbar spine, left forearm and both hips was performed and felt to be technically adequate. Total bone mineral density in the L1-L4 vertebral bodies was calculated at 0.982 gm/cm2 with a T score of -0.3. This falls within the WHO classification of normal. This is a 4.0% increase BMD since 2014, likely accentuated by progressive degenerative endplate spurring. Total bone mineral density in the right proximal femur was calculated at 0.807 gm/cm2 with a T-score of -1.1 falling within the WHO classification of borderline osteopenia. This represents a -7.4% decrease BMD since 2014. Total bone mineral density in the left proximal femur was calculated at 0.847 gm/cm2 with a T-score of -0.8 falling within the WHO classification of normal. This is not a statistically significant change from 2014. Total bone mineral density in the left forearm was calculated at 0.464 gm/cm2 with a T-score of -2.0 falling within the WHO classification of osteopenia. This represents a -8.8% decrease BMD since 2014. Procedure Note Floyd Swann MD - 01/16/2019 This is a 73-year-old female who reports a perceived height lossof about 2 inches. Past but no recent hormone therapy. No history of steroid use. Currently taking calcium supplements.. Comparison is made to 05/06/2014. Evaluation of the lumbar spine, left forearm and both hips was performedand felt to be technically adequate. Total bone mineral density in the L1-L4 vertebral bodies was calculated at0.982 gm/cm2 with a T score of -0.3. This falls within the WHOclassification of normal. This is a 4.0% increase BMD since 2013, likely accentuated by progressivedegenerative endplate spurring. Total bone mineral density in the right proximal femur was calculated at0.807 gm/cm2 with a T-score of -1.1 falling within the WHO classificationof borderline osteopenia. This represents a -7.4% decrease BMD since 2013. Total bone mineral density in the left proximal femur was calculated at0.847 gm/cm2 with a T-score of -0.8 falling within the WHO classificationof normal. This is not a statistically significant change from 2013. Total bone mineral density in the left forearm was calculated at 0.464gm/cm2 with a T-score of -2.0 falling within the WHO classification ofosteopenia. This represents a -8.8% decrease BMD since 2013. IMPRESSION: Ongoing osteopenia based on left forearm, and now right hip BMD with mildloss of density at both those sites since 2013. POS -[id number] us Salvador Alanis DO IMG BD BONE DENSITY DEXA Final R esult documented in this encounter Visit Diagnoses Diagnosis Osteopenia, unspecified location Osteopenia, unspecified location documented in this encounter Care Teams Trust Evaluation Supervisor Relationship Specialty Start Date End Date Salvador Alanis DO [email or web address] PCP - General 09/01/17 documented as of this encounter Additional Source Comments The information contained in this document represents components of the legal health record. It is not the complete legal health record.[facility]
--- OUTSIDE RECORDS SUMMARY | 2025-11-11 16:03 | XMS_ITS | Encounter Summary ---
Author Organization [facility] Address [address] [place] [address] [place] [phone] Phone Care Team Providers Care Project Control Manager Name Role Phone Salvador Alanis DO Primary Care Provider [phone] Encounter Details Date Type Department Care Team (Late st Contact Info) Description 06/02/2020 Procedure Pass OR Admitting Dept - [facility] Department [address] [place] [id number] Social History Tobacco Use Types Packs/Day Years [...] Description 12/30/2025 1:00 PM EST Office Visit [facility] [address] [place] [address] 3rd Floor, [address] [place] [address] Cj Foreman MD [address] [facility], [address] [place] [address] [email or web address] documented as of this encounter Visit Diagnoses Not on filedocumented in this encounter Care Teams Project Control Manager Relationship Specialty Start Date End Date Salvador Alanis DO PCP - General 09/01/17 documented as of this encounter Additional Source Comments The information contained in this document represents components of the legal health record. It is not the complete legal health record.[facility]
--- OUTSIDE RECORDS SUMMARY | 2025-11-11 16:03 | XMS_ITS | Encounter Summary ---
Author Organization [facility] Address [address] [facility] [address] [place] [address] Phone Care Team Providers Care Racetrack Steward Name Role Phone Salvador Alanis DO Primary Care Provider [phone] Encounter Details Date Type Department Care Team (Late st Contact Info) Description 02/27/2024 Procedure Pass OR Admitting Dept - Virtual Department [address] [place] [address] Social History Tobacco Use Types Packs/Day Years [...] Description 12/30/2025 1:00 PM EST Office Visit [facility] [address] [place] [address] 3rd [facility], [address] [place] [address] Cj Foreman MD [address] [place] [address] [email or web address] documented as of this encounter Visit Diagnoses Not on filedocumented in this encounter Care Teams Racetrack Steward Relationship Specialty Start Date End Date Salvador Alanis DO PCP - General 09/01/17 documented as of this encounter Additional Source Comments The information contained in this document represents components of the legal health record. It is not the complete legal health record.[facility]
--- OUTSIDE RECORDS SUMMARY | 2025-11-11 16:03 | XMS_ITS | Encounter Summary ---
Author Organization [facility] Address [address] [facility] [address] [place] [address] Phone Care Team Providers Care Laundry Tech Name Role Phone Salvador Alanis DO Primary Care Provider Encounter Details Date Type Department Care Team (Late st Contact Info) Description 08/11/2020 Ancillary Orders [facility] Department [address] [place] [address] Salvador Alanis DO [address] [facility] [place] [address] [place] [address] [email or web address] Breast screening Social History Tobacco Use Types [...] Description 12/30/2025 1:00 PM EST Office Visit [facility] [address] [facility] 3rd Floor, [address] [place] [address] Cj Foreman MD [address] [facility], [address] [place] [phone] documented as of this encounter Results * (ABNORMAL) BI MAMMOGRAM SCREENING WITH TOMOSYNTHESIS WITH CAD (BILATERAL) (09/24/2020 1:56 PM EST) Anatomical Region Laterality Modality Breast Left, Breast Right, Breast Bilateral Bila teral Mammography 09/24/2020 2:25 PM EST Impressions 09/24/2020 2:33 PM EST Small retroareolar left breast nodule which seems to have enlarged minimally since prior studies. An attempt will be made to have the patient return department for additional imaging in order to allow for further characterization. No other significant findings apparent. BI-RADS CATEGORY: 0 - Incomplete. Need additional imaging evaluation. DENSITY: The breast tissue is heterogeneously dense, which could obscure a lesion on mammography. LEFT RECOMMENDATION DUE DATE: 1 Month Left Additional Imaging Callback views: Craniocaudal and mediolateral spot compression combo. Ultrasound. RIGHT RECOMMENDATION DUE DATE: 12 Months Right Mammography Screening Narrative 09/24/2020 2:33 PM EST Standard digital full-field 2-D C view and two-plane tomographic imaging was performed and compared with multiple prior studies, most recently 08/31/2019, with utilization of computer-aided detection. The breast parenchyma is heterogeneously dense, somewhat limiting mammographic sensitivity. There is a circumscribed 5 mm nodule in the lateral retroareolar left breast an estimated 4 cm from the nipple which seems to represent a subtle change from prior studies. The stromal markings are otherwise essentially stable in overall appearance and distribution. No dominant spiculated mass, suspicious clustered microcalcifications, or focal zone of pathologic skin thickening or retraction are noted to have arisen in the interim. Salvador Alanis DO IMG MG EXAMS Final Result documented in this encounter Visit Diagnoses Diagnosis Breast screening Breast screening, unspecified Breast screening Breast screening, unspecified documented in this encounter Care Teams Laundry Tech Relationship Specialty Start Date End Date Salvador Alanis DO PCP - General 09/01/17 documented as of this encounter Additional Source Comments The information contained in this document represents components of the legal health record. It is not the complete legal health record.[facility]
--- OUTSIDE RECORDS SUMMARY | 2025-11-11 16:03 | XMS_ITS | Clinical Summary ---
Author Organization [facility] Address [address] [place], [place] [id number] Phone Care Team Providers Care Floor Layer Tile Name Role Phone London Persaud DO Primary Care Provider [phone] Allergies No known active allergies Medications aspirin 81 MG EC tablet Take 81 mg by mouth nightly at bedtime. Active levothyroxine (SYNTHROID, LEVOTHROID) 88 MCG tablet Take 88 mcg by mouth every morning. Active magnesium oxide (MAG-OX) 400 mg (240 mg elemental) tablet Take 400 mg by mouth daily. Active cyanocobalamin, vitamin B-12, 250 MCG tablet Take 250 mcg by mouth daily. Active coenzyme Q10 100 mg capsule Take 100 mg by mouth daily. Active dilTIAZem (CARDIZEM CD) 180 MG 24 hr capsule Take 1 capsule (180 mg total) by mouth daily. 90 capsule 3 12/26/2024 Active rivaroxaban (XARELTO) 20 mg Tab Take 1 tablet (20 mg total) by mouth daily with dinner. 90 tablet 3 04/01/2025 Active atorvastatin (LIPITOR) 40 MG tabletIndicatio ns:Prescription refill TAKE 1 TABLET BY MOUTH EVERY DAY 90 tablet 3 07/08/2025 Active Hospital, Clinic, or Other Facility Administered Medication Ordered Dose Route Frequency Start Date End Date Status hyaluronate sodium, stabilized (DUROLANE) intra-articular syringe 60 mgIndications:Primary osteoarthritis of right knee 60 mg IAtc Once 08/27/2025 11/25/2025 Active Active Problems Problem Noted Date Diagnosed Date Atrial fibrillation 09/13/2024 Assessment & Plan (03/28/2025 11:36 AM EDT): New A-fib diagnosis. She was ultimately asymptomatic in A-fib. She has a [id number] of at least 5 so We started patient on Eliquis 5 mg twice daily but patient has since discontinued this about 2 weeks ago after she saw her PCP who stated she should be on Xarelto but only stated patient on 10 mg daily which is insufficient for stroke protection which we discussed in great detail. Patient has had no improvement in her fatigue off of the Eliquis either. Therefore recommended if patient would like to stay on Xarelto recommend 20 mg daily, . Patient states understanding and wishes to discuss this with her PCP and will reach out to the office if 20 mg tablet prescription is needed. Her diltiazem was also increased to 180 mg daily. She thinks this also might be correlating to her current fatigue but we are going to continue this current dose at this time as BP is much improved. Assessment & Plan (09/13/2024 1:07 PM EDT): Recent monitor 05/2024 shows atrial fibrillation noted for 49 seconds. Reviewed the strips with Dr. Foreman who believes this to be sinus with multiple PACs. Discussed with patient. Patient's PCP has increased her baby aspirin to a full dose aspirin due to this finding. She has a [id number] of at least 5 so if patient is truly having new atrial fibrillation, she will require oral anticoagulation. Plan is to repeat a 30-day monitor to assess for any true atrial fibrillation. Type I or II open fracture o f olecranon process of left ulna, initial encounter 02/27/2024 Assessment & Plan (02/29/2024 4:49 PM EDT): Came to the ED by ambulance after a fallWith complaint of left elbow pain toe pain Went to the OR 02/26 ORIF elbow fracture. PT OT working with patient. Patient only using Tylenol for pain wants to avoid opioids. Weight-bear as tolerated Spoke with patient about going to acute rehab. . Case management doing referrals Closed nondisplaced fracture of fifth metatarsal bone of left foot 02/27/2024 Overview (02/27/2024): Foot splinted. Pain medications ordered. Orthopedics will be seeing her in consultation. Assessment & Plan (02/28/2024 1:13 PM EDT): Foot splinted. Pain medications ordered. Orthopedics saw her in consultation. 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 Assessment & Plan (09/13/2024 12:59 PM EDT): Most recent echo shows a bioprosthetic aortic valve in place which is well- seated. Continue serial echoes. Assessment & Plan (12/05/2023 1:56 PM EST): Her repeat echocardiogram in April 2023 showed normal function of her aortic bioprosthetic valve. She has a follow-up echocardiogram in March 2023 with a follow-up to those results with Dr. Foreman after that. He is asymptomatic. Assessment & Plan (12/14/2022 1:52 PM EST): Repeat echo prior to previously arranged follow up with Dr Foreman in April. Assessment & Plan (01/20/2022 2:14 PM EST): No issues as of the last echocardiogram. Upcoming echocardiogram to re-evaluate. Assessment & Plan (10/28/2020 1:21 PM EST): Last echocardiogram was only several months ago. Valve is still functioning normally and would repeat in 1 year. She does have mild aortic root dilatation last measured at 4.4 Assessment & Plan (05/27/2020 9:56 AM EDT): She is due for complex ankle surgery in several weeks. Presuming her echocardiogram is unchanged I would consider her at low to at worst moderate risk of cardiac complications and no contraindication exists. Her aspirin should be continued as long as feasible. Assessment & Plan (05/06/2020 3:27 PM EDT): With her slight increase in dyspnea and the possible need for orthopedic surgery I have asked her to get her echocardiogram repeated. Assessment & Plan (10/19/2019 2:19 PM EST): Little if any significant change. Will need repeat in a year. Assessment & Plan (04/11/2019 11:58 AM EDT): No change on exam and was functioning well on relatively recent echocardiography peer Assessment & Plan (09/13/2018 12:02 PM EDT): Functioning normally at recent echocardiography. We will repeat in 1 year. Essential hypertension 10/10/2017 Assessment & Plan (03/28/2025 11:37 AM EDT): BP at goal. Continue lifestyle modifications. Continue diltiazem 180 mg daily Assessment & Plan (09/13/2024 1:01 PM EDT): borderline high today. Patient unsure what her medications are at this time as she states her PCP Dr. Persaud has recently stopped metoprolol and started something else but she is not sure what. She will call the office with her correct medication list. I will try to get PCP note. Assessment & Plan (12/05/2023 1:55 PM EST): She is doing well from a cardiovascular standpoint and her BP is at goal of 116/66 here in the office today. She is on amlodipine 5 mg daily, metoprolol 25 mg twice daily. She remains medication without change. She is encouraged follow her including low sodium. Assessment & Plan (12/14/2022 1:52 PM EST): Blood pressure in office today 114/70. Continue metoprolol and amlodipine. Assessment & Plan (01/20/2022 2:13 PM EST): Good blood pressure today in the office. Continue on current antihypertensive therapy. Assessment & Plan (10/28/2020 1:21 PM EST): Elevated today. Was fine when she was here 2 months ago. She will monitor at home and call if she is 140 or above. Assessment & Plan (09/02/2020 12:21 PM EDT): Controlled it does not therapy. No changes. Assessment & Plan (05/27/2020 9:56 AM EDT): Mildly elevated today but uncomfortable. No changes. Assessment & Plan (05/06/2020 3:27 PM EDT): Fair control. No changes. Assessment & Plan (10/19/2019 2:17 PM EST): Borderline control. Assessment & Plan (04/11/2019 11:58 AM EDT): Controlled on present therapy. Assessment & Plan (09/13/2018 12:03 PM EDT): Controlled on present therapy. No changes. Hypercholesteremia 10/10/2017 Assessment & Plan (03/28/2025 11:37 AM EDT): Continue atorvastatin. Assessment & Plan (09/13/2024 1:01 PM EDT): Continue atorvastatin. Assessment & Plan (12/05/2023 1:56 PM EST): Continue atorvastatin 40 mg daily. Assessment & Plan (01/20/2022 2:16 PM EST): Current LDL approaching goal at 80. Goal LDL less than 70. No changes to current statin therapy. Assessment & Plan (10/28/2020 1:21 PM EST): Numbers were good in May. I have asked her to repeat them. Assessment & Plan (09/02/2020 12:22 PM EDT): Profile from May was fine with an LDL in the 60s and HDL in the high 50s. Renal and hepatic function remain benign. Assessment & Plan (05/27/2020 9:56 AM EDT): Excellent profile with an LDL in the 60s and HDL in the 50s. Renal and hepatic function are fine. Assessment & Plan (05/06/2020 3:27 PM EDT): Statin unchanged. She will have labs drawn when she is able to. Assessment & Plan (08/13/2019 12:25 PM EDT): LDL is now 82. We could settle for that or possibly add Zetia. I am still not convinced that her symptom had anything to do with her statin but I want to do one thing at a time so I will bring her back once her echo is done. Assessment & Plan (04/11/2019 11:59 AM EDT): LDL much improved to 94 but I would like to see if I can get it somewhere close to 70 and have increase of her atorvastatin to 80 mg a day and arrange for labs to be repeated before next visit in 3 to 4 months. Assessment & Plan (09/13/2018 12:02 PM EDT): On moderate dose of atorvastatin with labs pending. Goal should be an LDL of 70 or less. 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 Patient has no symptoms concerning for angina or heart failure at this time. Continue aspirin lifelong. Continue to optimize cardiovascular risk factors. Follow-up in 3 months. Assessment & Plan (09/13/2024 1:03 PM EDT): Hx CAD S/p CABG (ANTELMO-D1, SVG-LCx) 2010. Patient has no symptoms concerning for angina or heart failure at this time. Continue aspirin lifelong. Continue to optimize cardiovascular risk factors. Follow-up in 3 months. Assessment & Plan (02/28/2024 1:17 PM EDT): History of CABG 2010 with AVR for aortic stenosis, also history of thoracic aortic aneurysm, hypertension. Last seen by cardiology November 2023. Had nuke stress test 2022 normal, echo April 2023 normal EF normal function of her aortic bioprosthetic valve Next follow-up april 2024 Assessment & Plan (12/14/2022 1:55 PM EST): She reports a noticeable increase in MILLAN over the past 6 months, sometimes accompanied by a sensation of heart pounding and chest discomfort. She had a normal nuclear stress test in January of last year, but these symptoms are new since then. Will repeat a nuclear stress test in the coming weeks. In the meantime, she will remain on 81 mg aspirin indefinitely. Her lipids are well controlled on atorvastatin. Assessment & Plan (01/20/2022 2:15 PM EST): Normal nuclear stress test as of January 2022. Continue on current cardiac regimen without change. Continue to optimize cardiovascular risk factors. Assessment & Plan (10/28/2020 1:20 PM EST): Doing well. Last echocardiogram was just a few months ago. Which suggest repeat in 1 year. Assessment & Plan (09/02/2020 12:21 PM EDT): Doing well. No significant symptoms. Feels well during exercise. Assessment & Plan (05/27/2020 9:55 AM EDT): ECG today reveals a sinus rhythm at 70 and has voltage criteria for left ventricular hypertrophy but no other significant findings. Assessment & Plan (05/06/2020 3:26 PM EDT): No angina. ECG today reveals a sinus rhythm with voltage criteria for left ventricular hypertrophy and nonspecific diffuse T wave changes. Assessment & Plan (10/19/2019 2:16 PM EST): She is back to her usual activity without symptoms. Assessment & Plan (08/13/2019 12:24 PM EDT): No angina. Assessment & Plan (04/11/2019 11:58 AM EDT): No angina. Activity level increasing. Assessment & Plan (09/13/2018 12:02 PM EDT): Doing well clinically without evidence of angina. I have encouraged her to be more active but she is presently caring for her 46-year-old Down syndrome son and her is now hospitalized for severe Parkinson's with dementia and behavioral abnormalities. GERD (gastroesophageal reflux disease) 7 Monoclonal gammopathy 10/10/2017 Hypothyroidism 10/10/2017 Assessment & Plan (08/13/2019 12:26 PM EDT): She also describes episodes of diaphoresis that can occur 2 or 3 times a day lasts for a minute or 2. She tells me her thyroid is been well adjusted. I have no recent labs but I presume you do. Osteoarthritis 10/10/2017 Migraines 10/10/2017 Thoracic aortic aneurysm without rupture Overview (10/10/2017): Ascending aorta 4.7 cm. Assessment & Plan (03/28/2025 11:38 AM EDT): Most recent echo shows 47 mm. Continue serial echoes. Assessment & Plan (09/13/2024 12:59 PM EDT): Most recent echo shows 47 mm. Continue serial echoes. Assessment & Plan (09/02/2020 12:21 PM EDT): Now 4.4. Assessment & Plan (05/27/2020 9:57 AM EDT): Was 4.3 in August. Echocardiogram has been scheduled for this Tuesday. Assessment & Plan (04/11/2019 11:59 AM EDT): Unchanged on recent echocardiography. Would suggest repeat echo in about 1 year. Assessment & Plan (09/13/2018 12:03 PM EDT): As above down measured at 4.4. Will reimage in 1 year. Resolved Problems Problem Noted Date Diagnosed Date Resolved Date Encounter to discuss test results 01/20/2022 02/27/2024 Episodic lightheadedness 08/13/2019 Assessment & Plan (08/13/2019 12:23 PM EDT): I am not sure what this is due to. It seems unlikely to be related to her statins. Although her work-up was only 6 months ago I am going to repeat chest her echocardiogram to be sure that the valve is still okay. I think it is unlikely. I am not can make any other changes for now but I will bring her back once the echo is been completed to see if she is had further episodes. If she does I may want to repeat her Holter as well or possibly place an ILR Syncope and collapse 12/25/2018 024 Assessment & Plan (12/25/2018 3:49 PM EST): Most likely this was a vagal faint related to micturition. We have no evidence that this was a significant cardiac issue and but I am going to place a Holter today to be sure that she is maintaining sinus rhythm at a reasonable rate. She is extraordinarily concerned about any structural vascular issues so I am going to have her echocardiogram repeated. Presuming these examinations are benign I will see her here in about 3 months and have a full set of labs drawn then as well. Chest pain 02/27/2024 Overview (10/10/2017): Atypical and longstanding. Ankle fracture, bimalleolar, closed, left, with delayed healing, subsequent encounter 02/27/2024 Encounters Date Type Department Care Team Description 09/11/2025 12:58 PM EDT - 09/11/2025 11:59 PM EDT Hospital Encounter [facility], [facility] D[facility] - [address] [address] Deidre Guadalupe NP Discharge Disposition: Home or Self Care 08/27/2025 3:00 PM EDT Office Visit [facility] [address] [place] [id number] Hermilo Schilling, ESE Primary osteoarthritis of right knee (Primary Dx) from Last 3 Months Immunizations Immunization Administration Dates Next Due Tdap 02/27/2024 Family History Medical History Relation Comments Breast cancer Cousin 1 maternal Breast cancer Cousin 2 Breast cancer Cousin 3 Ovarian cancer Cousin 4 maternal Ovarian cancer Cousin 5 paternal Ovarian cancer Cousin 6 maternal Breast cancer Daughter Breast cancer Maternal Aunt Alzheimer's disease Mother Hypertension Sister Relation Status Comments Cousin 1 Cousin 2 Cousin 3 Cousin 4 Cousin 5 Cousin 6 Daughter Father Maternal Aunt Mother Sister Social History Tobacco Use Types Packs/Day Years Used Date Smoking Tobacco: Never Smokeless Tobacco: Never Tobacco Cessation:Counseling Given: Not Answered Alcohol Use Standard Drinks/Week Comments No 0 [...] Not on file N ot on file Last Filed Vital Signs Vital Sign Reading Time Taken Comments Blood Pressure 134/80 06/26/2025 12:55 PM EDT Pulse 73 06/26/2025 12:55 PM EDT Temperature 36.3 C (97.3 F) 04/19/2024 9:55 AM EDT Respiratory Rate 14 04/19/2024 9:55 AM EDT Oxygen Saturation 97% 06/26/2025 12:55 PM EDT Inhaled Oxygen Concentration - - Weight 70.8 kg (156 lb) 06/26/2025 12:55 PM EDT Height 158.4 cm (5' 2.36 ) 06/26/2025 12:55 PM E DT Body Mass Index 28.2 06/26/2025 12:55 PM EDT Plan of Treatment Upcoming Encounters Date Type Department Care Team (Late st Contact Info) Description 12/30/2025 1:00 PM EST Office Visit [facility] [address] [place] [address] [address]rd Floor, [address] [place] [address] [phone] Cj Foreman MD [address] [facility], [address] [place] [phone] [email or web address] Health Maintenance Due Date Last Done Comments DEPRESSION SCREENING 1955 RSV VACCINE (1 - 1-dose 75+ series) 2018 PNEUMOCOCCAL VACCINES (50+ years) (2 of 2 - PCV20 or PCV21) 08/03/2018 08/03/2017 ZOSTER VACCINES (3 of 3) 04/12/20192 019, 10/22/2018, 10/20/2018 INFLUENZA VACCINE (#1) 2025 4, 09/22/2023, 08/23/2022, Additional history exists COVID-19 VACCINE ( season) 2025 10/01/2021, 10/01/2021, 02/19/2021, Additional history exists BLOOD PRESSURE 12/27/2025 06/26/2025 CREATININE LEVEL 05/13/2026 05/13/2025, , 03/02/2024, Additional history exists TSH LEVEL 05/13/2026 05/13/2025, 01/21/2021 Adult Td,Tdap Booster 02/26/2034 02/27/2024, 019 OSTEOPOROSIS SCREENING INITIAL (ONE-TIME) Completed 09/11/2025, 01/16/2019 HEPATITIS A VACCINES Aged Out No long er eligible based on patient's age to complete this topic HIB VACCINES Aged Out No longer eligi ble based on patient's age to complete this topic MENINGOCOCCAL VACCINES (ACWY) Aged Out No longer eligible based on patient's age to complete this topic MENINGOCOCCAL VACCINES (B) Aged Out N o longer eligible based on patient's age to complete this topic Medical Devices Implanted Type Area Level Vial Inspector Device Identifier Shelf Expiration Date Model / Serial / Lot Lens-06/02/2016 Implanted:05/15 (Quantity not on file) Lens Bilateral: Eye Screw Bone 3.5x18mm Cortex Self Tapping Fully Threaded Hex Head Ss - [id number] Implanted:Qty: 1 on 06/02/2020 by Isaac Myers MD at [facility] Left: Ankle SYNTHES 204.818 / / Screw Bone 16x4.0mm Cancellous Ss Self Tapping Fully Threaded - [id number] Implanted:Qty: 1 on 06/02/2020 by Isaac Myers MD at [facility] Left: Ankle SYNTHES 206.016 / / Screw Bone 14x4.0mm Cancellous Ss Self Tapping Fully Threaded - [id number] Implanted:Qty: 1 on 06/02/2020 by Isaac Myers MD at [facility] Left: Ankle SYNTHES 206.014 / / Screw Bone 40x4.0mm Cannulated Ss Self Drilling Tapping Long Thread Hexagonal Socket Flat Head - [id number] Implanted:Qty: 1 on 06/02/2020 by Isaac Myers MD at [facility] Left: Ankle SYNTHES 207.740 / / Screw Bone 50x4.0mm Cannulated Ss Self Drilling Tapping Long Thread Hexagonal Socket Flat Head - [id number] Implanted:Qty: 1 on 06/02/2020 by Isaac Myers MD at [facility] Left: Ankle SYNTHES 207.750 / / Washer Bone 7.0mm Sm Screw Cannulated Ss - [id number] Implanted:Qty: 2 on 06/02/2020 by Isaac Myers MD at [facility] Left: Ankle SYNTHES 219.98 / / Bone Plate 85x3.5mm 7 Hole Tubular One Third With Collar Ss - [id number] Implanted:Qty: 1 on 06/02/2020 by Isaac Myers MD at [facility] Left: Ankle SYNTHES 241.37 / / Screw Bone 3.5x14mm Cortex Self Tapping Fully Threaded Hex Head Ss - [id number] Implanted:Qty: 3 on 06/02/2020 by Isaac Myers MD at [facility] Left: Ankle SYNTHES 204.814 / / Screw Bone 3.5x16mm Cortex Self Tapping Fully Threaded Hex Head Ss - [id number] Implanted:Qty: 1 on 06/02/2020 by Isaac Myers MD at [facility] Left: Ankle SYNTHES 204.816 / / Prosthetic Valve- 1 Implanted:05/15 (Quantity not on file) Prosthetic Valve Wire-06/02/2011 Implanted:05/15 (Quantity not on file) Wire Sternum K Wire 0.62 Implanted:Qty: 2 on 02/27/2024 by Flaco Cabello MD at [facility] Left: Elbow 18g. Wire Implanted:Qty: 1 on 02/27/2024 by Flaco Cabello MD at [facility] Left: Elbow Procedures Procedure Name Priority Date/Time Associated Diagnosis Comments BD DXA AXIAL (SPINE) WITH HIP Routine 09/11/2025 1:16 PM EDT Encounter for screening for osteoporosis THYROID STIMULATING HORMONE (TSH) Routine 05/13/2025 8:23 AM EDT Localized edema Hypothyroidism, unspecified type COMPREHENSIVE METABOLIC PANEL (CMP) Routine 05/13/2025 8:23 AM EDT Localized edema Hypothyroidism, unspecified type from Last 3 Months or Most Recently Relevant to Health Maintenance Results * BD DXA AXIAL (SPINE) WITH HIP (09/11/2025 1:16 PM EDT) Anatomical Region Laterality Modality Bone Density Bone Density 09/11/2025 1:13 PM EDT Impressions 09/12/2025 4:44 PM EDT Interpretation: Osteoporosis. Narrative 09/12/2025 4:44 PM EDT Referred By: LONDON PERSAUD Indications: Osteoporosis Scanner: SeptRx A with serial# of [id number] located at [facility] Bone Density Scan (DXA) 09/11/25 Details of [...] -2.5), or Osteoporosis (T-score <= -2.5). At [facility], T-scores are compared to peak bone density [...] Referred By: LONDON PERSAUD Indications: Osteoporosis Scanner: SeptRx A with serial# of [id number] located at [facility] Bone Density Scan (DXA) 09/11/25 Details of prior DXA scans are available by clicking View Full Report BMD T- Z- Skeletal Site gm/cm2 score score BMD Change Since Prior Scan ------ ----- PA Spine (L1 L2 L3) 1.008 -0.10 2.60 0.026 (2.6%)* since01/16/2019 Total Hip (Left) 0.747 -1.60 0.60 -0.100 (-11.8%)* 01/16/2019 Femoral Neck (Left) 0.563 -2.60 -0.20 [...] -2.5), or Osteoporosis (T-score <= -2.5). At [facility], T-scores are compared to peak bone density [...] density results. IMPRESSION: Interpretation: Osteoporosis. us [place] Jack Annabelle DO IMG BD BONE DENSITY DEXA Final R esult * (ABNORMAL) Comprehensive metabolic panel (05/13/2025 8:23 AM EDT) SODIUM 137 133 - 146 mmol/L [facility] POTASSIUM 3.7 3.3 - 5.1 mmol/L [facility] CHLORIDE 102 96 - 108 mmol/L [facility] CO2 27 21 - 35 mmol/L [facility] BUN 16 6 - 19 mg/dL [facility] CREATININE 0.70 0.5 - 1.5 mg/dL [facility] GLUCOSE 96 70 - 99 mg/dL [facility] ALBUMIN 3.8(L) 3.9 - 4.8 g/dL [facility] TOTAL PROTEIN 6.9 6.5 - 8.0 g/dL [facility] CALCIUM 9.1 8.4 - 10.3 mg/dL [facility] ALKALINE PHOSPHATASE 95 39 - 117 U/L [facility] TOTAL BILIRUBIN 0.4 0.0 - 1.2 mg/dL [facility] AST 24 0 - 37 U/L [facility] ALT 11 0 - 40 U/L [facility] GLOBULIN 3.1 1 - 4.8 g/dL [facility] EGFR 87 >59 mL/min/1.7 3m2 [facility] Comment:Estimated glomerular filtration rate calculated using the CKD-EPI refit equation. ANION GAP 12 10 - 20 mmol/L [facility] Blood 05/13/2025 8:23 AM EDT 05/13/2025 8:28 AM EDT us Sheron ESQUIVEL LAB BLOOD BKR ORDERABLES Fi nal Result [address] [address] * TSH (05/13/2025 8:23 AM EDT) TSH 0.59 0.27 - 4.20 uIU/mL [facility] Blood 05/13/2025 8:23 AM EDT 05/13/2025 8:28 AM EDT Sheron Smithba PA LAB BLOOD BKR ORDERABLES Fi nal Result Performing Organization Address City/[facility]/ZIP Co de Phone Number [address] [address] from Last 3 Months or Most Recently Relevant to Health Maintenance Insurance MEDICARE PART A & B [facility] Address: [facility] [id number] [place] [address] MEDICARE PART A & B [facility] MEDICARE PART A & B [facility] MEDICARE PART A & B MEDICARE PART A & B [facility] MEDICARE PART A & B [employer] ( [employer] ) MEDICARE PART A & B [facility] MEDICARE PART A & B Member Subscriber Plan / Payer (Ef fective 2008-) Name:Deidre Guadalupe Member ID:[id number] Relation to Subscriber:Self Name:Deidre Guadalupe Subscriber ID:[id number] Payer ID:[id number] Group ID:Not on file Type:Medicare Address: [employer] [address] [facility] MEDICARE PART A & B BLUE CROSS FEDERAL Advance Directives For more information, please contact: [phone] (9AM - 5PM [facility], Tuesday-Tuesday) Documents on File Type Date Recorded Patient Supervisor Screen Making Expl anation Healthcare Proxy 06/04/2020 4:59 PM * Full Code (Latest Code Status on File) Date Activated Date Inactivated Comments 02/27/2024 4:56 AM Question Answer Comments Code Status Confirmed With: Patient Care Teams Floor Layer Tile Relationship Specialty Start Date End Date London Persaud DO PCP - General 09/01/17 Additional Source Comments The information contained in this document represents components of the legal health record. It is not the complete legal health record.[facility]
--- OUTSIDE RECORDS SUMMARY | 2025-11-11 16:03 | XMS_ITS | Encounter Summary ---
Author Organization [facility] Address [address] [facility] [address] [place] [phone] Phone Care Team Providers Care Garment [employer] Cutter Hand Name Role Phone Salvador Alanis DO Primary Care Provider [phone] Encounter Details Date Type Department Care Team (Late st Contact Info) Description 02/27/2024 Procedure Pass [facility], Ct Scan - [address] [address] Social History Tobacco Use Types Packs/Day Years [...] Description 12/30/2025 1:00 PM EST Office Visit [facility] [address] [place] [address] [facility], [address] [place] [phone] Cj Foreman MD [address] [place] [phone] [email or web address] documented as of this encounter Visit Diagnoses Not on filedocumented in this encounter Care Teams Garment [employer] Cutter Hand Relationship Specialty Start Date End Date Salvador Alanis DO PCP - General 09/01/17 documented as of this encounter Additional Source Comments The information contained in this document represents components of the legal health record. It is not the complete legal health record.[facility]
--- OUTSIDE RECORDS SUMMARY | 2025-11-11 16:03 | XMS_ITS | Data Portability ---
Author Organization [facility], Telehealth Patient Home Address [address] [place] [address] Assessment Encounter Date Assessment Date Assessment LastModified by Organization Details LastModified Time 10/19/2024 10/19/2024 Patient presente d to office today for their Medicare Annual Wellness Visit. Education was provided on healthy nutrition, including a diet rich in fruits and vegetables, minimizing simple carbohydrates, salt, and saturated fats. Encouraged regular cardiovascular exercise such as walking at least 30 minutes daily, 5 times per week. Emphasized preventive health measures and educated pt on fall prevention and community-based lifestyle interventions to help reduce health risks and promote healthy living. [email or web address] Not available 10/17/2024 16:49:06 02/12/2025 02/12/2025 [id number] [place] [id number] (MANAGER STRATEGY) MDM HIGH MUST MEET 2 OUT OF 3 ELEMENTS: PROBLEMS, DATA OR RISK ELEMENT 1: PROBLEMS 1 OR MORE CHRONIC ILLNESS W/SEVERE EXACERBATION, PROGRESSION MAY REQUIRE HOSPITAL LEVEL CARE OR 1 ACUTE OR CHRONIC ILLNESS OR INJURY THAT POSES A THREAT TO LIFE OR BODILY FUNCTION ELEMENT 2: DATA: MUST MEET 2 OF 3 CATEGORIES CATEGORY 1 REVIEW OF PRIOR EXTERNAL NOTES REVIEW OF THE RESULTS ORDERING OF EACH TEST ASSESSMENT REQUIRING INDEPENDENT HISTORIAN(S) CATEGORY 2: INDEPENDENT INTERPRETATION OF TESTS BY ANOTHER PROVIDER/SPECIALI ST CATEGORY 3: DISCUSSION OF MGT OR TEST INTERPRETATION W/EXTERNAL PHYSICIAN/SPECIAL IST ELEMENT 3: RISK HIGH RISK OF MORBIDITY FROM ADDITIONAL DIAGNOSTIC TESTING OR TREATMENT PROVIDER MUST THOROUGHLY DOCUMENT EACH ELEMENT THAT IS COVERED The patient presented to their appointment today for multiple concerns requiring moderate to high-level decision making and took over 40-45 minutes for an adequate and appropriate history, exam, assessment and treatment plan. This appointment was done with an established patient. Not available 02/12/2025 15:23:59 03/13/2025 03/13/2025 [id number] [place] [id number] (MANAGER STRATEGY) [facility] HIGH MUST MEET 2 OUT OF 3 ELEMENTS: PROBLEMS, DATA OR RISK ELEMENT 1: PROBLEMS 1 OR MORE CHRONIC ILLNESS W/SEVERE EXACERBATION, PROGRESSION MAY REQUIRE HOSPITAL LEVEL CARE OR 1 ACUTE OR CHRONIC ILLNESS OR INJURY THAT POSES A THREAT TO LIFE OR BODILY FUNCTION ELEMENT 2: DATA: MUST MEET 2 OF 3 CATEGORIES CATEGORY 1 REVIEW OF PRIOR EXTERNAL NOTES REVIEW OF THE RESULTS ORDERING OF EACH TEST ASSESSMENT REQUIRING INDEPENDENT HISTORIAN(S) CATEGORY 2: INDEPENDENT INTERPRETATION OF TESTS BY ANOTHER PROVIDER/SPECIALI ST CATEGORY 3: DISCUSSION OF MGT OR TEST INTERPRETATION W/EXTERNAL PHYSICIAN/SPECIAL IST ELEMENT 3: RISK HIGH RISK OF MORBIDITY FROM ADDITIONAL DIAGNOSTIC TESTING OR TREATMENT PROVIDER MUST THOROUGHLY DOCUMENT EACH ELEMENT THAT IS COVERED The patient presented to their appointment today for multiple concerns requiring moderate to high-level decision making and took over 40-45 minutes for an adequate and appropriate history, exam, assessment and treatment plan. This appointment was done with an established patient. Not available 03/13/2025 09:35:52 04/19/2025 04/19/2025 The patient presented to their appointment today for multiple concerns requiring moderate to high-level decision making and took over 40-45 minutes for an adequate and appropriate history, exam, assessment and treatment plan. This appointment was done with an established patient.. [id number] [place] [id number] (MANAGER STRATEGY) [facility] HIGH MUST MEET 2 OUT OF 3 ELEMENTS: PROBLEMS, DATA OR RISK ELEMENT 1: PROBLEMS 1 OR MORE CHRONIC ILLNESS W/SEVERE EXACERBATION, PROGRESSION MAY REQUIRE HOSPITAL LEVEL CARE OR 1 ACUTE OR CHRONIC ILLNESS OR INJURY THAT POSES A THREAT TO LIFE OR BODILY FUNCTION ELEMENT 2: DATA: MUST MEET 2 OF 3 CATEGORIES CATEGORY 1 REVIEW OF PRIOR EXTERNAL NOTES REVIEW OF THE RESULTS ORDERING OF EACH TEST ASSESSMENT REQUIRING INDEPENDENT HISTORIAN(S) CATEGORY 2: INDEPENDENT INTERPRETATION OF TESTS BY ANOTHER PROVIDER/SPECIALI ST CATEGORY 3: DISCUSSION OF MGT OR TEST INTERPRETATION W/EXTERNAL PHYSICIAN/SPECIAL IST ELEMENT 3: RISK HIGH RISK OF MORBIDITY FROM ADDITIONAL DIAGNOSTIC TESTING OR TREATMENT PROVIDER MUST THOROUGHLY DOCUMENT EACH ELEMENT THAT IS COVERED Not available 04/19/2025 11:44:33 Plan of Treatment Reminders Order Date Submit Date Provider Last Modified By Organization Details Last Modified Time Details Appointments MEDICARE ANNUAL WELLNESS 2025 11:00A M DR PERSAUD Not available Not available Not available Lab TSH + free T4, serum 2024 025 [email or web address] 10 [facility], [address] [place] [address], [id number], 05/20/2025 11:47:56 ESR (erythroc yte sedimenta tion rate), blood 2024 025 [facility], [address] [place] [address], [id number], 05/13/2025 14:10:41 C reactive protein, QN, serum or plasma 2024 025 [facility], [address] [place] [address], [id number], 05/10/2025 15:23:32 CMP, serum or plasma 2024 025 [facility], [address] [place] [address], [id number], 05/10/2025 15:23:32 CBC w/ auto diff 2024 025 [facility], [address] [place] [address], [id number], 05/13/2025 12:50:38 urinalysi s complete, reflex culture 2024 025 [facility], [address] [place] [address], [id number], 05/13/2025 12:55:23 pro BNP (pro B-type natriuret ic peptide), serum or plasma 2024 025 [facility], [address] [place] [address], [id number], 05/10/2025 15:23:32 hemoglobi n A1c, QN, blood 2024 025 [facility], [address] [place] [address], [id number], 05/13/2025 13:10:25 lipid panel, blood 2024 025 [facility], [address] [place] [address], 019[address], 04/19/2025 11:54:03 CBC 2024 025 [facility], [address] [place] [address], [id number], 03/20/2025 08:11:04 lipid panel, blood 2024 025 [facility], [address] [place] [address], [id number], 03/13/2025 09:44:57 CMP, serum or plasma 2024 025 [facility], [address] [place] [address], [id number], 03/14/2025 12:51:32 CBC w/ auto diff 2024 025 [facility], [address] [place] [address], [address], 03/13/2025 09:44:57 TSH, serum or plasma 2024 025 [facility], [address] [place] [address], [address], 03/13/2025 09:44:57 CBC w/ auto diff 2023 024 [facility], [address] [place] [address], [address], 10/19/2024 10:51:02 CMP, serum or plasma 2023 024 [facility], [address] [place] [address], 87[address], 10/19/2024 10:51:02 lipid panel, blood 2023 024 [facility], [address] [place] [address], [id number], 10/19/2024 10:51:02 hemoglobi n, gastroint estinal, stool 2023 024 [facility], [address] [place], [address], 10/19/2024 10:51:02 Referral orthopedi c surgeon referral 2024 025 [facility], [address] [place] [address], [address], 04/26/2025 09:11:29 Procedures None recorded. Surgeries None recorded. Imaging US, echocardi ogram 2024 025 [facility], [address] [place] [address], [id number], 05/13/2025 08:26:16 holter monitor 2024 025 [facility], [address] [place] [address], [address], 05/26/2025 19:34:52 FL, modified barium swallow study 2024 025 [facility], [address] [place] [address], [address], 02/19/2025 08:14:57 XR, sinuses, paranasal , 3 or more view 2024 025 [facility], [address] [place] [address], [id number], 03/06/2025 09:04:06 CT, chest, w/o contrast 2024 025 [facility] (Screening Mammos, 6-Mos F-Up, Breast Procedures), [address] [place] [address], [address], 02/13/2025 08:32:04 MAMMO, screening , digital, bilateral 2023 024 [facility] (Screening Mammos, 6-Mos F-Up, Breast Procedures), [address] [place] [address], [address], 11/02/2024 09:30:33 bone density 2023 024 [facility], [address] [place] [address], [address], 11/02/2024 09:30:33 Medication Orders Xarelto [address] [facility]2024, [address] [place], [address], 04/19/2025 11:23:30 Eliquis 5 mg tablet 2024 025 [facility] [address] [place], [address], 03/13/2025 09:29:25 omeprazol e 20 mg capsule,d elayed release 2023 024 [facility] [address] [place], [address], 02/12/2025 15:13:54 Patient TargetsNo targets recorded. Patient Instructions Encounter Date Encounter Id Patient Instructions Last Modified By Organization Details Last Modified Time 10/19/2024 [id number] chronic cough: care instructions Not available 10/19/2024 10:49:44 advance care planning: care instructions Not available 10/19/2024 10:49:44 pulse oximetry* Not available 10/19/2024 10:49:44 learning about asthma Not available 10/19/2024 10:49:44 atrial fibrillation: care instructions Not available 10/19/2024 10:49:44 Discussed and explained advance directives such as standard forms to the patient. Face to face discussion lasted for a duration of __12_ minutes. Not available 10/19/2024 10:50:09 02/12/2025 [id number] learning about swallowing problems Not available 02/12/2025 15:25:17 chronic cough: care instructions Not available 02/12/2025 15:25:17 interstitial benny g disease: care instructions Not available 02/12/2025 15:25:17 03/13/2025 [id number] pulse oximetry* ROBE Not available 03/13/2025 09:41:07 chronic cough: care instructions Not available 03/13/2025 09:37:43 04/19/2025 [id number] pulse oximetry* Not available 04/19/2025 11:43:12 Reason for Referral Orthopedic Surgeon Referral for Osteoarthritis of right knee joint Referring Physician: Salvador Persaud, Internal Medicine, Encounter Date: 04/19/2025 Results Created Date Observation Date Name Description Value Unit Range Abnormal Flag Note LastModifiedBy Organization Detail LastModifiedTime 10/19/20 24 10/19/2024 pulse oxime try* Result 98% Not Available [facility] [address] [place] [address], [phone], 10/17/2024 16:49:17 03/13/20 25 03/13/2025 pulse oxime try* Result 98 Not Available [facility] [address] [place] [address], [place], [address], 03/10/2025 19:31:53 04/19/20 25 04/19/2025 pulse oxime try* Result 97 Not Available [facility] [address] [place] [address], [phone], 04/18/2025 20:28:48 11/20/19 25 10/03/2024 lara r monit or No observ atcritical access hospital record ed. [facility] [address], [address], 11/22/2024 22:33:24 02/26/20 25 02/21/2025 CT, chest , w/o contr ast No observ ation record ed. [email or web address] [place] [address], [address], 02/25/2025 22:08:50 03/06/20 25 03/06/2025 FL, modif ied stephanie gutierrez ow study No observ ation record ed. [email or web address] [place] [address], [address], 03/07/2025 19:07:43 03/06/20 25 03/06/2025 XR, sinus es, paran donald, 3 or more view No observ ation record ed. [email or web address], [address], 03/07/2025 19:08:03 03/18/20 25 03/15/2025 MAMMO , scree samantha, digit al, bilat eral No observ ation record ed. [email or web address]) - Callback Orders Only [address] [place], [address], 03/18/2025 21:23:35 05/01/20 25 05/01/2025 MAMMO , diagn ostic , unila teral No observ ation [facility] ed. [facility] [address] [place], [address], 05/01/2025 15:08:31 05/01/20 25 05/01/2025 US, breas t, unila teral , limit ed No observ ation record ed. [email or web address], [address], 05/01/2025 16:20:51 05/26/20 25 05/24/2025 lara r monit or No observ ation record ed. [email or web address] [facility] [address], [place], [address], 05/27/2025 10:09:11 06/13/20 25 06/13/2025 US, echoc ardio gram No observ ation record ed. [facility] [address] , [place], [address], 06/14/2025 08:29:11 Result Notes None recorded. Problems Name Problem SNOMED Code Status Onset Date Resolution Date Notes Provider Name and Address Organization Details Recorded Time Replacem ent of aortic valve Completed 201001/14/2021 Salvador Persaud, DO [address] [facility], [place], [address], [facility] 1 12:39:21 Hyperten sive disorder 91005740 Active 2017 Oralia dong [facility] 8 14:13:11 Allergic rhinitis 47162389 Active 2017 Oralia Abebe [facility] 8 14:13:17 Headache 48193365 Active 2017 cluster vs opthalam ic migraine Oralia dong [facility] 8 14:13:36 Mitral valve regurgit ation 99922642 Active 2017 Oralia Abebe [facility] 8 14:13:47 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 14025981 Active 2017 Oralia Abebe [facility] 8 14:14:24 Aortic valve stenosis 04870739 Active 2017 Oralia Abebe [facility] 8 14:14:33 Hypercho lesterol emia 20138039 Active 2017 Oralia dong [facility] 8 14:14:39 Hypothyr oidism 25339965 Active 2017 Oralia Abebe [facility] 8 14:14:44 Aneurysm of thoracic aorta 093967258 [facility] 14:14:55 Aortic valve disorder 1811161 Active 2017 had AVR in 2010 Salvador Persaud, DO [address] [place] [address], [address], [facility] 3 10:21:25 Coronary artery bypass graft occlusio n 044462303 Active 2017 [facility] 8 14:15:39 Gastroes ophageal reflux disease 534842723 Active 2017 [facility] 8 14:15:45 Hiatal hernia 57952643 Active 2017 Oralia dong [facility] 8 14:15:51 Syncope 892484843 Active 2017 Oralia dong [facility] 8 14:15:56 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 9 12:05:21 Osteoart hritis of right knee joint 6349332163 69982 Active 2018 Salvador Persaud, [address] [place] [address], [address], [facility] 5 11:41:36 Chest pain 21229105 Active 2021 Salvador Persaud, DO [address] [place] [address], [address], [facility] 2 11:45:43 Insomnia 145327282 Active 2021 Salvador Mike Annabelle, DO [address] [place] [address], [address], [facility] 2 15:26:37 Acute sinusiti s 39969138 Active 2021 Salvador SantiagoDemetria Persaud, DO [address] [place] [address], [address], [facility] 2 14:00:17 Reactive airway disease 7284448942 06 Active 2021 Salvador Persaud DO [address] [place] [address], [address], [facility] 2 10:00:22 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 Salvador Persaud DO [address] [place] [address], [address], [facility] 3 21:14:52 Allergic conjunct ivitis of bilatera l eyes 2520749721 48638 Active 2022 Salvador Persaud DO [address] [place] [address], [address], [facility] 3 09:27:43 Dizzines s 234701991 Active 2022 Salvador Persaud DO [address] [place] [address], [address], [facility] 3 10:20:49 Lyme disease 08989367 Active 2022 Salvador Persaud DO [address] [place] [address], [address], [facility] 3 10:26:50 Fracture of olecrano n 734100222 Active 2023 Salvador Persaud [address], [address], [facility] 4 15:04:24 Syncope and collapse 897466609 Active 2023 Salvador Persaud [address], [address], [facility] 4 22:28:12 Atrial fibrilla tion 02466400 Active 2023 Salvador Persaud [address], [address], [facility] 4 13:54:41 Paroxysm al atrial fibrilla tion 433490639 Active 2023 Salvador Persaud [address], [address], [facility] 4 13:55:02 Acute conjunct ivitis of bilatera l eyes 3362434350 05397 Active 2023 Salvador Persaud DO [address] [place] [address], [address], [facility] 4 14:02:12 Weakness of left hand 8504645339 5634255 Active 2023 Salvador Persaud [address], [address], [facility] 4 15:58:26 Pain in bilatera l legs 5988096717 7354603 Active 2023 Salvador Persaud DO [address] [place] [address], [address], [facility] 4 16:00:39 Dyspnea on exertion 43697837 Active 2023 Salvador Persaud [address], [address], [facility] 4 16:02:44 Asthma 862438493 Active 2023 ALVIN BERNAL [address] [place] [address], [address], [facility] 4 16:16:50 Chronic cough 06549567 Active 2023 Salvador Persaud, DO [address] [place] [address], [address], [facility] 5 09:35:11 Intersti tial lung disease 561961681 Active 2024 Salvador Persaud, DO [address] [place] [address], [address], [facility] 5 15:16:05 Dysphagi a 92972848 Active 2024 Salvador Persaud, DO [address] [place] [address], [address], [facility] 5 15:16:51 Nocturia 857656997 Active 2024 Salvador Persaud DO [address] [place] [address], [address], [facility] 5 09:31:20 Polyp of nasal sinus 19280235 Active 2024 Salvador Persaud DO [address] [place] [address], [address], [facility] 5 09:35:21 Atypical chest pain 045502268 Active 2024 Salvador Persaud DO [address] [place] [address], [address], [facility] 5 11:38:19 Pain of right knee joint 1743574597 96748 Active 2024 Salvador Persaud DO [address] [place] [address], [address], [facility] 5 11:38:34 Bilatera l lower limb edema 630714825 Active 2024 ALVIN BERNAL [address] [place] [address], [address], [facility] 5 15:13:22 Balta hematuri a 230523833 Active 2024 Salvador PersaudDO [address] [place], [address], [facility] 5 14:34:58 Problem Notes None recorded. Procedures Surgical History Date Name Laterality Status Provider Name and Address Organization Details Recorded Time 020 Corticosteroid Injection completed Salvador Persaud [address] [place], [address], [facility] 07/18/2020 11:11:24 019 Corticosteroid Injection completed Salvador Persaud [address] [place], [address], [facility] 08/08/2019 10:44:54 Imaging Results None recorded. Procedure Notes None recorded. Medical Equipment None Reported. Allergies No known drug allergies Medications Name Sig Start Date Stop Date Status Note LastModified by Organization Details LastModified Time amoxicillin 500 mg capsule take 4 capsules by mouth 1 hour prior to appointme nt 03/24 completed Not Available Not Available Not Available atorvastati n 40 mg tablet TAKE 1 TABLET BY MOUTH EVERY DAY active Not Available Not Available No t Available desonide 0.05 % topical cream APPLY SPARINGLY AND RUB GENTLY INTO THE AFFECTED AREA TWICE A DAY 05/10 completed Not Available Not Available Not Available atorvastati n 80 mg tablet Take 1 tablet every day by oral route for 90 days. 08/08 completed Not Available Not Available Not Available doxycycline hyclate 100 mg capsule TAKE 1 CAPSULE BY MOUTH TWICE A DAY FOR 10 DAYS 03/28 completed Not Available Not Available Not Available diltiazem CD 180 mg capsule,ext ended release 24 hr TAKE 1 CAPSULE BY MOUTH EVERY DAY active Not Available Not Available No t Available isosorbide mononitrate ER 30 mg tablet,exte nded release 24 hr 02/13 completed Not Available Not Available Not Available meclizine 12.5 mg tablet Take 1 tablet 3 times a day by oral route as needed for 7 days. 10/31 completed Not Available Not Available Not Available amlodipine 5 mg tablet TAKE 1 TABLET BY MOUTH DAILY. 05/16 completed Not Available Not Available Not Available sulfamethox azole 800 mg-trimetho prim 160 mg tablet Take 1 tablet every 12 hours by oral route. 05/04 completed Not Available Not Available Not Available amoxicillin 500 mg tablet TAKE 4 TABLETS BY MOUTH 1 HOUR BEFORE DENTAL APPOINTME NT active Not Available Not Available No t Available levothyroxi ne 100 mcg tablet take 1 tablet by mouth once daily 12/11 completed Not Available Not Available Not Available levothyroxi ne 88 mcg tablet TAKE 1 TABLET BY MOUTH EVERY DAY 2024 active Not Available Not Available Not Avai lable benzonatate 100 mg capsule TAKE 1 CAPSULE BY MOUTH THREE TIMES A DAY FOR 10 DAYS 02/25 completed Not Available Not Available Not Available pantoprazol e 40 mg tablet,kisha yed release Take 1 tablet every day by oral route for 30 days. 12/11 completed Not Available Not Available Not Available neomycin-po lymyxin-dex ameth 3.5 mg/mL-10,00 0 unit/mL-0.1 % eye drops INSTILL 1 DROP INTO AFFECTED EYE(S) EVERY 3 TO 4 HOURS 05/10 completed Not Available Not Available Not Available olopatadine 0.1 % eye drops INSTILL 1 DROP INTO AFFECTED EYE TWICE A DAY AT AN INTERVAL OF 6 TO 8 HOURS 10/31 completed Not Available Not Available Not Available brimonidine 0.2 % eye drops 02/13 completed Not Available Not Available Not Available metoprolol tartrate 50 mg tablet TAKE 1/2 TABLET TWICE A DAY BY MOUTH 07/25 completed Not Available Not Available Not Available omeprazole 20 mg capsule,del ayed release TAKE 1 CAPSULE BY MOUTH EVERY DAY 02/12 completed Not Available Not Available Not Available diltiazem CD 120 mg capsule,ext ended release 24 hr TAKE 1 CAPSULE BY MOUTH EVERY DAY 11/20 completed Not Available Not Available Not Available Baby Aspirin 81 mg chewable tablet Chew 1 tablet every day by oral route. active Not Available Not Available No t Available diltiazem 30 mg tablet TAKE 1 TABLET BY MOUTH TWICE A DAY 07/25 completed Not Available Not Available Not Available doxycycline hyclate 100 mg tablet Take 1 tablet twice a day by oral route for 10 days. 10/11 completed Not Available Not Available Not Available amoxicillin 875 mg-potassiu m clavulanate 125 mg tablet TAKE 1 TABLET BY MOUTH EVERY 12 HOURS FOR 10 DAYS 10/27 completed Not Available Not Available Not Available oxycodone 5 mg tablet 01/14 completed Not Available Not Available Not Available escitalopra m 10 mg tablet 1 tablet daily 05/04 completed Not Available Not Available Not Available metoprolol tartrate 25 mg tablet TK 1 T PO BID 12/30 completed Not Available Not Available Not Available duloxetine 20 mg capsule,del ayed release TAKE 1 CAPSULE BY MOUTH EVERY DAY 06/13 completed Not Available Not Available Not Available Boostrix Tdap 2.5 Lf unit-8 mcg-5 Lf/0.5 mL intramuscul ar syringe 01/14 completed Not Available Not Available Not Available magnesium 250mg 1qd active Not Available Not Available Not Available Co Q-10 active Not Available Not Avail able Not Available Benefiber 10/27 completed Not Available Not Available Not Available GaviLyte-G 236 gram-22.74 gram-6.74 gram-5.86 gram oral solution 02/13 completed Not Available Not Available Not Available Prevnar 13 (PF) 0.5 mL intramuscul ar syringe 01/26 completed Not Available Not Available Not Available Xarelto 10 mg tablet TAKE 1 TABLET BY MOUTH EVERY DAY FOR 30 DAYS 04/19 completed Not Available Not Available Not Available Xarelto 20 mg tablet TAKE 1 TABLET BY MOUTH EVERY DAY WITH DINNER active Not Available Not Available No t Available Eliquis 5 mg tablet TAKE 1 TABLET BY MOUTH TWICE A DAY 03/13 completed Not Available Not Available Not Available fluticasone furoate 100 mcg-vilante rol 25 mcg/dose inhalation powder INHALE 1 PUFF EVERY DAY DIRECTED 02/12 completed Not Available Not Available Not Available Fluzone High-Dose 4974-0389 (PF) 180 mcg/0.5 mL intramuscul ar syringe 02/13 completed Not Available Not Available Not Available Shingrix (PF) 50 mcg/0.5 mL intramuscul ar suspension, kit 05/04 completed Not Available Not Available Not Available Fluad Quad 0201-7244(6 5yr up)(PF) 60 mcg (15 mcg x 4)/0.5mL IM syringe PHARMACY ADMINISTE RED 01/14 completed Not Available Not Available Not Available Vitals Date Recorded Body height Body mass index (BMI) Body weight Heart rate Oxygen saturation Systolic And Diastolic Provider Name and Address Organization Details Last Updated DateTime 5 157.48 cm 28.8 kg/m2 73802.0 8 g 75 /min 95 % 140/94 mm[Hg] Brandie Torres [facility] Medicine 5 15:06:09 Date Recorded Body height Body mass index (BMI) Body weight Heart rate Oxygen saturation Systolic And Diastolic Provider Name and Address Organization Details Last Updated DateTime 5 157.48 cm 28.7 kg/m2 42733 g 75 /min 98 % 120/78 mm[Hg] Salvador Persaud, DO [address] [place] [address], [address], [facility] Internal [facility] 5 09:18:50 Date Recorded Body height Body mass index (BMI) Body weight Oxygen saturation Heart rate Systolic And Diastolic Provider Name and Address Organization Details Last Updated DateTime 5 157.48 cm 29 kg/m2 51967.0 3 g 97 % 84 /min 128/82 mm[Hg] GUS VU [facility] Medicine 5 11:26:36 Date Recorded Body height Body mass index (BMI) Body weight Oxygen saturation Heart rate Systolic And Diastolic Provider Name and Address Organization Details Last Updated DateTime 5 157.48 cm 29.1 kg/m2 88991.1 9 g 96 % 78 /min 122/84 mm[Hg] GUS VU [facility] Medicine 5 15:07:37 Date Recorded Body height Body mass index (BMI) Body weight Heart rate Oxygen saturation Systolic And Diastolic Provider Name and Address Organization Details Last Updated DateTime 4 157.48 cm 29.5 kg/m2 04139.1 7 g 78 /min 98 % 120/78 mm[Hg] Devan Robbins [facility] Internal Medicine 4 10:28:57 Social History Question Answer Notes LastModified by Organizat ion Details LastModified Time Tobacco Smoking Status Never Smoker Not Available [facility] 09/16/2020 03:36:24 What Is Your Level Of Caffeine Consumption? Moderate 1-2 Cups Coffee Per Day [id number] Information not available 09/16/2020 What Was The Date Of Your Most Recent Tobacco Screening? 05/10/2025 [email or web address] Information not available 05/10/2025 Sex: Unknown Functional Status Question Answer Note LastModified by Organization D etails LastModified Time What is your level of alcohol consumption? None [id number] Information not available 09/16/2020 What is your exercise level? None [id number] Information not available 09/16/2020 Mental Status None recorded. Family History Nothing Reported. Medical History No medical history recorded. Gynecological HistoryNo gynecological history recorded. Obstetrics History GPAL:G 0 P 0 0 0 0 Immunizations Vaccine Type Date Status Note Provider Nam e and Address Organization Details Recorded Time Influenza, adjuvanted, trivalent, PF 8 completed Not Available [facility] 12/06/2023 09:20:04 Influenza, split virus, quadrivalent, preservative 1 completed Not Available [facility] 12/06/2023 09:20:04 Influenza, high-dose, trivalent, PF 2 completed Not Available [facility] 12/06/2023 09:20:04 COVID-19, mRNA, LNP-S, PF, 30 mcg/0.3 mL dose, scooter-sucrose 1 completed Not Available [facility] 12/06/2023 09:20:04 influenza, unspecified formulation 4 completed Brandie dong [facility] Medicine 09/14/2024 09:12:08 influenza, unspecified formulation 5 completed Salvador Persaud, DO [address] [facility], [place], [address], [facility] 09/22/2025 08:37:24 zoster live 8 completed Not Available [facility] 12/06/2023 09:20:04 zoster live 9 completed Not Available [facility] 12/06/2023 09:20:04 Influenza, split virus, quadrivalent, preservative 9 completed Not Available [facility] 12/06/2023 09:20:04 Tdap 9 completed Not Available [facility] 12/06/2023 09:20:04 COVID-19, mRNA, LNP-S, PF, 30 mcg/0.3 mL dose 1 completed Not Available [facility] 12/06/2023 09:20:04 COVID-19, mRNA, LNP-S, PF, 30 mcg/0.3 mL dose 1 completed Not Available [facility] 12/06/2023 09:20:04 Pneumococcal conjugate PCV 13 7 completed Not Available [facility] 12/06/2023 09:20:04 Past Encounters Encounter ID Performer Location Encounter Start Date Encounter Closed Date Diagnosis/Indication Diagnosis SNOMED-CT Code Diagnosis ICD10 Code Diagnosis IMO Codes Diagnosis Note [id number] Daija Colmenares NP, [facility] Internal Medicine [address] [facility], [place] [address] 02/13/2018 11:30:43 02/13/2018 12:40:15 Rib pain 994024964 R07.81 W11.XXXA Contusion of orbital tissues 90570227 W11.XXXA [id number] Daija Colmenares NP, [facility] Internal Medicine [address] [facility], [place] [address] 02/20/2018 11:23:59 02/20/2018 16:56:13 Pain of left hand 2417822925 67818 M79.642 use wrist splint, ice QID, call if no better Pain in right knee 86449 01706 60774 M25.561 [id number] Salvador Persaud [facility] Internal Medicine [address] [facility], [place] [address] 04/07/2018 11:21:59 04/07/2018 14:18:24 Hypertensive disorder 72561830 I10 bp stable no problems with med Congenital insufficiency of aortic valve 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 Internal Medicine [address] [facility],[place] [address] 07/19/2018 11:16:23 07/19/2018 13:50:42 Hypertensive disorder 22806630 I10 bp stable no problems with med Hypothyroidism 98338074 E03.9 will need tsh next lab draw Aortic valve stenosis 60 226947 I35.0 is due for echo soon and then follow up eval with cardiol Excessive sweating 42437 005 R61 possibley lexapro will change her to duloxetine [id number] Salvador Persaud [facility] Internal Medicine [address] [facility],[place] [address] 08/02/2018 15:36:42 08/02/2018 16:24:22 Hypothyroidism 72814252 E03.9 with too high dose and symptoms because of it lamin l decrease dose to 88 mcg and then will re chk lab in 3 mo Hypertensive disorder 38 787820 I10 bp stable no problems with med Aortic valve stenosis 60 961810 I35.0 is due for echo soon and then follow up eval with cardiol Hypercholesterolemia 136 80851 E78.00 will rechk 3 mo [id number] Salvador Persaud [facility] Internal Medicine [address] [facility],[place] [employer] ([place]: [place] [address] 09/05/2018 11:50:32 09/06/2018 16:29:22 Adult health examination 223461831 Z00.01 doing well will need to start walking more Active or passive immunization 245263139 Z23 needs pneumonia Osteopenia 643651581 M85 .80 [id number] Salvador Persaud [facility] Internal Medicine [address] [facility],[place] [address] 11/03/2018 10:50:24 11/03/2018 14:09:40 Hypertensive disorder 84532777 I10 bp stable no problems with med Hypothyroidism 33468551 E03.9 with too high dose and symptoms because of it decrease dose to 88 mcg and lab work is much improved and nl and pt feels better Aortic valve stenosis 60 436455 I35.0 is due for echo soon and then follow up eval with cardiol recent echo shows stable valve with no worsening Aneurysm o f thoracic aorta 034158850 I71.2 has been doing good overall her recent echo has been stable with diam at 4.4 Gastroesop hageal reflux disease 519057733 K21.9 [id number] Salvador Persaud [facility] Internal Medicine [address] [facility],[place] [address] 12/11/2018 11:33:03 12/11/2018 14:11:20 Fall on same level from slipping, tripping or stumbling 537971011 W01.0XXA Syncope 144815395 R55 syncope vs seizure Aneurysm o f thoracic aorta 977074221 I71.2 would like to visualize this again, pt will call cardio as they have been doing u/s in their office, however if unable to get appt within 2 weeks for this, then I will order u/s through [facility] Compressio n fracture of vertebral column 08833177 M48.50XA of thoracic spine pain controlled Neck pain 94571474 M54.2 declines muscle relaxant due to side effects which is reasonable , will try PT instead [id number] [facility] [address] [facility] [address] 01/26/2019 15:37:34 01/26/2019 16:38:23 Cellulitis 387996844 L03.90 Hypothyroidism 76143245 E03.9 stable Aortic valve stenosis 60 975367 I35.0 recent echo- up to date cardiologi st Hypercholesterolemia 136 67612 E78.00 on atorvastat in-well controlled [id number] [facility] [address] [facility],[place] [address] 05/04/2019 11:24:49 05/04/2019 14:15:19 Hypertensive disorder 78371679 I10 bp stable no problems with med Gastroesop hageal reflux disease 379933798 K21.9 overall is stable Hypercholesterolemia 136 83304 E78.00 will rechk 3 mo Hypothyroidism 09293349 E03.9 with too high dose and symptoms because of it decrease dose to 88 mcg and lab work is much improved and nl and pt feels better Left Achil les tendinitis 8458154716 72121 M76.62 will need PT refer Osteoarthr itis of right knee joint 2663916581 79582 M17.11 offered cortisone inject [id number] Salvador Persaud DO [facility] Internal Medicine [address] [facility],[place] [address] 08/08/2019 10:03:19 08/08/2019 10:55:34 Aortic valve stenosis 27428509 I35.0 note she has had a few weird little cp which last seconds but also had a episode of near syncope which lasted less than a minute and has since not returned is due for echo soon and then follow up eval with cardiol next week and she will tell them about this last echo shows stable valve with no worsening Aneurysm o f thoracic aorta 425875864 I71.2 has been doing good overall her last echo has been stable with diam at 4.4 Osteoarthr itis of right knee joint 9856334249 33839 M17.11 offered cortisone inject and this was well tolerated post procedure Hypercholesterolemia 136 28115 E78.00 note that she had stopped the atorvastat 80 and felt much better she resumed at lower dose at 40mg and has been doing ok Mass of lower limb 98822 7000 R22.40 R22.41 will refer patient for removal [id number] Salvador Persaud [facility] Internal Medicine [address] [facility],[place] [address] 01/11/2020 15:20:04 01/11/2020 16:02:02 Aspiration into respiratory tract 501237139 T17.218A pt aspirated gastric contents into her lungs after having a GI illness has a dry cough and throat irritation but otherwise no symptoms f/u if symptoms worsen Nausea, vo miting and diarrhea 1468012 R11.2 GI illness for the last five days Son was ill with the same illness feeling better today [id number] Salvador Persaud DO [facility] Internal Medicine [address] [facility],[place] [address] 07/18/2020 10:38:52 07/18/2020 11:56:16 Osteoarthritis of right knee joint 2183456778 52955 M17.11 offered cortisone inject and this was well tolerated post procedure [id number] Salvador Persaud DO [facility] Internal Medicine [address] [facility],[place] [address] 01/14/2021 11:49:47 01/14/2021 13:46:54 Hypertensive disorder 26442918 I10 bp stable no problems with med Hypothyroidism 95021151 E03.9 with too high dose and symptoms because of it decrease dose to 88 mcg and lab work is much improved and nl and pt feels better Osteoarthr itis of right knee joint 1225050189 35808 M17.11 offered cortisone inject and this was well tolerated post procedure Atypical chest pain 1025 88112 R07.89 believe we need to get this looked after given her hx (2010 cabg and valkve) we will order echo ett Monoclonal gammopathy of uncertain significance 829659397 D47.2 qill re chk lB [id number] Salvador Persaud [facility] Internal Medicine [address] [facility] [address],[place] [address] 03/24/2021 10:59:21 03/24/2021 11:36:56 Active or passive immunization 007887740 Z23 utd received [facility] Adult [facility] th examination 381576362 Z00.00 doing well having an ongoing issue with her foot and knee cydney the left knee reviewed lab as well as the recent echo lab is good MGUS i s still apparent in spep echo was excellent with no signif changes aortic ascen is down to 4cm [id number] Salvador Persaud DO [facility] Internal Medicine [address] [facility] [address],[place] [address] 10/19/2021 14:48:09 10/19/2021 15:49:16 Hypothyroidism 87780110 E03.9 with too high dose and symptoms because of it decrease dose to 88 mcg and lab work is much improved and nl and pt feels better Hypertensive disorder 38 589112 I10 bp stable no problems with med Hypercholesterolemia 136 06622 E78.00 note that she had stopped the atorvastat 80 and felt much better she resumed at lower dose at 40mg and has been doing ok Aneurysm o f thoracic aorta 295885841 I71.2 has been doing good overall her last echo has been stable with diam at 4.4 Aortic valve stenosis 60 383116 I35.0 note she has had a few weird little cp which last seconds but also had a episode of near syncope which lasted less than a minute and has since not returned is due for echo soon and then follow up eval with cardiol next week and she will tell them about this last echo shows stable valve with no worsening Monoclonal gammopathy of uncertain significance 289105668 D47.2 qill re chk lB Osteoarthr itis of right knee joint 0944389195 63576 M17.11 we will have her refferred to dr Lazo and also we will need xr [place] [id number] Salvador Persaud [facility] Internal Medicine [address] [facility], [place] [address] 12/30/2021 14:10:44 12/30/2021 15:40:03 Gastroesophageal reflux disease 875366545 K21.9 r/o cardiovasc ular abnormalit ies vs GERD Atypical chest pain 1025 82416 R07.89 will also contact her cardiologi st as mayco send her for EKG at [facility] as our machine is not working [id number] Salvador Persaud [facility] Internal Medicine [address] [facility],[place] [address] 02/12/2022 11:03:54 02/12/2022 16:26:51 Aneurysm of thoracic aorta 271273662 I71.2 has been doing good overall her last echo has been stable with diam at 4.4 Hypertensive disorder 38 296890 I10 bp stable no problems with med Hypothyroidism 69008909 E03.9 had dose changed to 88 mcg and lab work is much improved and nl and pt feels better Chest pain 96956667 R07. 9 full work up is neg for ongoing ischemia [id number] Salvador Persaud [facility] Internal Medicine [address] [facility],[place] [address] 04/23/2022 14:43:41 04/23/2022 15:30:55 Active or passive immunization 704817440 Z23 patient advised she is due for pneu 23 Adult heal th examination 106108752 Z00.01 doing well having an ongoing issue with her foot and knee cydney the left knee reviewed lab as well as the recent echo lab is good MGUS i s still apparent in spep echo was excellent with no signif changes aortic ascen is down to 4cm Advance care planning 71 6531518 Z71.89 done Mitral rhoda ve regurgitation 48253416 I34.0 has been stable but we had an echo showed stable valves and LV etc Hypertensive disorder 38 445490 I10 bp stable no problems with med Insomnia 839839960 G47.0 0 she doesnt want RX we will have her try vallerian root + mellatonin [id number] Salvador Persaud [facility] Internal Medicine [address] [facility],[place] [facility] [place] [address] 10/27/2022 09:19:01 10/27/2022 10:46:15 Hypercholesterolemia 56715559 E78.00 note that she had stopped the atorvastat 80 and felt much better she resumed at lower dose at 40mg and has been doing ok 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 slow resolution lamin use tessalon Family his tory of aneurysm of blood vessel of brain 7186914913 5149693 Z82.49 just lost niece , sister has one as wellwiil need to check [id number] Salvador Persaud [facility] Internal Medicine [address] [facility] [address],[place] [address] 02/25/2023 08:59:16 02/25/2023 10:29:37 Hypertensive disorder 95638981 I10 bp stable no problems with med Hypothyroidism 67349763 E03.9 had dose changed to 88 mcg and lab work is much improved and nl and pt feels better Aneurysm o f thoracic aorta 043618897 I71.20 Allergic conjunctivitis of bilateral eyes 1136024282 36758 H10.13 [id number] Salvador Persaud [facility] Internal Medicine [address] [facility] [address],[place] [employer] [employer] [facility] [place] [address] 06/13/2023 14:17:02 06/13/2023 15:03:47 Active or passive immunization 184028683 Z23 patient advised she is due for pneu 23 Adult heal th examination 079842024 Z00.01 doing well having an ongoing issue with her foot and knee cydney the left knee reviewed lab as well as the recent echo lab is good MGUS i s still apparent in spep echo was excellent with no signif changes aortic ascen is down to 4cm Gastroesop hageal reflux disease 757040682 K21.9 overall is stable Aortic valve disorder 87 16099 I35.9 stable Hypercholesterolemia 136 48567 E78.00 note that she had stopped the atorvastat 80 and felt much better she resumed at lower dose at 40mg and has been doing ok Hypertensive disorder 38 079839 I10 bp stable no problems with med Hypothyroidism 87039848 E03.9 had dose changed to 88 mcg and lab work is much improved and nl and pt feels better [id number] Salvador Persaud [facility] Internal Medicine [address] [facility],[place] [address] 10/31/2023 09:50:54 10/31/2023 10:27:28 Hypertensive disorder 83655586 I10 bp stable no problems with med Reactive a irway disease 1105881650 06 J45.909 slow resolution lamin use tessalon Monoclonal gammopathy of uncertain significance 677257236 D47.2 qill re chk lB Hypothyroidism 73637421 E03.9 had dose changed to 88 mcg and lab work is much improved and nl and pt feels better Hypercholesterolemia 136 72573 E78.00 note that she had stopped the atorvastat 80 and felt much better she resumed at lower dose at 40mg and has been doing ok Aortic valve stenosis 60 862784 I35.0 note she has had a few weird little cp which last seconds but also had a episode of near syncope which lasted less than a minute and has since not returned is due for echo soon and then follow up eval with cardiol next week and she will tell them about this last echo shows stable valve with no worsening Dizziness 439733568 R42 we will try to decrease the metoprolol and see if this help s bp has been quite low [id number] Salvador Persaud DO [facility] Internal Medicine [address] [facility],[place] [employer] ([employer]: [place] [address] 03/28/2024 14:19:03 03/28/2024 16:40:41 Thoracic aortic aneurysm without rupture 16087921 I71.20 Depression screening 171 890483 Z13.31 Negative Screening Fracture of olecranon 28 0964270 S52.022C did well at rehab now home needs help with OT [id number] Salvador Persaud [facility] Internal Medicine [address] [place] [address] 04/30/2024 14:38:39 04/30/2024 15:20:19 Syncope 839351129 R55 here and wondering if her aortic valve is the culprit she has severe valve stenosis and im wondering if this is now critical she has fatigue dizziness and exertional dyspnea Syncope and collapse 309 218055 R55 poss cause as above Hypothyroidism 47470173 E03.9 had dose changed to 88 mcg and lab work is much improved and nl and pt feels better Aortic valve stenosis 60 340036 I35.0 as above has echo scheduled but we lamin have her get sooner than late [id number] Salvador Persaud [facility] Internal Medicine [address] [facility],[place] [address] 2024 13:32:13 2024 14:07:59 Paroxysmal atrial fibrillation 075926543 I48.0 we will not reinstate amlodipine will have her take diltiazem Atrial fibrillation 4943 6004 I48.91 Acute conj unctivitis of bilateral eyes 2343109864 51660 H10.33 [id number] Salvador Persaud [facility] Internal [facility] [address] [facility],[place] [address] 05/25/2024 11:10:31 05/25/2024 16:09:22 Paroxysmal atrial fibrillation 396140337 I48.0 tolerates the diltiazem and has had only one small episode of palpitatio ns initially and now nonewe will see her in a couple weeks and increase the diltiazem and decrease the metoprolol Syncope and collapse 309 428359 R55 poss cause as above Monoclonal gammopathy of uncertain significance 048612340 D47.2 qill re chk lB [id number] Salvador Persaud [facility] Internal [facility] [address] [facility],[place] [address] 06/15/2024 08:53:01 06/18/2024 11:02:35 Atrial fibrillation 05018988 I48.91 take half tab metoprolol for one week and the n stop Tick bite 83196399 W57.X XXA [id number] Salvador Persaud DO [facility] [address] [facility],[place] [address] 07/25/2024 15:14:56 07/25/2024 16:04:51 Atrial fibrillation 63244472 I48.91 take half tab metoprolol for one week and the n stop Hypercholesterolemia 136 64542 E78.00 note that she had stopped the atorvastat 80 and felt much better she resumed at lower dose at 40mg and has been doing ok Mitral rhoda ve regurgitation 13003550 I34.0 has been stable but we had an echo showed stable valves and LV etc Monoclonal gammopathy of uncertain significance 297633811 D47.2 will check Paroxysmal atrial fibrillation 016065975 I48.0 tolerates the diltiazem and has had only one small episode of palpitatio ns initially and now nonewe will see her in a couple weeks and increase the diltiazem and decrease the metoprolol Weakness of left hand 15 75333243 6089352 R29.898 will need to order NCT Pain in bi lateral legs 5239106277 9791901 M79.605 Dyspnea on exertion 6084 5006 R06.09 [id number] Salvador Persaud, [facility] Internal Medicine [address] [facility],[place] [address] 10/19/2024 10:22:56 10/19/2024 11:21:32 Adult health examination 699907816 Z00.00 doing well having an ongoing issue with her foot and knee cydney the left knee reviewed lab as well as the recent echo lab is good MGUS i s still apparent in spep echo was excellent with no signif changes aortic ascen is down to 4cm Screening for cardiovascular system disease 206974698 Z13.6 discussed in detail Screening for malignant neoplasm of colon 073102213 Z12.11 relates that she is utd Screening for osteoporosis [id number] Z13.820 bone density ordered Screening mammography 24 484924 Z12.31 is up to date Asthma [id number] J45.90 9 feels better with breo Atrial fibrillation 4943 6004 I48.91 on diltiazem Chronic cough 68269532 R 05.3 wondering if this is laryngeal reflux??? she does have a hx of gerdprilos ec will be tried for 1 month and see how Active or passive immunization [id number] Z23 patient advised she is due for prevnar rsv [id number] Salvador Persaud [facility] Internal Medicine [address] [facility], [place] [facility] [place] [address] 02/12/2025 14:56:55 02/12/2025 15:34:55 Atrial fibrillation 65882995 I48.91 on diltiazem and stable Hypercholesterolemia 136 91684 E78.00 note that she had stopped the atorvastat 80 and felt much better she resumed at lower dose at 40mg and has been doing ok but then sx came back and now she is off atorvastat in Hypertensive disorder 38 743449 I10 bp stable no problems with med Hypothyroidism 09673321 E03.9 had dose changed to 88 mcg and lab work is much improved and nl and pt feels better Interstiti al lung disease 374198906 J84.9 Dysphagia 48113262 R13.1 0 Chronic cough 38142786 R 05.3 failed omeprazole and fluticason e inhaler will look at sinuses as well as other work up [id number] Salvador Persaud DO [facility] Internal Medicine [address] [facility] [address] [address] 03/13/2025 09:11:04 03/13/2025 10:25:28 Asthma [id number] J45.909 feels better with breo Atrial fibrillation 4943 6004 I48.91 on diltiazem and stable but will change to xarelto Hypercholesterolemia 136 39345 E78.00 note that she had stopped the atorvastat 80 and felt much better she resumed at lower dose at 40mg and has been doing ok but then sx came back and now she is off atorvastat in Hypertensive disorder 38 349033 I10 bp stable no problems with med Hypothyroidism 52473709 E03.9 had dose changed to 88 mcg and lab work is much improved and nl and pt feels better Depression screening 171 734786 Z13.31 Negative Screening Nocturia 362494293 R35.1 61335374 Chronic cough 83760243 R 05.3 26533 from sinuses Polyp of nasal sinus 323 79156 J33.8 1238972 she will try flonase nasal [id number] Salvador Persaud [facility] Internal Medicine [address] [facility],[place] [address] 04/19/2025 11:17:49 04/19/2025 11:46:17 Depression screening 730430762 Z13.31 Negative Screening Asthma 836775488 J45.90 9 feels better with breo Atrial fibrillation 4943 6004 I48.91 on diltiazem and stable but will change to xarelto Hypercholesterolemia 136 34215 E78.00 note that she had stopped the atorvastat 80 and felt much better she resumed at lower dose at 40mg and has been doing ok but then sx came back and now she is off atorvastat in Hypothyroidism 74492627 E03.9 had dose changed to 88 mcg and lab work is much improved and nl and pt feels better Atypical chest pain 1025 02796 R07.89 077745 believe we need to get this looked after given her hx (2011 cabg and valkve) we will order echo ett Pain of ri ght knee joint [id number] 83539 M25.561 320129 Osteoarthr itis of right knee joint [id number] 15058 M17.11 8100685 we will have her refferred to dr Lazo and also we will need xr and get her into PT [id number] Salvador Persaud [facility] Internal Medicine [address] [facility],[place] [address] 05/10/2025 14:42:24 05/10/2025 15:37:06 Atrial fibrillation 90841324 I48.91 Bilateral lower limb edema 189185570 R60.0 [id number] Atypical chest pain 1025 75180 R07.89 537635 will also contact her cardiologi st as mayco send her for EKG at [facility] as our machine is not working Hypothyroidism 51183366 E03.9 Hypertensive disorder 38 188703 I10 Health Concerns Section Related Observation LastModified by Organization Marisel marroquin LastModified Time None Recorded Concern Status LastModified by Organization Details LastModified Time None Recorded Advance Directives Directive None Recorded Payers Insurance Date Sequence Insurance Name Policy Number Policy Almeida Covered Member ID Almeida Member ID Guarantor Name 10/19/2025 1 [place] [employer] Deidre Guadalupe [id number] Deidre Guadalupe 05/10/2025 2 [facility] [employer] 33D Deidre Guadalupe [id number] Deidre Guadalupe Notes Date Note Type Note Provider Name and Address Organization Details Recorded Time 024 text/ht ml Medicare Annual Wellness VisitReported by PatientSocial/Behavioral HistoryFor diet and nutrition, patient reportshealthy diet. For fracture risk, patient reportsno history of fractures,no recent explained fracture,no sudden unexplained fractures, andno previous musculoskeletal injuries. For physical activity, patient reportsexercises on a regular basis,recent increase in physical activity, andgood physical condition.Mental Status:For depression risk, patient reportsnever feels sad, empty, or tearful,no loss of interest in activities,no significant changes in weight,no sleep disturbances or insomnia,no agitation,no loss of energy,no feelings of worthlessness or guilt,no thoughts of suicide,no history of depression, andno history of mood disorders. For orientation, patient reportsno disorientation to time,no disorientation to date, andno disorientation to place. For concentration and memory, patient reportsno decreased concentrating ability,no memory lapses or loss, anddoes not forget words. For speech/motor difficulties, patient reportsno speech difficulties,no difficulty expressing formulated concepts,no difficulty with fine manipulative tasks,no difficulty writing/copying,no slowed reaction time, anddoes not knock things over when trying to pick them up.Functional AbilityFor hearing, patient reportsno loss of hearing. For vision, patient reportsno vision problems. For activities of daily living, patient reportsable to bathe with limited or no assistance,able to contol urination and bowels,able to dress with limited or no assistance,able to feed self with limited or no assistance,able to get out of chair or bed with limited or no assistance,able to groom with limited or no assistance, andable to toilet with limited or no assistance. For instrumental activities of daily living, patient reportsable to do house work with limited or no assistance,able to grocery shop with limited or no assistance,able to manage medications with limited or no assistance,able to manage money with limited or no assistance,able to prepare meals with limited or no assistance, andable to use the phone with limited or no assistance. For falls risk assessment, patient reportsno frequent falls while walking,no fall in the past year,no fall since last visit, andno dizziness/vertigo. For home safety, patient reportsno unsafe markus hazzards,no unsafe stairs,no unsafe gas appliances,working smoke/co detectors,wears protective head gear for biking/high velocity,use of seatbelts,practicing 'safer sex',no vision or hearing loss while driving,no fire arms,has hand bars in the bathroom/shower, andgood lighting in the home. Salvador Persaud, DO [address] [facility], [place], [address], [facility] 10/19/2024 10:56:32 025 text/ht ml Care Management - HypertensionReported by PatientHPIFor self care, patient reportsnot under emotional stress. For severity, patient reportssymptoms are improvinganddoes not interfere with daily activities. For associated symptoms, patient reportsno dizziness,no lightheadedness,no chest pain,no shortness of breath,no palpitations,no edema,no calf muscle cramps,no blurred vision,no confusion,no headaches, andno fatigue. Care Management - Atrial FibrillationReported by PatientCare ManagementFor medications, patient reportscompliant with medication. For prior imaging, patient reportsechocardiogramandrecent ecg.Interim HistoryFor associated symptoms, patient reportsno dizziness,no chest pain,no easy bruisability, andno rapid heart rate. Care Management - AsthmaReported by PatientHPIFor severity, patient reportsimproving,does not interfere with daily activities,does not disturb sleep, anddoes not cause nighttime awakening. For associated symptoms, patient reportsno fever,no fatigue,no irritability,no cough,normal appetite, andno change in productivity. Care Management - HyperlipidemiaReported by PatientHPIFor control, patient reportsusually well controlled,improving, andat goal. For complications, patient reportsno coronary artery disease,no heart attack,no cardiovascular disease,no pancreatitis, andno stroke.ROS as noted in the HPI here for rechk and is not any better s he has been on the omeprazole for >3 mo and the fluticasone also has not helped also having a pain in her left upper chest lower neck area that is constantly sore Salvador Mkie Annabelle, DO [address] [place], [address], [facility] 02/12/2025 15:27:18 025 text/ht ml Care Management - HypertensionReported by PatientHPIFor self care, patient reportsnot under emotional stress. For severity, patient reportssymptoms are improvinganddoes not interfere with daily activities. For associated symptoms, patient reportsno dizziness,no lightheadedness,no chest pain,no shortness of breath,no palpitations,no edema,no calf muscle cramps,no blurred vision,no confusion,no headaches, andno fatigue. Care Management - Atrial FibrillationReported by PatientCare ManagementFor medications, patient reportscompliant with medication. For prior imaging, patient reportsechocardiogramandrecent ecg.Interim HistoryFor associated symptoms, patient reportsno dizziness,no chest pain,no easy bruisability, andno rapid heart rate. Care Management - Acquired HypothyroidismReported by PatientCare ManagementFor medication education, patient reportsunderstands administration,understands effect of concurrent medications,understands missed doses, andunderstands consequences of noncompliance.Interim HistoryFor associated symptoms, patient reportsno abnormal weight gain,no tiredness,no dry skin,no cold intolerance,no constipation,no diarrhea, andno goiter. Care Management - HyperlipidemiaReported by PatientHPIFor control, patient reportsusually well controlled,improving, andat goal. For complications, patient reportsno coronary artery disease,no heart attack,no cardiovascular disease,no pancreatitis, andno stroke.ROS as noted in the HPI has been feeling awful and tired all the time no endurance feels like she is in a fognot active outside anymoresleep is fair bothered with nocturiaalso has had several nights of night sweatscoughing stilldoes live in a lida housereviewed ct scansinus xray and ba swallowall without serious issue except sinus polyp Salvador Mike Annabelle, DO [address] [place], [address], [facility] 03/13/2025 09:39:08 025 text/ht ml Care Management - HypertensionReported by PatientHPIFor self care, patient reportsnot under emotional stress. For severity, patient reportssymptoms are improvinganddoes not interfere with daily activities. For associated symptoms, patient reportsno dizziness,no lightheadedness,no chest pain,no shortness of breath,no palpitations,no edema,no calf muscle cramps,no blurred vision,no confusion,no headaches, andno fatigue. Care Management - Atrial FibrillationReported by PatientCare ManagementFor medications, patient reportscompliant with medication. For prior imaging, patient reportsechocardiogramandrecent ecg.Interim HistoryFor associated symptoms, patient reportsno dizziness,no chest pain,no easy bruisability, andno rapid heart rate. Care Management - Acquired HypothyroidismReported by PatientCare ManagementFor medication education, patient reportsunderstands administration,understands effect of concurrent medications,understands missed doses, andunderstands consequences of noncompliance.Interim HistoryFor associated symptoms, patient reportsno abnormal weight gain,no tiredness,no dry skin,no cold intolerance,no constipation,no diarrhea, andno goiter. Care Management - AsthmaReported by PatientHPIFor severity, patient reportsimproving,does not interfere with daily activities,does not disturb sleep, anddoes not cause nighttime awakening. For associated symptoms, patient reportsno fever,no fatigue,no irritability,no cough,normal appetite, andno change in productivity. Care Management - HyperlipidemiaReported by PatientHPIFor control, patient reportsusually well controlled,improving, andat goal. For complications, patient reportsno coronary artery disease,no heart attack,no cardiovascular disease,no pancreatitis, andno stroke.ROS as noted in the HPI priorhas been feeling awful and tired all the time no endurance feels like she is in a fognot active outside anymoresleep is fair bothered with nocturiaalso has had several nights of night sweatscoughing stilldoes live in a lida housereviewed ct scansinus xray and ba swallowall without serious issue except sinus polyp Salvador Persaud, DO [address] [facility], [place], [address], [facility] 04/19/2025 11:44:41 025 text/ht ml ROS as noted in the HPI c/o LE edema swelling kenia chest pain, swelling kenia LE and general fatigueworsened for about a month now hx of afib, recommended holter and echohas claims examiner, routine echo is scheduled for May, needs it soonerconsistent feeling of palpitations irregular heart rate with worsening fatigue will also have patient get blood work doneif CBC shows anemia will add an iron panel on if necessary recommended full cardiac work up and lab workpt agreedwill fu after results come in her BP is jumping around, ranging widely from 110/60-160/90 throughout the day with palpitations ALVIN BERNAL [address] [facility], [place], [address], [facility] 05/10/2025 15:28:34 OBGyn Episode No OBEpisode recorded.
== END 2025-11-11 09:01 ==
LOC: HO.MANLNP 09:00
PROVIDERS: Visit Provider Internal Medicine
DX: R31.0 Gross hematuria (principal)
CPT/HCPCS: 81001; 81003; 87086; 88112